=== PATIENT | female | born 1940 | race Two or more races ===

== ENCOUNTER → 2017-11-05 | Outpatient (CLI) | payer MEDICARE, OTHER ==
[2017-11-05 12:52] LABS: HCT 34.7 % (34.0-46.0); MCH 28.3 pg (25.0-35.0); MCHC 31.8 g/dL (31.0-37.0); MCV 89.2 fL (80.0-100.0); Mean Platelet Volume 7.1; Platelet Count 372 k/uL (150-450); RBC 3.89 m/uL (3.80-5.40); RDW 14.3 % (11.5-15.5)
[2017-11-05 13:07] LABS: Potassium 3.9 mmol/L (3.5-5.1)
== END | disposition home or self-care (01) ==
LOC: LABPAT 11:46
PROVIDERS: ATTEND Surgery
DX: Z01.812 Encounter for preprocedural laboratory examination (principal); C18.2 Malignant neoplasm of ascending colon
CPT/HCPCS: 36415; 80051; 85027

== ENCOUNTER 2017-11-12 07:51 | Inpatient (IN) | payer MEDICARE, OTHER ==
[2017-11-08 15:12] VITALS: BMI 45.3
[~2017-11-12 07:51] MED LIST: HYDROmorphone 0.5 MG/0.5 ML SYRINGE IVP PRN; MORPHINE SULFATE 4 MG/ML SYRINGE IV PRN; ONDANSETRON 4 MG/2 ML VIAL IVP PRN; ceFAZolin IN SWFI 2 GM/20 ML SYRINGE IVP ONE; metroNIDAZOLE-NS PMX 500 MG in SALINE 1 100ML.BAG IVPB ONE
--- NOTE | 2017-11-12 09:09 | P.GSHP ---
History of Present Illness H&P Date: 11/12/17 Chief Complaint: Cecal cancer Patient underwent service. She was seen in the office in mid September. The patient was found to have a friable mass in the cecum. She was found to be anemic. She describes some constipation at times. She had a CAT scan showing no metastatic spread. Normal CEA level. The patient is oxygen dependent. Recent hemoglobin 11 Past Medical History Past Medical History: Cancer, COPD, GI Bleed, Hyperlipidemia, Hypertension Additional Past Medical History / Comment(s): colon cancer, anemia, frequent urinary incontinence. 02-2.5L/NC, taking antibiotics prior to surgery for sinus issues History of Any Multi-Drug Resistant Organisms: None Reported Past Surgical History: Appendectomy, Breast Surgery, Hernia Repair, Hysterectomy , Tubal Ligation Past Anesthesia/Blood Transfusion Reactions: No Reported Reaction Smoking Status: Former smoker - Past Family History Sister(s) Family Medical History: Cancer, Coronary Artery Disease (CAD), Neurologic Disorder Additional Family Medical History / Comment(s): colon cancer, 2nd sister with MS Medications and Allergies Home Medications Medication Instructions Recorded Confirmed Type ALPRAZolam [Xanax] 0.25 mg PO DAILY PRN 11/08/17 11/12/17 History Amoxicillin 875 mg PO Q12HR 11/08/17 11/12/17 History Aspirin [Adult Low Dose Aspirin EC] 81 mg PO DAILY 11/08/17 11/12/17 History Ferrous Sulfate [Feosol] 325 mg PO BID 11/08/17 11/12/17 History Mirabegron [Myrbetriq] 50 mg PO DAILY 11/08/17 11/12/17 History Montelukast Sodium [Singulair] 10 mg PO HS 11/08/17 11/12/17 History Sertraline [Zoloft] 100 mg PO DAILY 11/08/17 11/12/17 History Simvastatin [Zocor] 20 mg PO HS 11/08/17 11/12/17 History Stool Softener 1 dose PO DAILY 11/08/17 11/12/17 History Valsartan/Hydrochlorothiazide 1 each PO DAILY 11/08/17 11/12/17 History [Valsartan-Hctz 160-12.5 mg Tab] Allergies Allergy/AdvReac Type Severity Reaction Status Date / Time Sulfa (Sulfonamide Allergy dry mouth Verified 11/12/17 08:39 Antibiotics) with difficulty swallowing Surgical - Exam Vital Signs Temp Pulse Resp BP Pulse Ox 98.0 F 94 16 123/68 98 11/12/17 08:30 11/12/17 08:30 11/12/17 08:30 11/12/17 08:30 11/12/17 08:30 Physical exam: General: Well-developed, well-nourished HEENT: Normocephalic, sclerae nonicteric Abdomen: Nontender, nondistended Extremities: No edema Neuro: Alert and oriented Assessment and Plan (1) Colon cancer Narrative/Plan: Will proceed with laparoscopic da Morteza assisted right colectomy, possible open right colectomy. Surgical risks were previously reviewed with the patient in detail. She understands and wishes to proceed. Please refer to H&P from my office on 10/10. Current Visit: Yes Status: Acute Code(s): C18.9 - MALIGNANT NEOPLASM OF COLON, UNSPECIFIED SNOMED Code(s): 159775596
[2017-11-12] MEDS: ALVIMOPAN 12 MG CAPSULE PO ONE ×2 (09:26→18:03)
[2017-11-12] MEDS: DEXAMETHASONE SOD PHOSPHATE 10 MG/ML 1 ML VIAL IV ONE ×2 (09:26→18:01)
[2017-11-12] MEDS: LACTATED RINGERS 1,000 ML IV SCH (09:26)
[2017-11-12] MEDS: HEPARIN SODIUM,PORCINE 5,000 UNIT/ML 1 ML VIAL SQ ONE ×2 (09:27→18:03)
[2017-11-12] MEDS: ONDANSETRON 4 MG/2 ML VIAL IVP ONE ×2 (09:27→18:02)
[2017-11-12] MEDS ORDERED: BUPIVACAINE (PF) 0.5% 30 ML VIAL SQ ONE (10:35)
[2017-11-12] MEDS ORDERED: LACTATED RINGERS 1,000 ML IV ONE ×3 (11:05→15:06)
[2017-11-12] MEDS ORDERED: INDOCYANINE GREEN 25 MG VIAL IV STA (11:11)
[2017-11-12] MEDS ORDERED: SODIUM CHLORIDE 0.9% 50 ML with ceFAZolin 1,000 MG IV ONE ×2 (14:07)
[2017-11-12] MEDS ORDERED: METOCLOPRAMIDE 5 MG/ML 2 ML VIAL IVP PRN (16:01)
[2017-11-12] MEDS ORDERED: ONDANSETRON 4 MG/2 ML VIAL IVP PRN (16:01)
[2017-11-12] MEDS ORDERED: DOXAPRAM 20 MG/ML 20 ML VIAL IV ONE (16:30)
[2017-11-12] MEDS ORDERED: NALOXONE 0.4 MG/ML 1 ML VIAL IV ONE (16:39)
--- NOTE | 2017-11-12 16:54 | P.OP ---
Date of Procedure: 11/12/17 Procedure(s) Performed: PREOPERATIVE DIAGNOSIS: Right-sided colon cancer POSTOPERATIVE DIAGNOSIS: Same PROCEDURE: Laparoscopic da Morteza assisted right colectomy with intracorporeal anastomosis SURGEON: Nicole EBL: Minimal see anesthesia records ANESTHESIA: General COMPLICATIONS: None OPERATIVE PROCEDURE: Patient was placed on the operating table in the supine position. The patient was placed under general anesthesia. A Wong catheter was placed. The patient's arms were tucked. The abdomen was prepped and draped in usual sterile fashion. Using the 5 mm optical trocar entered the perineal cavity in the left upper quadrant. Full insufflation took place to 15 mmHg. 3 additional trochars were placed for the robot a 12 mm in the left subcostal a 8 mm in the left lateral infraumbilical and a 12 mm in the superpubic location. A 5 mm trocar was placed in the left lateral abdomen. During the procedure this trocar was not staying in the peritoneal cavity and this was switched to an extended length 5. As a result of that trocar moving in and out of the peritoneum the patient developed some degree of subcutaneous emphysema at the completion of the procedure. The patient had adhesions between the omentum and the lower midline that were lysed using sharp dissection with cautery. The patient was placed in Trendelenburg right side up. The retroperitoneum was evaluated. The ileocolic pedicle was identified by retracting the cecum anteriorly and laterally. Careful dissection using both blunt dissection and cautery took place in the retroperitoneum. The duodenum was quickly identified despite the excess fatty tissue and this was protected throughout the remainder of the procedure. Our dissection took place laterally and circumferentially around the ileocolic pedicle. The ileocolic pedicle was divided using a 45 white load stapler. Once we reached the lateral abdomen from our retroperitoneal approach the ileum cecum and ascending colon were mobilized by incising the lateral peritoneal attachments. We entered into a retroperitoneal dissection plane. The ureter was not visualized however we maintained a plane anterior to the anticipated location of the ureter. The hepatic flexure was mobilized in a similar fashion although in that location we started using the vessel sealer. The gastrocolic omentum was dissected away from the proximal transverse colon. Once we were able to visualize the transverse colon and hepatic flexure well the transverse colon was divided using a blue load 45 stapler 2. The mesentery of the transverse colon was then divided using a combination of the vessel sealer and also the white load vascular 45 stapler. At this point our specimen was free and placed in the left upper quadrant. Irrigation took place of the operative site and no bleeding was seen. The terminal ileum was brought in an isoperistaltic manner adjacent to the transverse colon. 2 separate 3-0 GI silk stay sutures were placed proximally and distally. Small enterotomy and colotomy took place. At that time stapler was fired along the antimesenteric border of both the small bowel and the colon. 2 separate firings of the 45 blue load stapler were utilized. We had an adequate opening between the small bowel and colon at that point. The defect was closed transversely using a running full-thickness 20V lock suture. Once the defect was closed I used a running horizontal mattress Lambert suture along the length of the staple line and imbricated that entire staple line using the same 20V lock suture. The previously placed 3-0 GI silk sutures acted as stay sutures proximally and distally. Again irrigation took place with no evidence of bleeding. The specimen was grasped through the supraumbilical trocar site and the pneumoperitoneum was evacuated. The incision in the supraumbilical location was lengthened vertically through the previous hysterectomy scar site. The patient had very impressive amount of subcutaneous fat and the distance between the skin and the fascia at that location was approximately 10-12 cm. The fascia was opened lengthwise. The specimen was able to be retrieved. We were unable to use the Cristofer retractor that we had opened because of the distance between the skin and the peritoneum. The fascia was closed using a running double-stranded #1 PDS suture. The subcutaneous tissues were irrigated with saline. The subcutaneous tissues were closed using 3-0 Vicryl sutures. The skin at all locations were closed using isacc. Sterile dressings were applied. DISPOSITION: Stable to recovery room
[2017-11-12] MEDS: D5-0.45% NACL WITH KCL 20MEQ/L 1,000 ML IV SCH (18:05)
--- NOTE | 2017-11-12 19:17 | P.CNPUL ---
History of Present Illness Consult date: 11/12/17 Reason for consult: COPD History of present illness: A 77-year-old female patient is a very well-known to me due to advanced COPD, chronic hypoxic respiratory failure and I was asked to follow up this patient and evaluate her pulmonary status following her abdominal surgery. The patient was having iron loss anemia and she was further found to have a right colonic mass. The patient was taken to the operating room today and the patient underwent a Laparoscopic da Morteza assisted right colectomy with intracorporeal anastomosis. Estimated blood loss was minimal. I had a chance to evaluate this patient preoperatively for a preoperative pulmonary clearance. She has chronic hypoxic respiratory failure due to advanced COPD. She is on oxygen at all times and her baseline FEV1 based on a spirometer that was done back in 2016 is in the order of 40-41%. on today's evaluation her FEV1 is up to 56% of predicted at baseline. The patient has limitation exercise capacity secondary to COPD. She is able to perform activities of daily today life however she gets short of breath with mild to moderate activity and she is having hard time difficulties climbing a flight of stairs. No cough. No sputum production pedal chest pain. No signs of any recent COPD exacerbation. She is on a combination of Brovana and Pulmicort neb last treatment twice a day and albuterol solution twice a day. No swelling in lower extremities. No signs of any acute heart failure at this point. The patient has adequate pain control. She is under a lot of 0.5 mg on estimated basis. She is on Zofran. Hemodynamically stable. Awake and alert. No no breathing difficulties for now. She is pulse oxing 95% 2 L of oxygen by nasal cannula. Review of Systems Constitutional Constitutional: no fever, no night sweats, no significant weight loss, no exercise intolerance, weight gain (5lbs) Eyes Eyes: no dry eyes, no vision change, no irritation ENMT Ears: no difficulty hearing, no ear pain Nose: no frequent nosebleeds, no sinus problems, nose problems Mouth/Throat: no sore throat, no bleeding gums, no snoring, no dry mouth, no mouth ulcers, no oral abnormalities, no teeth problems Cardiovascular Cardiovascular: no chest pain, no arm pain on exertion, no shortness of breath when lying down, no palpitations, no known heart murmur, shortness of breath when walking Respiratory Respiratory: no cough, no wheezing, no coughing up blood, no sleep apnea, shortness of breath which is chronic related to her advanced COPD. Gastrointestinal Gastrointestinal: no abdominal pain, no nausea, no vomiting, normal appetite, no diarrhea, not vomiting blood, no dyspepsia, no GERD, constipation Genitourinary Genitourinary: no incontinence, no difficulty urinating, no hematuria, no increased frequency Musculoskeletal Musculoskeletal: no muscle aches, no muscle weakness, no back pain, no swelling in the extremities, arthralgias/joint pain Integumentary Skin: no abnormal mole, no jaundice, no rashes, no laceration Neurologic Neurologic: no loss of consciousness, no weakness, no numbness, no seizures, no dizziness, no migraines, no headaches, no tremor Psychiatric Psych: no depression, no sleep disturbances, feeling safe in a relationship, no alcohol abuse, no anxiety, no hallucinations, no suicidal thoughts Endocrine Endocrine: no fatigue Hematologic/Lymphatic Hematologic/Lymphatic no swollen glands, no bruising, no excessive bleeding Allergic/Immunologic Allergy/Immunologic: no runny nose, no sinus pressure, no itching, no hives, no frequent sneezing 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, hypertension, hyperlipidemia, obesity History of Any Multi-Drug Resistant Organisms: None Reported Past Surgical History: Appendectomy, Breast Surgery, Hernia Repair, Hysterectomy , Tubal Ligation Past Anesthesia/Blood Transfusion Reactions: No Reported Reaction Smoking Status: Former smoker - Past Family History Sister(s) Family Medical History: Cancer, Coronary Artery Disease (CAD), Neurologic Disorder Additional Family Medical History / Comment(s): colon cancer, 2nd sister with MS Medications and Allergies Home Medications Medication Instructions Recorded Confirmed Type ALPRAZolam [Xanax] 0.25 mg PO DAILY PRN 11/08/17 11/12/17 History Amoxicillin 875 mg PO Q12HR 11/08/17 11/12/17 History Aspirin [Adult Low Dose Aspirin EC] 81 mg PO DAILY 11/08/17 11/12/17 History Ferrous Sulfate [Feosol] 325 mg PO BID 11/08/17 11/12/17 History Mirabegron [Myrbetriq] 50 mg PO DAILY 11/08/17 11/12/17 History Montelukast Sodium [Singulair] 10 mg PO HS 11/08/17 11/12/17 History Sertraline [Zoloft] 100 mg PO DAILY 11/08/17 11/12/17 History Simvastatin [Zocor] 20 mg PO HS 11/08/17 11/12/17 History Stool Softener 1 dose PO DAILY 11/08/17 11/12/17 History Valsartan/Hydrochlorothiazide 1 tab PO DAILY 11/08/17 11/12/17 History [Valsartan-Hctz 160-12.5 mg Tab] Allergies Allergy/AdvReac Type Severity Reaction Status Date / Time Sulfa (Sulfonamide Allergy dry mouth Verified 11/12/17 08:39 Antibiotics) with difficulty swallowing Physical Exam Vitals: Vital Signs Temp Pulse Pulse Resp BP BP Pulse Ox 11/12/17 17:30 88 16 139/63 95 11/12/17 17:15 90 16 131/57 95 11/12/17 16:45 108 H 14 142/63 94 L 11/12/17 16:30 97 16 164/69 99 11/12/17 16:15 92 12 151/66 98 11/12/17 16:05 97.2 F L 102 H 22 156/76 96 11/12/17 08:30 98.0 F 94 16 123/68 98 Intake and Output 11/12/17 11/12/17 11/12/17 06:59 14:59 22:59 Intake Total 3250 1000 Output Total 550 Balance 3250 450 Intake: IV 3250 1000 Output: Urine 450 Estimated Blood Loss 100 General Appearance no diaphoresis, no respiratory distress, speech not interrupted by breaths, no dyspnea, no pallor, not cachectic, well nourished, appears well, obesity HEENT no pursed lip breathing, no jugular venous distention, no mucous membrane cyanosis, no perioral cyanosis, mallampati classification: class 1, Mallampati Classification: Class 3 Chest no barrel chest, no retractions, no sternocleidomastoid muscle contractions, no supraclavicular retractions, no intercostal retractions, no prolonged expiratory wheezing, no decreased air movement, no rhonchi, no hyperinflation, decreased air movement Heart no right ventricular heave, no distant heart sounds, no s3 gallop GI bowel sounds: hyperactive (borborygmi), bowel sounds: diminished or absent. Abdominal wound is dry clean and intact at this point. No significant tenderness or rebound tensile guarding. Extremities no cyanosis, no clubbing, no edema Neurologic no decreased mental status, no somnolence, no confusion Examination of the skin revealed no evidence of significant rashes, suspicious appearing nevi or other concerning lesions. Skeletal examination shows no deformities or fractures Psychiatric history shows no anxiety or depression and the mode is appropriate. Assessment and Plan Plan: Assessment 1 colon cancer status post right hemicolectomy, robotic-assisted, patient is postop day #0 2 severe COPD at baseline with an FEV1 of 56% of predicted at baseline 3 chronic hypoxic respiratory failure maintained on oxygen at 2 L/m nasal cannula 4 hypertension 5 hyperlipidemia 6 obesity with a current BMI of 45.3 7 iron deficiency anemia related to a occult GI bleed/cecal mass Plan Patient is doing extremely well. She is awake. She is alert. We will recommend using narcotic agents very cautiously special with advanced COPD and her tendency to hypoventilate. She is currently on 2 L of oxygen nasal cannula. Hemodynamically stable. Pain is under good control. She'll be encouraged to use incentive spirometer. Labs for tomorrow. Heparin subcu for DVT prophylaxis. DuoNeb neb last 2 minutes on the clock. D5 half-normal with potassium supplements at the rate of 125 mL an hour. We'll continue to follow.
[2017-11-12] MEDS: IPRATROPIUM-ALBUTEROL 3 ML NEB INHALATION SCH (20:48)
[2017-11-12] MEDS: FAMOTIDINE 20 MG/2 ML VIAL IV SCH (22:02)
[2017-11-13] MEDS: HEPARIN SODIUM,PORCINE 5,000 UNIT/ML 1 ML VIAL SQ SCH ×3 (00:17→18:34)
[2017-11-13] MEDS: D5-0.45% NACL WITH KCL 20MEQ/L 1,000 ML IV SCH ×3 (03:00→17:25)
[2017-11-13] MEDS: HYDROcodone/APAP 5-325MG 1 EACH TAB PO PRN ×3 (06:45→23:15)
[2017-11-13] MEDS: IPRATROPIUM-ALBUTEROL 3 ML NEB INHALATION SCH ×4 (07:22→19:04)
[2017-11-13 08:17] LABS: Basophils % (A) 0 %; Eosinophils % (A) 0 %; HCT 34.4 % (34.0-46.0); HGB 10.4 gm/dL (11.4-16.0); Hypochromasia Slight; Lymphocytes % (A) 11 %; MCH 27.4 pg (25.0-35.0); MCHC 30.2 g/dL (31.0-37.0); MCV 90.8 fL (80.0-100.0); Mean Platelet Volume 8.7; Monocytes # (A) 0.5 k/uL (0-1.0); Monocytes % (A) 6 %; Neutrophils # (A) 7.2 k/uL (1.3-7.7); Neutrophils % (A) 81 %; Platelet Count 351 k/uL (150-450); RBC 3.79 m/uL (3.80-5.40); RDW 14.4 % (11.5-15.5); WBC 8.8 k/uL (3.8-10.6)
[2017-11-13 08:43] LABS: Calcium 8.7 mg/dL (8.4-10.2); Potassium 4.4 mmol/L (3.5-5.1)
[2017-11-13] MEDS: FAMOTIDINE 20 MG/2 ML VIAL IV SCH (09:07)
[2017-11-13] MEDS: ALVIMOPAN 12 MG CAPSULE PO SCH ×2 (09:08→20:43)
--- NOTE | 2017-11-13 11:38 | P.CONS ---
History of Present Illness - Reason for Consult COPD - History of Present Illness 77-year-old female admitted for colectomy for for colonic mass patient's external surgery patient did not pass gas and patient is is doing well is comparing of some pain now. Patient underwent colectomy with end-to-end anastomosis without a colostomy. Patient denied any fever chills nausea vomiting patient. Patient does have history of COPD patient is presently wheezing on exam patient uses 2 L of onset and patient is presently on today's of oxygen. Patient denied any dysuria. Review of Systems REVIEW OF SYSTEMS: CONSTITUTIONAL: No fever, no malaise, no fatigue. HEENT: No recent visual problems or hearing problems. Denied any sore throat. CARDIOVASCULAR: No chest pain, orthopnea, PND, no palpitations, no syncope. PULMONARY: No shortness of breath, no cough, no hemoptysis. GASTROINTESTINAL: No diarrhea, no nausea, no vomiting, no abdominal pain. Normoactive bowel sounds. NEUROLOGICAL: No headaches, no weakness, no numbness. HEMATOLOGICAL: Denies any bleeding or petechiae. GENITOURINARY: Denies any burning micturition, frequency, or urgency. MUSCULOSKELETAL/RHEUMATOLOGICAL: Denies any joint pain, swelling, or any muscle pain. ENDOCRINE: Denies any polyuria or polydipsia. The rest of the 14-point review of systems is negative. 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, hypertension, hyperlipidemia, obesity History of Any Multi-Drug Resistant Organisms: None Reported Past Surgical History: Appendectomy, Breast Surgery, Hernia Repair, Hysterectomy , Tubal Ligation Past Anesthesia/Blood Transfusion Reactions: No Reported Reaction Smoking Status: Former smoker - Past Family History Sister(s) Family Medical History: Cancer, Coronary Artery Disease (CAD), Neurologic Disorder Additional Family Medical History / Comment(s): colon cancer, 2nd sister with MS Medications and Allergies Home Medications Medication Instructions Recorded Confirmed Type ALPRAZolam [Xanax] 0.25 mg PO DAILY PRN 11/08/17 11/12/17 History Amoxicillin 875 mg PO Q12HR 11/08/17 11/12/17 History Aspirin [Adult Low Dose Aspirin EC] 81 mg PO DAILY 11/08/17 11/12/17 History Ferrous Sulfate [Feosol] 325 mg PO BID 11/08/17 11/12/17 History Mirabegron [Myrbetriq] 50 mg PO DAILY 11/08/17 11/12/17 History Montelukast Sodium [Singulair] 10 mg PO HS 11/08/17 11/12/17 History Sertraline [Zoloft] 100 mg PO DAILY 11/08/17 11/12/17 History Simvastatin [Zocor] 20 mg PO HS 11/08/17 11/12/17 History Stool Softener 1 dose PO DAILY 11/08/17 11/12/17 History Valsartan/Hydrochlorothiazide 1 tab PO DAILY 11/08/17 11/12/17 History [Valsartan-Hctz 160-12.5 mg Tab] Allergies Allergy/AdvReac Type Severity Reaction Status Date / Time Sulfa (Sulfonamide Allergy dry mouth Verified 11/12/17 08:39 Antibiotics) with difficulty swallowing Physical Exam Vitals: Vital Signs Temp Pulse Pulse Pulse Resp BP Pulse Ox 11/13/17 11:19 88 11/13/17 11:06 88 11/13/17 07:36 92 11/13/17 07:23 88 11/13/17 07:00 98.2 F 84 18 128/86 98 11/12/17 23:00 97.7 F 96 16 131/89 98 11/12/17 21:44 97.5 F L 99 16 135/68 96 11/12/17 21:15 100 11/12/17 20:49 100 98 11/12/17 20:44 90 17 142/78 11/12/17 20:14 98 146/75 11/12/17 19:44 99 140/73 11/12/17 19:29 101 H 137/75 11/12/17 19:14 100 139/77 11/12/17 18:59 96 137/69 11/12/17 18:44 97 142/74 11/12/17 18:19 100 137/70 98 11/12/17 18:04 98.5 F 101 H 18 130/67 95 11/12/17 17:30 88 16 139/63 95 11/12/17 17:15 90 16 131/57 95 11/12/17 16:45 108 H 14 142/63 94 L 11/12/17 16:30 97 16 164/69 99 11/12/17 16:15 92 12 151/66 98 11/12/17 16:05 97.2 F L 102 H 22 156/76 96 Intake and Output 11/12/17 11/13/17 11/13/17 22:59 06:59 14:59 Intake Total 1375 1000 Output Total 550 1100 Balance 825 1000 -1100 Intake: IV 1000 Intake, IV Titration 375 1000 Amount D5-0.45% NaCl with KCl 375 1000 20Meq/l 1,000 ml @ 125 mls/hr IV .Q8H [facility] Rx#: [id number] Output: Urine 450 1100 Uretheral (Wong) 1100 Estimated Blood Loss 100 Other: Voiding Method Indwelling Catheter Toilet Weight 105.233 kg PHYSICAL EXAMINATION: GENERAL: The patient is alert and oriented x3, not in any acute distress. Well developed, well nourished. HEENT: Pupils are round and equally reacting to light. EOMI. No scleral icterus. No conjunctival pallor. Normocephalic, atraumatic. No pharyngeal erythema. No thyromegaly. CARDIOVASCULAR: S1 and S2 present. No murmurs, rubs, or gallops. PULMONARY: Faint expiratory wheezing on exam no crackles were appreciated ABDOMEN: Soft, nontender, nondistended, bowel sounds surgical site areas appear to be clean. MUSCULOSKELETAL: No joint swelling or deformity. EXTREMITIES: No cyanosis, clubbing, or pedal edema. NEUROLOGICAL: Gross neurological examination did not reveal any focal deficits. SKIN: No rashes. Results CBC & Chem 7: 11/13/17 07:57 11/13/17 07:57 Labs: Abnormal Lab Results - Last 24 Hours (Table) 11/13/17 11/13/17 Range/Units 07:57 07:57 RBC 3.79 L (3.80-5.40) m/uL Hgb 10.4 L (11.4-16.0) gm/dL MCHC 30.2 L (31.0-37.0) g/dL Carbon Dioxide 32 H (22-30) mmol/L Glucose 120 H (74-99) mg/dL Assessment and Plan Plan: -COPD with minimal exacerbation patient was started on inhalational steroids, albuterol ipratropium inhalational. -Status post colectomy without colostomy postoperative day one for colonic mass and cancer: Pain management as per primary service due to prophylaxis as per primary service. -Chronic respiratory failure hypercapnic: Secondary to COPD -Hypertension -Hyperlipidemia Patient will be resumed and continued on appropriate home medications medication reconciliation was reviewed
[2017-11-13] MEDS: LIDOCAINE 5% PATCH TOPICAL SCH (12:10)
--- NOTE | 2017-11-13 12:40 | P.PN ---
Subjective Progress Note Date: 11/13/17 A 77-year-old female patient is a very well-known to me due to advanced COPD, chronic hypoxic respiratory failure and I was asked to follow up this patient and evaluate her pulmonary status following her abdominal surgery. The patient was having iron loss anemia and she was further found to have a right colonic mass. The patient was taken to the operating room today and the patient underwent a Laparoscopic da Morteza assisted right colectomy with intracorporeal anastomosis. Estimated blood loss was minimal. I had a chance to evaluate this patient preoperatively for a preoperative pulmonary clearance. She has chronic hypoxic respiratory failure due to advanced COPD. She is on oxygen at all times and her baseline FEV1 based on a spirometer that was done back in 2015 is in the order of 40-41%. on today's evaluation her FEV1 is up to 56% of predicted at baseline. The patient has limitation exercise capacity secondary to COPD. She is able to perform activities of daily today life however she gets short of breath with mild to moderate activity and she is having hard time difficulties climbing a flight of stairs. No cough. No sputum production pedal chest pain. No signs of any recent COPD exacerbation. She is on a combination of Brovana and Pulmicort neb last treatment twice a day and albuterol solution twice a day. No swelling in lower extremities. No signs of any acute heart failure at this point. The patient has adequate pain control. She is under a lot of 0.5 mg on estimated basis. She is on Zofran. Hemodynamically stable. Awake and alert. No no breathing difficulties for now. She is pulse oxing 95% 2 L of oxygen by nasal cannula. On 11/14/2079 I'm seeing this patient for a follow-up. The patient is doing well. She is recovering nicely from abdominal surgery. She patient underwent a robotic colectomy and the patient is postop day #1. The patient is looking better and the patient has no pain issues. No respiratory difficulties. No cough sputum production chest tightness or wheezing. She is hemodynamically stable at this point. No other new complaints for now pH is using incentive spirometer. Pulse oxing 95% on 2 L. She is on DuoNeb neb last treatment around -the-clock. Objective - Vital Signs Vital signs: Vital Signs Temp 98.2 F 11/13/17 07:00 Pulse 88 11/13/17 11:19 Resp 18 03/27/18 07:00 BP 128/86 11/13/17 07:00 Pulse Ox 98 11/13/17 07:00 Intake & Output 11/12/17 11/13/17 11/13/17 18:59 06:59 18:59 Intake Total 4250 1375 Output Total 550 1100 Balance 3700 1375 -1100 Weight 105.233 kg Intake: IV 4250 Intake, IV Titration 1375 Amount D5-0.45% NaCl with KCl 1375 20Meq/l 1,000 ml @ 125 mls/hr IV .Q8H [facility] Rx#: [id number] Output: Urine 450 1100 Uretheral (Wong) 1100 Estimated Blood Loss 100 Other: Voiding Method Indwelling Catheter Toilet - Exam General Appearance no diaphoresis, no respiratory distress, speech not interrupted by breaths, no dyspnea, no pallor, not cachectic, well nourished, appears well, obesity HEENT no pursed lip breathing, no jugular venous distention, no mucous membrane cyanosis, no perioral cyanosis, mallampati classification: class 1, Mallampati Classification: Class 3 Chest no barrel chest, no retractions, no sternocleidomastoid muscle contractions, no supraclavicular retractions, no intercostal retractions, no prolonged expiratory wheezing, no decreased air movement, no rhonchi, no hyperinflation, decreased air movement Heart no right ventricular heave, no distant heart sounds, no s3 gallop GI bowel sounds: hyperactive (borborygmi), bowel sounds: diminished or absent. Abdominal wound is dry clean and intact at this point. No significant tenderness or rebound tensile guarding. Extremities no cyanosis, no clubbing, no edema Neurologic no decreased mental status, no somnolence, no confusion Examination of the skin revealed no evidence of significant rashes, suspicious appearing nevi or other concerning lesions. Skeletal examination shows no deformities or fractures Psychiatric history shows no anxiety or depression and the mode is appropriate. - Labs CBC & Chem 7: 11/13/17 07:57 11/13/17 07:57 Labs: Abnormal Lab Results - Last 24 Hours (Table) 11/13/17 11/13/17 Range/Units 07:57 07:57 RBC 3.79 L (3.80-5.40) m/uL Hgb 10.4 L (11.4-16.0) gm/dL MCHC 30.2 L (31.0-37.0) g/dL Carbon Dioxide 32 H (22-30) mmol/L Glucose 120 H (74-99) mg/dL Assessment and Plan Plan: Assessment 1 colon cancer status post right hemicolectomy, robotic-assisted, patient is postop day #1 2 severe COPD at baseline with an FEV1 of 56% of predicted at baseline 3 chronic hypoxic respiratory failure maintained on oxygen at 2 L/m nasal cannula 4 hypertension 5 hyperlipidemia 6 obesity with a current BMI of 45.3 7 iron deficiency anemia related to a occult GI bleed/cecal mass Plan Patient is doing extremely well. Encourage ambulation. Encourage use of incentive spirometer. Encourage use of neb last treatment [id number]. Adequate pain control. Advance diet. We'll continue to follow
--- NOTE | 2017-11-13 16:32 | XR ---
EXAMINATION TYPE: XR thoracic spine complete DATE OF EXAM: 11/13/2017 CLINICAL HISTORY: pain TECHNIQUE: Frontal, lateral, and swimmer's view of thoracic spine are obtained. COMPARISON: None. FINDINGS: Thoracic spine show satisfactory alignment without evidence of acute fracture or dislocatio n. Vertebral body heights are preserved. [id number] multilevel degenerative disc space narrowi ng and spondylosis. Visualized ribs are unremarkable. IMPRESSION: No acute fracture or dislocation is seen in the thoracic spine. ICD 10 NO FRACTURE, INITIAL EVALUATION
[2017-11-13] MEDS: SYMBICORT 160-4.5 MCG INHALER INHALATION SCH (19:06)
--- NOTE | 2017-11-13 20:05 | P.PN ---
Subjective Progress Note Date: 11/13/17 Principal diagnosis: Right-sided colon cancer Patient doing well today. Minimal pain. No bowel function. Tolerating liquids. She is ambulating. Her IV did go bad and therefore waiting for repeat attempts at IV placement. She is afebrile. Labs reviewed. Objective - Vital Signs Vital signs: Vital Signs Temp 98 F 11/13/17 14:56 Pulse 101 H 11/13/17 19:16 Resp 16 11/13/17 19:16 BP 95/50 11/13/17 14:56 Pulse Ox 97 11/13/17 19:06 Intake & Output 11/13/17 11/13/17 11/14/17 06:59 18:59 06:59 Intake Total 1375 1000 Output Total 1100 Balance 1375 -100 Intake: Intake, IV Titration 1375 1000 Amount D5-0.45% NaCl with KCl 1375 1000 20Meq/l 1,000 ml @ 125 mls/hr IV .Q8H [facility] Rx#: [id number] Output: Urine 1100 Uretheral (Wong) 1100 Other: Voiding Method Indwelling Catheter Toilet - Exam Abdomen: Soft, nondistended, incisions clean and dry, minimal tenderness lower abdomen - Labs CBC & Chem 7: 11/13/17 07:57 11/13/17 07:57 Labs: Abnormal Lab Results - Last 24 Hours (Table) 11/13/17 11/13/17 Range/Units 07:57 07:57 RBC 3.79 L (3.80-5.40) m/uL Hgb 10.4 L (11.4-16.0) gm/dL MCHC 30.2 L (31.0-37.0) g/dL Carbon Dioxide 32 H (22-30) mmol/L Glucose 120 H (74-99) mg/dL Assessment and Plan (1) Colon cancer Narrative/Plan: Patient doing well postoperative day. She states her breathing is the same as it was preoperatively. Will decrease IV fluid rate once IV replaced. Advance diet. Increase activity. Current Visit: Yes Status: Acute Code(s): C18.9 - MALIGNANT NEOPLASM OF COLON, UNSPECIFIED SNOMED Code(s): 814971760
[2017-11-14] MEDS: LACTATED RINGERS 1,000 ML IV SCH (01:05)
[2017-11-14] MEDS: HEPARIN SODIUM,PORCINE 5,000 UNIT/ML 1 ML VIAL SQ SCH ×4 (01:06→23:19)
[2017-11-14] MEDS: D5-0.45% NACL WITH KCL 20MEQ/L 1,000 ML IV SCH ×2 (01:07→13:11)
--- NOTE | 2017-11-14 07:08 | P.PN ---
Subjective Progress Note Date: 11/14/17 Principal diagnosis: Right-sided colon cancer Patient feels well today. No bowel movement or flatus. Minimal pain. She is able to ambulate about the room on her own. Appetite improving. Abdominal binder was placed last night. Morning labs pending. Objective - Vital Signs Vital signs: Vital Signs Temp 97.3 F L 11/13/17 23:00 Pulse 101 H 11/14/17 00:00 Resp 18 11/14/17 00:00 BP 106/66 11/13/17 23:00 Pulse Ox 95 11/13/17 23:00 Intake & Output 11/13/17 11/14/17 11/14/17 18:59 06:59 18:59 Intake Total 1000 1190 Output Total 1100 Balance -100 1190 Intake: Intake, IV Titration 1000 Amount D5-0.45% NaCl with KCl 1000 20Meq/l 1,000 ml @ 125 mls/hr IV .Q8H [facility] Rx#: [id number] Oral 1190 Output: Urine 1100 Uretheral (Wong) 1100 Other: Voiding Method Toilet Toilet # Voids 4 - Exam Abdomen: Soft, nondistended, mild tenderness, incisions clean and dry - Labs CBC & Chem 7: 11/13/17 07:57 11/13/17 07:57 Labs: Abnormal Lab Results - Last 24 Hours (Table) 11/13/17 11/13/17 Range/Units 07:57 07:57 RBC 3.79 L (3.80-5.40) m/uL Hgb 10.4 L (11.4-16.0) gm/dL MCHC 30.2 L (31.0-37.0) g/dL Carbon Dioxide 32 H (22-30) mmol/L Glucose 120 H (74-99) mg/dL Assessment and Plan (1) Colon cancer Narrative/Plan: Will increase diet at this time. Continue ambulation with physical therapy to see patient today. Continue abdominal binder. Hopefully discharge by Sunday. I will be leaving town this evening. Dr. Saleh will cover in my absence. Current Visit: Yes Status: Acute Code(s): C18.9 - MALIGNANT NEOPLASM OF COLON, UNSPECIFIED SNOMED Code(s): 735995218
[2017-11-14 08:09] LABS: Basophils % (A) 1 %; Eosinophils # (A) 0.3 k/uL (0-0.7); Eosinophils % (A) 4 %; HCT 33.7 % (34.0-46.0); Lymphocytes # (A) 1.5 k/uL (1.0-4.8); Lymphocytes % (A) 20 %; MCH 28.9 pg (25.0-35.0); MCHC 32.8 g/dL (31.0-37.0); MCV 88.1 fL (80.0-100.0); Mean Platelet Volume 7.7; Monocytes # (A) 0.6 k/uL (0-1.0); Monocytes % (A) 8 %; Neutrophils # (A) 4.8 k/uL (1.3-7.7); Neutrophils % (A) 65 %; Platelet Count 303 k/uL (150-450); RBC 3.82 m/uL (3.80-5.40); RDW 13.9 % (11.5-15.5); WBC 7.3 k/uL (3.8-10.6)
[2017-11-14 08:20] LABS: Anion Gap 7 mmol/L; Blood Urea Nitrogen 8 mg/dL (7-17); Calcium 8.8 mg/dL (8.4-10.2); Carbon Dioxide 28 mmol/L (22-30); Chloride 106 mmol/L (98-107); Glucose 79 mg/dL (74-99); Sodium 141 mmol/L (137-145)
[2017-11-14 08:24] LABS: Potassium 4.6 mmol/L (3.5-5.1)
[2017-11-14] MEDS: IPRATROPIUM-ALBUTEROL 3 ML NEB INHALATION SCH ×4 (09:08→20:34)
[2017-11-14] MEDS: SYMBICORT 160-4.5 MCG INHALER INHALATION SCH ×2 (09:08→20:34)
[2017-11-14] MEDS: LIDOCAINE 5% PATCH TOPICAL SCH (09:37)
[2017-11-14] MEDS: HYDROcodone/APAP 5-325MG 1 EACH TAB PO PRN ×3 (09:37→23:22)
[2017-11-14] MEDS: ALVIMOPAN 12 MG CAPSULE PO SCH ×2 (09:38→23:19)
[2017-11-14] MEDS: FAMOTIDINE 20 MG/2 ML VIAL IV SCH (09:38)
--- NOTE | 2017-11-14 15:35 | P.PN ---
Subjective Progress Note Date: 11/14/17 Principal diagnosis: Colon cancer status post right hemicolectomy, robotic-assisted, postop day 2 A 77-year-old female patient is a very well-known to me due to advanced COPD, chronic hypoxic respiratory failure and I was asked to follow up this patient and evaluate her pulmonary status following her abdominal surgery. The patient was having iron loss anemia and she was further found to have a right colonic mass. The patient was taken to the operating room today and the patient underwent a Laparoscopic da Morteza assisted right colectomy with intracorporeal anastomosis. Estimated blood loss was minimal. I had a chance to evaluate this patient preoperatively for a preoperative pulmonary clearance. She has chronic hypoxic respiratory failure due to advanced COPD. She is on oxygen at all times and her baseline FEV1 based on a spirometer that was done back in 2015 is in the order of 40-41%. on today's evaluation her FEV1 is up to 56% of predicted at baseline. The patient has limitation exercise capacity secondary to COPD. She is able to perform activities of daily today life however she gets short of breath with mild to moderate activity and she is having hard time difficulties climbing a flight of stairs. No cough. No sputum production pedal chest pain. No signs of any recent COPD exacerbation. She is on a combination of Brovana and Pulmicort neb last treatment twice a day and albuterol solution twice a day. No swelling in lower extremities. No signs of any acute heart failure at this point. The patient has adequate pain control. She is under a lot of 0.5 mg on estimated basis. She is on Zofran. Hemodynamically stable. Awake and alert. No no breathing difficulties for now. She is pulse oxing 95% 2 L of oxygen by nasal cannula. On 11/14/2079 I'm seeing this patient for a follow-up. The patient is doing well. She is recovering nicely from abdominal surgery. She patient underwent a robotic colectomy and the patient is postop day #1. The patient is looking better and the patient has no pain issues. No respiratory difficulties. No cough sputum production chest tightness or wheezing. She is hemodynamically stable at this point. No other new complaints for now pH is using incentive spirometer. Pulse oxing 95% on 2 L. She is on DuoNeb neb last treatment around -the-clock. On 11/06/2017 patient seen in follow-up on oncology floor. She denies acute dyspnea, she is compliant with her incentive spirometry, she is able to achieve 2000 on it today. Lung sounds are positive for faint end expiratory wheezing, no rhonchi, no rales noted. She is currently on 2 L per nasal cannula with O2 sat at 98%. She remains afebrile, vital signs are stable. Pain is controlled. Her laparoscopic incisions clean dry and intact, well approximated. Mariya are intact. Patient did have a small bowel movement this morning, she is tolerating her diet. No nausea, no vomiting. Objective - Vital Signs Vital signs: Vital Signs Temp 98.1 F 11/14/17 07:00 Pulse 95 11/14/17 12:25 Resp 18 11/14/17 07:00 BP 126/58 11/14/17 07:00 Pulse Ox 98 11/14/17 07:00 Intake & Output 11/13/17 11/14/17 11/14/17 18:59 06:59 18:59 Intake Total 1000 1190 Output Total 1100 Balance -100 1190 Intake: Intake, IV Titration 1000 Amount D5-0.45% NaCl with KCl 1000 20Meq/l 1,000 ml @ 125 mls/hr IV .Q8H [facility] Rx#: [id number] Oral 1190 Output: Urine 1100 Uretheral (Wong) 1100 Other: Voiding Method Toilet Toilet Toilet # Voids 4 1 - Exam General Appearance no diaphoresis, no respiratory distress, speech not interrupted by breaths, no dyspnea, no pallor, not cachectic, well nourished, appears well, obesity HEENT no pursed lip breathing, no jugular venous distention, no mucous membrane cyanosis, no perioral cyanosis, mallampati classification: class 1, Mallampati Classification: Class 3 Chest no barrel chest, no retractions, no sternocleidomastoid muscle contractions, no supraclavicular retractions, no intercostal retractions, no prolonged wheezing, no decreased air movement, no rhonchi, no hyperinflation, decreased air movement. A few scattered wheezes Heart no right ventricular heave, no distant heart sounds, no s3 gallop GI bowel sounds: hyperactive (borborygmi), bowel sounds: diminished or absent. Abdominal wound is dry clean and intact at this point. No significant tenderness or rebound tensile guarding. Extremities no cyanosis, no clubbing, no edema Neurologic no decreased mental status, no somnolence, no confusion Examination of the skin revealed no evidence of significant rashes, suspicious appearing nevi or other concerning lesions. Skeletal examination shows no deformities or fractures Psychiatric history shows no anxiety or depression and the mode is appropriate. - Labs CBC & Chem 7: 11/14/17 07:35 11/14/17 07:35 Labs: Abnormal Lab Results - Last 24 Hours (Table) 11/14/17 Range/Units 07:35 Hgb 11.0 L (11.4-16.0) gm/dL Hct 33.7 L (34.0-46.0) % Assessment and Plan Plan: Assessment: 1 colon cancer status post right hemicolectomy, robotic-assisted, patient is postop day #2 2 severe COPD at baseline with an FEV1 of 56% of predicted at baseline 3 chronic hypoxic respiratory failure maintained on oxygen at 2 L/m nasal cannula 4 hypertension 5 hyperlipidemia 6 obesity with a current BMI of 45.3 7 iron deficiency anemia related to a occult GI bleed/cecal mass Plan Continue current treatment, continue pulmonary toileting, incentive spirometry and ambulation. Continue DuoNeb, Symbicort. I performed a history & physical examination of the patient and discussed their management with my nurse practitioner, Cassie Pizano. I reviewed the nurse practitioner's note and agree with the documented findings and plan of care. Lung sounds are positive for a few faint expiratory wheezes. The findings and the impression was discussed with the patient. I attest to the documentation by the nurse practitioner. Time with Patient: Less than 30
[2017-11-14] MEDS ORDERED: ALPRAZolam 0.25 MG TAB PO PRN (18:31)
--- NOTE | 2017-11-14 19:02 | PN ---
PROGRESS NOTE DATE OF SERVICE: 11/14/2017 PRESENTING COMPLAINT: Abdominal surgery. INTERVAL HISTORY: Patient is status post right colectomy, feeling better. Did tolerate a full liquid diet. Did have a small bowel movement. Pain is better controlled. Sitting up, breathing at baseline. REVIEW OF SYSTEMS: Done for constitutional, cardiovascular, GI, pulmonary; relevant findings as above. CURRENT MEDICATIONS: Reviewed that include: 1. DuoNeb. 2. Entereg. EXAMINATION: Temperature 98.1, pulse 94, respirations 18, blood pressure 126/58, pulse ox 98% on 2L. GENERAL APPEARANCE: Sitting up edge of the bed, comfortable. BMI 45.3. EYES: Pupils equal. Conjunctivae normal. HEENT: External nose and ears normal. Oral cavity normal. NECK: JVD not raised. Mass not palpable. RESPIRATORY: Effort normal. LUNGS: Diminished breath sounds. CARDIOVASCULAR: First and second sounds normal. No edema. ABDOMEN: Soft. Some tenderness. Bowel sounds present. Liver and spleen not palpable. PSYCHIATRY: Alert and oriented x3. Mood and affect normal. INVESTIGATIONS: White count 7.3, potassium 4.6. ASSESSMENT: 1. Right colectomy with end-to-end anastomosis. 2. Morbid obesity, BMI of 45.3. 3. Chronic obstructive pulmonary disease in an ex-smoker. 4. Essential hypertension. 5. Hyperlipidemia. 6. Chronic hypoxic respiratory failure on 2L of oxygen at home secondary to chronic obstructive pulmonary disease. 7. Depression, not otherwise specified. 8. Chronic urinary stress incontinence. PLAN: Home medications will be resumed. Care was discussed with the patient. Encouraged to ambulate. MMODL / IJN: [id number] /
[2017-11-14] MEDS: MONTELUKAST 10 MG TAB PO SCH (23:18)
[2017-11-14] MEDS: SERTRALINE 100 MG TAB PO SCH (23:18)
[2017-11-14] MEDS: FERROUS SULFATE 325 MG TAB PO SCH (23:18)
[2017-11-14] MEDS: ATORVASTATIN 10 MG TAB PO SCH (23:19)
[2017-11-15 08:26] LABS: Basophils % (A) 1 %; Eosinophils # (A) 0.4 k/uL (0-0.7); Eosinophils % (A) 7 %; HCT 32.1 % (34.0-46.0); HGB 10.3 gm/dL (11.4-16.0); Lymphocytes % (A) 18 %; MCH 28.5 pg (25.0-35.0); MCHC 31.9 g/dL (31.0-37.0); MCV 89.2 fL (80.0-100.0); Mean Platelet Volume 7.2; Monocytes # (A) 0.4 k/uL (0-1.0); Monocytes % (A) 7 %; Neutrophils # (A) 3.6 k/uL (1.3-7.7); Neutrophils % (A) 65 %; Platelet Count 328 k/uL (150-450); RDW 13.8 % (11.5-15.5); WBC 5.5 k/uL (3.8-10.6)
[2017-11-15] MEDS: SYMBICORT 160-4.5 MCG INHALER INHALATION SCH ×2 (08:46→20:27)
[2017-11-15] MEDS: IPRATROPIUM-ALBUTEROL 3 ML NEB INHALATION SCH ×4 (08:46→20:27)
[2017-11-15 08:53] LABS: Anion Gap 8 mmol/L; Blood Urea Nitrogen 10 mg/dL (7-17); Calcium 8.8 mg/dL (8.4-10.2); Carbon Dioxide 30 mmol/L (22-30); Chloride 103 mmol/L (98-107); Glucose 86 mg/dL (74-99); Potassium 4.3 mmol/L (3.5-5.1); Sodium 141 mmol/L (137-145)
[2017-11-15] MEDS: NON-FORMULARY DRUG (Mirabegron [Myrbetriq] 50 MG) PO SCH (08:55)
[2017-11-15] MEDS: HEPARIN SODIUM,PORCINE 5,000 UNIT/ML 1 ML VIAL SQ SCH ×3 (08:56→22:08)
[2017-11-15] MEDS: FERROUS SULFATE 325 MG TAB PO SCH ×2 (08:56→16:01)
[2017-11-15] MEDS: ASPIRIN 81 MG PO SCH (08:57)
[2017-11-15] MEDS: ALVIMOPAN 12 MG CAPSULE PO SCH ×2 (08:57→22:09)
[2017-11-15] MEDS: LIDOCAINE 5% PATCH TOPICAL SCH (08:58)
[2017-11-15] MEDS: HYDROCHLOROTHIAZIDE 12.5 MG CAP PO SCH (08:58)
[2017-11-15] MEDS: SERTRALINE 100 MG TAB PO SCH (09:00)
[2017-11-15] MEDS: VALSARTAN 160 MG TAB PO SCH (09:00)
[2017-11-15] MEDS: HYDROcodone/APAP 5-325MG 1 EACH TAB PO PRN ×2 (09:00→19:19)
[2017-11-15] MEDS ORDERED: METOCLOPRAMIDE 5 MG TAB PO PRN (09:06)
[2017-11-15] MEDS ORDERED: ONDANSETRON 4 MG TAB PO PRN (09:07)
--- NOTE | 2017-11-15 09:28 | P.PN ---
Subjective Progress Note Date: 11/15/17 77-year-old female seen at the bedside sitting up on the edge of the bed taking a diet tolerating no reports of nausea vomiting stating pain medication effective for pain control able to use the incentive spirometer achieving 1500 noted no shortness of breath abdominal binder in place surgical dressing sites dry. [place] in place to laparoscopic sites passing gas no stool Laparoscopic da Morteza assisted right colectomy with intracorporeal anastomosis done on November 12 Objective - Vital Signs Vital signs: Vital Signs Temp 97.9 F 11/15/17 08:08 Pulse 97 11/15/17 08:08 Resp 20 11/15/17 08:08 BP 108/69 11/15/17 08:08 Pulse Ox 97 11/14/17 23:00 Intake & Output 11/14/17 11/15/17 11/15/17 18:59 06:59 18:59 Intake Total 100 1190 Balance 100 1190 Intake: Intake, IV Titration 100 Amount D5-0.45% NaCl with KCl 100 20Meq/l 1,000 ml @ 125 mls/hr IV .Q8H [facility] Rx#: [id number] Oral 1190 Other: Voiding Method Toilet Toilet # Voids 1 4 - Exam Physical exam Pleasant 77-year-old female sitting up on the edge of the bed appears in no acute distress talkative Lungs adequate air movement bilaterally no cough noted nasal cannula at 2 L Heart S1-S2 audible regular denying chest pain Abdomen obese soft nondistended bowel tones present passing gas no nausea no vomiting abdominal binder removed surgical incision sites inspected well approximated isacc in place to laparoscopic sites urinating no difficulty Extremities no edema noted - Labs CBC & Chem 7: 11/15/17 08:04 11/15/17 08:04 Labs: Abnormal Lab Results - Last 24 Hours (Table) 11/15/17 Range/Units 08:04 RBC 3.60 L (3.80-5.40) m/uL Hgb 10.3 L (11.4-16.0) gm/dL Hct 32.1 L (34.0-46.0) % Assessment and Plan Assessment: Impression Postop November 12 laparoscopic da Morteza assisted right colectomy with intracorporeal anastomosis for right sided colon cancer Severe COPD severe COPD at baseline with an FEV1 of 56% of predicted at baseline chronic hypoxic respiratory failure maintained on oxygen at 2 L/m nasal cannula hypertension hyperlipidemia obesity with a current BMI of 45.3 iron deficiency anemia related to a occult GI bleed/cecal mass Plan Continue postop surgical care Encourage ambulation Pain control DVT and GI prophylaxis Home meds as appropriate Progress note dictated for Dr. hare rounding on behalf of Dr. Rivera
[2017-11-15] MEDS: FAMOTIDINE 20 MG/2 ML VIAL IV SCH (15:23)
--- NOTE | 2017-11-15 16:22 | P.PN ---
Subjective Progress Note Date: 11/15/17 Principal diagnosis: Colon cancer status post right hemicolectomy, robotic-assisted, postop day 2 A 77-year-old female patient is a very well-known to me due to advanced COPD, chronic hypoxic respiratory failure and I was asked to follow up this patient and evaluate her pulmonary status following her abdominal surgery. The patient was having iron loss anemia and she was further found to have a right colonic mass. The patient was taken to the operating room today and the patient underwent a Laparoscopic da Morteza assisted right colectomy with intracorporeal anastomosis. Estimated blood loss was minimal. I had a chance to evaluate this patient preoperatively for a preoperative pulmonary clearance. She has chronic hypoxic respiratory failure due to advanced COPD. She is on oxygen at all times and her baseline FEV1 based on a spirometer that was done back in 2015 is in the order of 40-41%. on today's evaluation her FEV1 is up to 56% of predicted at baseline. The patient has limitation exercise capacity secondary to COPD. She is able to perform activities of daily today life however she gets short of breath with mild to moderate activity and she is having hard time difficulties climbing a flight of stairs. No cough. No sputum production pedal chest pain. No signs of any recent COPD exacerbation. She is on a combination of Brovana and Pulmicort neb last treatment twice a day and albuterol solution twice a day. No swelling in lower extremities. No signs of any acute heart failure at this point. The patient has adequate pain control. She is under a lot of 0.5 mg on estimated basis. She is on Zofran. Hemodynamically stable. Awake and alert. No no breathing difficulties for now. She is pulse oxing 95% 2 L of oxygen by nasal cannula. On 11/14/2079 I'm seeing this patient for a follow-up. The patient is doing well. She is recovering nicely from abdominal surgery. She patient underwent a robotic colectomy and the patient is postop day #1. The patient is looking better and the patient has no pain issues. No respiratory difficulties. No cough sputum production chest tightness or wheezing. She is hemodynamically stable at this point. No other new complaints for now pH is using incentive spirometer. Pulse oxing 95% on 2 L. She is on DuoNeb neb last treatment around -the-clock. On 11/14/2017 patient seen in follow-up on oncology floor. She denies acute dyspnea, she is compliant with her incentive spirometry, she is able to achieve 2000 on it today. Lung sounds are positive for faint end expiratory wheezing, no rhonchi, no rales noted. She is currently on 2 L per nasal cannula with O2 sat at 98%. She remains afebrile, vital signs are stable. Pain is controlled. Her laparoscopic incisions clean dry and intact, well approximated. Mariya are intact. Patient did have a small bowel movement this morning, she is tolerating her diet. No nausea, no vomiting. On 11/15/2017 patient seen and examined. She denies any acute distress. Currently 2 L per nasal cannula with O2 sat 96%. Compliant with her senna spirometer, able to achieve 2000 on it today. Lung sounds are positive for scattered expiratory wheezes, at times patient has a congested nonproductive cough, but denies any significant chest congestion. She has been ambulating, in tolerating activity well. She is tolerating regular diet, she is having bowel movements. Laparoscopic abdominal incisions clean dry and intact, mariya are intact. Denies any nausea, no vomiting. Objective - Vital Signs Vital signs: Vital Signs Temp 98.2 F 11/15/17 15:00 Pulse 94 11/15/17 15:00 Resp 18 11/15/17 15:00 BP 96/64 11/15/17 15:00 Pulse Ox 96 11/15/17 15:00 Intake & Output 11/14/17 11/15/17 11/15/17 18:59 06:59 18:59 Intake Total 100 1190 Balance 100 1190 Intake: Intake, IV Titration 100 Amount D5-0.45% NaCl with KCl 100 20Meq/l 1,000 ml @ 125 mls/hr IV .Q8H DESHAWN Rx#: [id number] Oral 1190 Other: Voiding Method Toilet Toilet Toilet # Voids 1 4 4 - Exam General Appearance no diaphoresis, no respiratory distress, speech not interrupted by breaths, no dyspnea, no pallor, not cachectic, well nourished, appears well, obesity HEENT no pursed lip breathing, no jugular venous distention, no mucous membrane cyanosis, no perioral cyanosis, mallampati classification: class 1, Mallampati Classification: Class 3 Chest no barrel chest, no retractions, no sternocleidomastoid muscle contractions, no supraclavicular retractions, no intercostal retractions, no prolonged wheezing, no decreased air movement, a few rhonchi, no hyperinflation , decreased air movement. A few scattered wheezes Heart no right ventricular heave, no distant heart sounds, no s3 gallop GI bowel sounds: hyperactive (borborygmi), bowel sounds: diminished or absent. Abdominal wound is dry clean and intact at this point. No significant tenderness or rebound tensile guarding. Extremities no cyanosis, no clubbing, no edema Neurologic no decreased mental status, no somnolence, no confusion Examination of the skin revealed no evidence of significant rashes, suspicious appearing nevi or other concerning lesions. Skeletal examination shows no deformities or fractures Psychiatric history shows no anxiety or depression and the mode is appropriate. - Labs CBC & Chem 7: 11/15/17 08:04 11/15/17 08:04 Labs: Abnormal Lab Results - Last 24 Hours (Table) 11/15/17 Range/Units 08:04 RBC 3.60 L (3.80-5.40) m/uL Hgb 10.3 L (11.4-16.0) gm/dL Hct 32.1 L (34.0-46.0) % Assessment and Plan Plan: Assessment: 1 colon cancer status post right hemicolectomy, robotic-assisted, patient is postop day #3 2 severe COPD at baseline with an FEV1 of 56% of predicted at baseline 3 chronic hypoxic respiratory failure maintained on oxygen at 2 L/m nasal cannula 4 hypertension 5 hyperlipidemia 6 obesity with a current BMI of 45.3 7 iron deficiency anemia related to a occult GI bleed/cecal mass Plan Patient remains stable from pulmonary standpoint, continue nebulized treatments , Symbicort, incentive spirometry, encourage ambulation. Vital signs are stable , patient is afebrile. Patient is anticipated to be discharged home on Sunday I performed a history & physical examination of the patient and discussed their management with my nurse practitioner, Cassie Pizano. I reviewed the nurse practitioner's note and agree with the documented findings and plan of care. Lung sounds are positive for a few faint expiratory wheezes. The findings and the impression was discussed with the patient. I attest to the documentation by the nurse practitioner. Time with Patient: Less than 30
[2017-11-15] MEDS: FAMOTIDINE 20 MG TAB PO SCH (22:08)
[2017-11-15] MEDS: MONTELUKAST 10 MG TAB PO SCH (22:09)
[2017-11-15] MEDS: ATORVASTATIN 10 MG TAB PO SCH (22:09)
[2017-11-16] MEDS: HYDROcodone/APAP 5-325MG 1 EACH TAB PO PRN ×3 (00:40→23:41)
--- NOTE | 2017-11-16 06:42 | PN ---
PROGRESS NOTE DATE OF SERVICE: 11/15/2017 PRESENTING COMPLAINT: Abdominal surgery. INTERVAL HISTORY: Patient is status post right colectomy. Continues to improve. Had gone to a soft diet. Did have another small bowel movement. Walking better. No new issues. REVIEW OF SYSTEMS: Review of systems done for constitutional, cardiovascular, GI, pulmonary; relevants findings as above. MEDICATIONS: Current medications are reviewed. PHYSICAL EXAMINATION: On examination, temperature 97.9, pulse 87, respiration 20, blood pressure 108/69, pulse ox noted. GENERAL APPEARANCE: Sitting up, more comfortable. EYES: Pupils equal. Conjunctivae normal. HENT: External appearance of the nose and ears normal. Oral cavity normal. NECK: JVD not raised. Mass not palpable. RESPIRATORY: Effort LUNGS: Decreased breath sounds. CARDIOVASCULAR: First and second sounds normal. No edema. ABDOMEN: Soft, minimal tenderness. Bowel sounds are present. PSYCHIATRY: Alert and oriented x3. Mood and affect normal. INVESTIGATIONS: White count 5.5, hemoglobin 10.3. ASSESSMENT: 1. Right colectomy with end-to-end anastomosis. 2. Morbid obesity, body mass index 45.3. 3. Chronic obstructive pulmonary disease in an ex-smoker. 4. Essential hypertension. 5. Hyperlipidemia. 6. Chronic hypoxic respiratory failure on 2 L oxygen at home secondary to chronic obstructive pulmonary disease. 7. Depression, not otherwise specified. 8. Chronic urinary stress incontinence. PLAN: Continue current medication and treatment plan. The patient's pathology came back as showing right colon adenocarcinoma, well-differentiated, invasive. MMODL / IJN: [id number] /
[2017-11-16] MEDS: ASPIRIN 81 MG PO SCH (08:27)
[2017-11-16] MEDS: ALVIMOPAN 12 MG CAPSULE PO SCH ×2 (08:27→20:25)
[2017-11-16] MEDS: FERROUS SULFATE 325 MG TAB PO SCH ×2 (08:27→17:08)
[2017-11-16] MEDS: HEPARIN SODIUM,PORCINE 5,000 UNIT/ML 1 ML VIAL SQ SCH ×3 (08:27→23:36)
[2017-11-16] MEDS: LIDOCAINE 5% PATCH TOPICAL SCH (08:28)
[2017-11-16] MEDS: SERTRALINE 100 MG TAB PO SCH (08:28)
[2017-11-16] MEDS: HYDROCHLOROTHIAZIDE 12.5 MG CAP PO SCH (08:28)
[2017-11-16] MEDS: VALSARTAN 160 MG TAB PO SCH (08:28)
[2017-11-16] MEDS: IPRATROPIUM-ALBUTEROL 3 ML NEB INHALATION SCH ×4 (08:42→19:24)
[2017-11-16] MEDS: SYMBICORT 160-4.5 MCG INHALER INHALATION SCH ×2 (08:42→19:24)
[2017-11-16] MEDS: NON-FORMULARY DRUG (Mirabegron [Myrbetriq] 50 MG) PO SCH (08:59)
--- NOTE | 2017-11-16 12:51 | P.PN ---
Subjective Progress Note Date: 11/16/17 77-year-old female sitting up on the edge of the bed receiving a respiratory treatment. Patient states that she has had several loose stools incontinent. Nursing states that the patient has had one bowel movement large amount this morning. Tolerating a diet. No labs this morning. Afebrile Abdominal binder in place surgical dressing site dry skin isacc to surgical incision site intact no redness at site Laparoscopic da Morteza assisted right colectomy with intracorporeal anastomosis done on November 12 Objective - Vital Signs Vital signs: Vital Signs Temp 97.8 F 11/16/17 07:11 Pulse 78 11/16/17 12:12 Resp 18 11/16/17 11:09 BP 103/54 11/16/17 07:11 Pulse Ox 99 11/15/17 21:14 Intake & Output 11/15/17 11/16/17 11/16/17 18:59 06:59 18:59 Weight 105.233 kg Other: Voiding Method Toilet Toilet Toilet # Voids 4 1 # Bowel Movements 1 - Exam Physical exam 77-year-old female sitting up on the edge of the bed receiving a respiratory treatment pleasant talkative oriented 3 Lungs posterior diminished at the bases otherwise adequate air movement no cough on 2 L nasal cannula Heart S1 S2 audible regular denying chest pain no murmur Abdomen obese soft abdominal binder in place isacc to surgical incision sites dry well approximated no redness states had several loose stools this morning one episode incontinent stool no blood noted states tolerating a diet no nausea no vomiting nondistended Extremities no edema noted. - Labs CBC & Chem 7: 11/15/17 08:04 11/15/17 08:04 Assessment and Plan Assessment: Impression Postop November 12 laparoscopic da Morteza assisted right colectomy with intracorporeal anastomosis for right sided colon cancer Severe COPD severe COPD at baseline with an FEV1 of 56% of predicted at baseline chronic hypoxic respiratory failure maintained on oxygen at 2 L/m nasal cannula hypertension hyperlipidemia obesity with a current BMI of 45.3 iron deficiency anemia related to a occult GI bleed/cecal mass Plan At the time of discharge home care has been set up Send stool for C. diff if indicated Continue postop surgical care Encourage ambulation Pain control DVT and GI prophylaxis Home meds as appropriate Progress note dictated for Dr. payam shahid on behalf of Dr. Rivera The above impression and plan of care have been discussed and directed by signing physician. Shandra Vega nurse practitioner acting as scribe for signing physician.
--- NOTE | 2017-11-16 16:03 | P.PN ---
Subjective Progress Note Date: 11/16/17 Principal diagnosis: Colon cancer status post right hemicolectomy, robotic-assisted, postop day 2 A 77-year-old female patient is a very well-known to me due to advanced COPD, chronic hypoxic respiratory failure and I was asked to follow up this patient and evaluate her pulmonary status following her abdominal surgery. The patient was having iron loss anemia and she was further found to have a right colonic mass. The patient was taken to the operating room today and the patient underwent a Laparoscopic da Morteza assisted right colectomy with intracorporeal anastomosis. Estimated blood loss was minimal. I had a chance to evaluate this patient preoperatively for a preoperative pulmonary clearance. She has chronic hypoxic respiratory failure due to advanced COPD. She is on oxygen at all times and her baseline FEV1 based on a spirometer that was done back in 2015 is in the order of 40-41%. on today's evaluation her FEV1 is up to 56% of predicted at baseline. The patient has limitation exercise capacity secondary to COPD. She is able to perform activities of daily today life however she gets short of breath with mild to moderate activity and she is having hard time difficulties climbing a flight of stairs. No cough. No sputum production pedal chest pain. No signs of any recent COPD exacerbation. She is on a combination of Brovana and Pulmicort neb last treatment twice a day and albuterol solution twice a day. No swelling in lower extremities. No signs of any acute heart failure at this point. The patient has adequate pain control. She is under a lot of 0.5 mg on estimated basis. She is on Zofran. Hemodynamically stable. Awake and alert. No no breathing difficulties for now. She is pulse oxing 95% 2 L of oxygen by nasal cannula. On 11/14/2079 I'm seeing this patient for a follow-up. The patient is doing well. She is recovering nicely from abdominal surgery. She patient underwent a robotic colectomy and the patient is postop day #1. The patient is looking better and the patient has no pain issues. No respiratory difficulties. No cough sputum production chest tightness or wheezing. She is hemodynamically stable at this point. No other new complaints for now pH is using incentive spirometer. Pulse oxing 95% on 2 L. She is on DuoNeb neb last treatment around -the-clock. On 11/14/2017 patient seen in follow-up on oncology floor. She denies acute dyspnea, she is compliant with her incentive spirometry, she is able to achieve 2000 on it today. Lung sounds are positive for faint end expiratory wheezing, no rhonchi, no rales noted. She is currently on 2 L per nasal cannula with O2 sat at 98%. She remains afebrile, vital signs are stable. Pain is controlled. Her laparoscopic incisions clean dry and intact, well approximated. Isacc are intact. Patient did have a small bowel movement this morning, she is tolerating her diet. No nausea, no vomiting. On 11/15/2017 patient seen and examined. She denies any acute distress. Currently 2 L per nasal cannula with O2 sat 96%. Compliant with her senna spirometer, able to achieve 2000 on it today. Lung sounds are positive for scattered expiratory wheezes, at times patient has a congested nonproductive cough, but denies any significant chest congestion. She has been ambulating, in tolerating activity well. She is tolerating regular diet, she is having bowel movements. Laparoscopic abdominal incisions clean dry and intact, isacc are intact. Denies any nausea, no vomiting. 11/16/2017 patient seen in follow-up. Denies any acute distress, she has been achieving 2000 on her incentive spirometry, lung sounds are clear to auscultation, no dyspnea, chest congestion or chest pain. She is tolerating regular diet, no abdominal pain, she is passing flatus, and having bowel movements. Abdominal surgical incisions are dry and intact, isacc are intact. No acute events overnight, patient is anticipated to be discharged home tomorrow provided she remains stable. Objective - Vital Signs Vital signs: Vital Signs Temp 97.8 F 11/16/17 07:11 Pulse 78 11/16/17 12:12 Resp 18 11/16/17 11:09 BP 103/54 11/16/17 07:11 Pulse Ox 99 11/15/17 21:14 Intake & Output 11/15/17 11/16/17 11/16/17 18:59 06:59 18:59 Weight 105.233 kg Other: Voiding Method Toilet Toilet Toilet # Voids 4 1 # Bowel Movements 1 - Exam General Appearance no diaphoresis, no respiratory distress, speech not interrupted by breaths, no dyspnea, no pallor, not cachectic, well nourished, appears well, obesity HEENT no pursed lip breathing, no jugular venous distention, no mucous membrane cyanosis, no perioral cyanosis, mallampati classification: class 1, Mallampati Classification: Class 3 Chest no barrel chest, no retractions, no sternocleidomastoid muscle contractions, no supraclavicular retractions, no intercostal retractions, no prolonged wheezing, no decreased air movement, a few rhonchi, no hyperinflation , decreased air movement. Heart no right ventricular heave, no distant heart sounds, no s3 gallop GI bowel sounds: hyperactive (borborygmi), bowel sounds: diminished or absent. Abdominal wound is dry clean and intact at this point. No significant tenderness or rebound tensile guarding. Extremities no cyanosis, no clubbing, no edema Neurologic no decreased mental status, no somnolence, no confusion Examination of the skin revealed no evidence of significant rashes, suspicious appearing nevi or other concerning lesions. Skeletal examination shows no deformities or fractures Psychiatric history shows no anxiety or depression and the mode is appropriate. - Labs CBC & Chem 7: 11/15/17 08:04 11/15/17 08:04 Assessment and Plan Plan: Assessment: 1 colon cancer status post right hemicolectomy, robotic-assisted, patient is postop day #4 2 severe COPD at baseline with an FEV1 of 56% of predicted at baseline 3 chronic hypoxic respiratory failure maintained on oxygen at 2 L/m nasal cannula 4 hypertension 5 hyperlipidemia 6 obesity with a current BMI of 45.3 7 iron deficiency anemia related to a occult GI bleed/cecal mass Plan Continue encouraging activity, continue incentive spirometry, continue bronchodilators and nebulized treatments. Patient remains stable from pulmonary standpoint, no acute events overnight, vital signs are stable. Anticipate discharge home tomorrow I performed a history & physical examination of the patient and discussed their management with my nurse practitioner, Cassie Pizano. I reviewed the nurse practitioner's note and agree with the documented findings and plan of care. Lung sounds are positive for a few faint expiratory wheezes. The findings and the impression was discussed with the patient. I attest to the documentation by the nurse practitioner. Time with Patient: Less than 30
--- NOTE | 2017-11-16 18:33 | PN ---
PROGRESS NOTE DATE OF SERVICE: 11/16/2017 PRESENTING COMPLAINT: Abdominal surgery. INTERVAL HISTORY: Patient is status post right colectomy. Tolerating a diet, having bowel movements. Pain is much better controlled. Has been out of bed. REVIEW OF SYSTEMS: Done for constitutional, cardiovascular, GI, pulmonary; relevant findings as above. CURRENT MEDICATIONS: Reviewed. PHYSICAL EXAMINATION: Afebrile. Pulse 79, respiration 18, blood pressure 103/54, pulse ox 99% on 2 L. GENERAL APPEARANCE: Sitting up, comfortable. EYES: Pupils equal. Conjunctivae normal. HEENT: External appearance of nose and ears normal. Oral cavity normal. NECK: JVD not raised. Mass not palpable. RESPIRATORY: Effort normal. LUNGS: Decreased breath sounds. CARDIOVASCULAR: First and second sounds normal. Non-pitting edema. ABDOMEN: Soft, nontender. Liver and spleen not palpable. PSYCHIATRY: Alert and oriented x3. Mood and affect normal. INVESTIGATIONS: No blood work from today. ASSESSMENT: 1. Right colectomy with end-to-end anastomosis with pathology showing adenocarcinoma, well differentiated, invasive. 2. Morbid obesity, body mass index 45.3. 3. Chronic obstructive pulmonary disease in an ex-smoker. 4. Essential hypertension. 5. Hyperlipidemia. 6. Chronic hypoxic respiratory failure, on 2 L oxygen at home, secondary to chronic obstructive pulmonary disease. 7. Depression not otherwise specified. 8. Chronic urinary stress incontinence. PLAN: Patient from my standpoint is doing well and can be discharged any time. Care was discussed with the patient. MMMIKEL / FRANTZN: [id number] /
[2017-11-16] MEDS: FAMOTIDINE 20 MG TAB PO SCH (20:25)
[2017-11-16] MEDS: ATORVASTATIN 10 MG TAB PO SCH (20:25)
[2017-11-16] MEDS: MONTELUKAST 10 MG TAB PO SCH (20:25)
[2017-11-17 07:03] LABS: Basophils % (A) 1 %; Eosinophils # (A) 0.4 k/uL (0-0.7); Eosinophils % (A) 7 %; HCT 31.5 % (34.0-46.0); HGB 10.2 gm/dL (11.4-16.0); Lymphocytes # (A) 1.3 k/uL (1.0-4.8); Lymphocytes % (A) 21 %; MCH 28.7 pg (25.0-35.0); MCHC 32.4 g/dL (31.0-37.0); MCV 88.7 fL (80.0-100.0); Mean Platelet Volume 7.1; Monocytes # (A) 0.4 k/uL (0-1.0); Monocytes % (A) 7 %; Neutrophils # (A) 3.7 k/uL (1.3-7.7); Neutrophils % (A) 61 %; Platelet Count 333 k/uL (150-450); RBC 3.55 m/uL (3.80-5.40); RDW 13.7 % (11.5-15.5); WBC 6.1 k/uL (3.8-10.6)
[2017-11-17 07:18] LABS: ALT 39 U/L (9-52); AST 44 U/L (14-36); Albumin 3.1 g/dL (3.5-5.0); Alkaline Phosphatase 55 U/L (38-126); Anion Gap 7 mmol/L; Blood Urea Nitrogen 15 mg/dL (7-17); Calcium 8.7 mg/dL (8.4-10.2); Carbon Dioxide 33 mmol/L (22-30); Chloride 100 mmol/L (98-107); Glucose 83 mg/dL (74-99); Potassium 4.4 mmol/L (3.5-5.1); Sodium 140 mmol/L (137-145); Total Bilirubin 0.4 mg/dL (0.2-1.3); Total Protein 5.4 g/dL (6.3-8.2)
[2017-11-17] MEDS: NON-FORMULARY DRUG (Mirabegron [Myrbetriq] 50 MG) PO SCH (08:25)
[2017-11-17] MEDS: VALSARTAN 160 MG TAB PO SCH (08:25)
[2017-11-17] MEDS: FERROUS SULFATE 325 MG TAB PO SCH (08:26)
[2017-11-17] MEDS: HEPARIN SODIUM,PORCINE 5,000 UNIT/ML 1 ML VIAL SQ SCH (08:26)
[2017-11-17] MEDS: SERTRALINE 100 MG TAB PO SCH (08:26)
[2017-11-17] MEDS: LIDOCAINE 5% PATCH TOPICAL SCH (08:26)
[2017-11-17] MEDS: HYDROCHLOROTHIAZIDE 12.5 MG CAP PO SCH (08:26)
[2017-11-17] MEDS: ALVIMOPAN 12 MG CAPSULE PO SCH (08:26)
[2017-11-17] MEDS: ASPIRIN 81 MG PO SCH (08:27)
[2017-11-17] MEDS: IPRATROPIUM-ALBUTEROL 3 ML NEB INHALATION SCH ×3 (09:01→15:03)
[2017-11-17] MEDS: SYMBICORT 160-4.5 MCG INHALER INHALATION SCH (09:01)
--- NOTE | 2017-11-17 13:11 | P.PN ---
Subjective Progress Note Date: 11/17/17 Principal diagnosis: A 77-year-old female patient is a very well-known to me due to advanced COPD, chronic hypoxic respiratory failure and I was asked to follow up this patient and evaluate her pulmonary status following her abdominal surgery. The patient was having iron loss anemia and she was further found to have a right colonic mass. The patient was taken to the operating room today and the patient underwent a Laparoscopic [place] assisted right colectomy with intracorporeal anastomosis. Estimated blood loss was minimal. I had a chance to evaluate this patient preoperatively for a preoperative pulmonary clearance. She has chronic hypoxic respiratory failure due to advanced COPD. She is on oxygen at all times and her baseline FEV1 based on a spirometer that was done back in 2015 is in the order of 40-41%. on today's evaluation her FEV1 is up to 56% of predicted at baseline. The patient has limitation exercise capacity secondary to COPD. She is able to perform activities of daily today life however she gets short of breath with mild to moderate activity and she is having hard time difficulties climbing a flight of stairs. No cough. No sputum production pedal chest pain. No signs of any recent COPD exacerbation. She is on a combination of Brovana and Pulmicort neb last treatment twice a day and albuterol solution twice a day. No swelling in lower extremities. No signs of any acute heart failure at this point. The patient has adequate pain control. She is under a lot of 0.5 mg on estimated basis. She is on Zofran. Hemodynamically stable. Awake and alert. No no breathing difficulties for now. She is pulse oxing 95% 2 L of oxygen by nasal cannula. On 11/14/2079 I'm seeing this patient for a follow-up. The patient is doing well. She is recovering nicely from abdominal surgery. She patient underwent a robotic colectomy and the patient is postop day #1. The patient is looking better and the patient has no pain issues. No respiratory difficulties. No cough sputum production chest tightness or wheezing. She is hemodynamically stable at this point. No other new complaints for now pH is using incentive spirometer. Pulse oxing 95% on 2 L. She is on DuoNeb neb last treatment around -the-clock. On 11/14/2017 patient seen in follow-up on oncology floor. She denies acute dyspnea, she is compliant with her incentive spirometry, she is able to achieve 2000 on it today. Lung sounds are positive for faint end expiratory wheezing, no rhonchi, no rales noted. She is currently on 2 L per nasal cannula with O2 sat at 98%. She remains afebrile, vital signs are stable. Pain is controlled. Her laparoscopic incisions clean dry and intact, well approximated. [place] are intact. Patient did have a small bowel movement this morning, she is tolerating her diet. No nausea, no vomiting. On 11/15/2017 patient seen and examined. She denies any acute distress. Currently 2 L per nasal cannula with O2 sat 96%. Compliant with her senna spirometer, able to achieve 2000 on it today. Lung sounds are positive for scattered expiratory wheezes, at times patient has a congested nonproductive cough, but denies any significant chest congestion. She has been ambulating, in tolerating activity well. She is tolerating regular diet, she is having bowel movements. Laparoscopic abdominal incisions clean dry and intact, isacc are intact. Denies any nausea, no vomiting. 11/16/2017 patient seen in follow-up. Denies any acute distress, she has been achieving 2000 on her incentive spirometry, lung sounds are clear to auscultation, no dyspnea, chest congestion or chest pain. She is tolerating regular diet, no abdominal pain, she is passing flatus, and having bowel movements. Abdominal surgical incisions are dry and intact, isacc are intact. No acute events overnight, patient is anticipated to be discharged home tomorrow provided she remains stable. The patient is seen again today 11/17/2017 in follow-up on the oncology unit. She is currently awake and alert in no acute distress. Sitting up at the bedside. She denies any shortness of breath, cough or congestion. She's very well of the incentive spirometer. Maintaining good O2 saturations in the 90s and 0.5 L/m per nasal cannula. She did have a bowel movement this morning. White count 6.1. Hemoglobin 10.2. Creatinine 0.71. She is hoping to go home today. Objective - Vital Signs Vital signs: Vital Signs Temp 97.6 F 11/17/17 07:00 Pulse 88 11/17/17 12:33 Resp 18 11/17/17 07:00 BP 147/66 11/17/17 07:00 Pulse Ox 96 11/17/17 07:00 Intake & Output 11/16/17 11/17/17 11/17/17 18:59 06:59 18:59 Weight 105.233 kg Other: Voiding Method Toilet Toilet Toilet # Voids 1 # Bowel Movements 1 - Exam General Appearance no diaphoresis, no respiratory distress, speech not interrupted by breaths, no dyspnea, no pallor, not cachectic, well nourished, appears well, obesity HEENT no pursed lip breathing, no jugular venous distention, no mucous membrane cyanosis, no perioral cyanosis, Chest no barrel chest, no retractions, no sternocleidomastoid muscle contractions, no supraclavicular retractions, no intercostal retractions, no prolonged wheezing, no decreased air movement, a few rhonchi, no hyperinflation , decreased air movement. Heart no right ventricular heave, no distant heart sounds, no s3 gallop GI bowel sounds: bowel sounds: diminished or absent. Abdominal wound is dry clean and intact at this point. No significant tenderness or rebound tensile guarding. Extremities no cyanosis, no clubbing, no edema Neurologic no decreased mental status, no somnolence, no confusion Examination of the skin revealed no evidence of significant rashes, suspicious appearing nevi or other concerning lesions. Skeletal examination shows no deformities or fractures Psychiatric history shows no anxiety or depression and the mode is appropriate. - Labs CBC & Chem 7: 11/17/17 06:38 11/17/17 06:38 Labs: Abnormal Lab Results - Last 24 Hours (Table) 11/17/17 11/17/17 Range/Units 06:38 06:38 RBC 3.55 L (3.80-5.40) m/uL Hgb 10.2 L (11.4-16.0) gm/dL Hct 31.5 L (34.0-46.0) % Carbon Dioxide 33 H (22-30) mmol/L AST 44 H (14-36) U/L Total Protein 5.4 L (6.3-8.2) g/dL Albumin 3.1 L (3.5-5.0) g/dL Assessment and Plan Assessment: Assessment: 1 colon cancer status post right hemicolectomy, robotic-assisted, patient is postop day #5 2 severe COPD at baseline with an FEV1 of 56% of predicted at baseline 3 chronic hypoxic respiratory failure maintained on oxygen at 2 L/m nasal cannula 4 hypertension 5 hyperlipidemia 6 obesity with a current BMI of 45.3 7 iron deficiency anemia related to a occult GI bleed/cecal mass Plan The patient was seen and evaluated by Dr. Mcguire. She is stable from the pulmonary standpoint. She is cleared for discharge once cleared by surgical services. She'll follow-up in our office in 1-2 weeks' time. She is however encouraged to call sooner with any symptoms or any other questions or concerns. I, the cosigning physician, performed a history & physical examination of the patient. Lungs sounds are clear. Maintaining good O2 saturations in the 90s on 2.5 L/m per nasal cannula. I discussed the assessment and plan of care with my nurse practitioner, Clarice Rojas. I attest to the above note as dictated by her.
--- NOTE | 2017-11-17 14:21 | P.PN ---
Progress Note - Text Progress Note Date: 11/17/17 Doing well. No issues today. No pain. Plan for discharge today.
[2017-11-17 15:06] VITALS: RESP 16
[2017-11-17 15:23] VITALS: BP 120/57; PULSE 95; TEMP 97.8
--- NOTE | 2017-11-17 16:59 | PN ---
PROGRESS NOTE DATE OF SERVICE: 11/17/17. PRESENT COMPLAINT: Abdominal surgery. INTERVAL HISTORY: Patient is status post right colectomy, having bowel movements. Tolerating a diet, feeling well. Breathing is stable. Has oxygen at home. Pain is controlled. REVIEW OF SYSTEMS: Done for constitutional, cardiovascular, GI, pulmonary; relevant findings as above. CURRENT MEDICATIONS: Reviewed. EXAMINATION: Temperature 97.8, pulse 95, respiratory 18, blood pressure 120/57, pulse ox 96% on 2 L. GENERAL APPEARANCE: Sitting at the edge of the bed, comfortable. EYES: Pupils equal. Conjunctivae normal. HEENT: External nose and ears normal. Oral cavity normal. NECK: JVD not raised. Mass not palpable. RESPIRATORY: Effort normal. Lungs decreased breath sounds. CARDIOVASCULAR: First and second sounds normal. Nonpitting edema. ABDOMEN: Soft, nontender. Liver and spleen not palpable. PSYCHIATRY: Alert and oriented x3. Mood and affect normal. INVESTIGATION: White count 6.1, potassium 4.4. ASSESSMENT: 1. Right colectomy with end-to-end anastomosis with pathology showing adenocarcinoma, well differentiated, invasive. 2. Morbid obesity, BMI 45.3. 3. Chronic obstructive pulmonary disease. 4. Smoker. 5. Essential hypertension. 6. Hyperlipidemia. 7. Chronic hypoxic respiratory failure on 2 L oxygen at home secondary to chronic obstructive pulmonary disease. 8. Depression, not otherwise specified. 9. Chronic urinary stress incontinence. PLAN: The patient is stable. Continue medication and treatment plan. Care was discussed with the patient. MMODL / FRANTZN: [id number] /
--- NOTE | 2017-11-17 19:03 | P.DS ---
Providers Date of admission: 11/12/17 07:51 Expected date of discharge: 11/17/17 Attending physician: Juan Pablo Rivera Consults: 11/12/17 16:01 Consult Physician Routine Consulting Provider: Misael Mcguire Consult Reason/Comments: COPD Do you want consulting provider notified?: Yes Primary care physician: Elli Inman Dejuan - Discharge Diagnosis(es) (1) S/P right hemicolectomy Status: Acute (2) COPD (chronic obstructive pulmonary disease) Status: Acute (3) Colon cancer Status: Acute Hospital Course: The patient is a 77-year-old female diagnosed with colon cancer who had a robotic-assisted right hemicolectomy. Post procedure she was doing well. She was tolerating diet. Pain was controlled. Prior to discharge she was stable. GENERAL: Well developed and in no acute distress. Pleasant. HEENT: No sclera icterus. Extraocular movements grossly intact. Moist buccal mucosa. Head is atraumatic, normocephalic. Hears conversational speech. No nasal drainage. NECK: Supple without lymphadenopathy. CHEST: Non-labored respirations and equal bilateral excursions. CARDIOVASCULAR: Regular rate and rhythm. Palpable 2+ radial pulses. ABDOMEN: Soft, nontender. Nondistended. All incisions clean dry and intact with isacc. No signs of infection. Maculopapular rash underneath the breast. MUSCULOSKELETAL: No clubbing, cyanosis or edema. NEUROLOGIC: No focal or lateralizing signs. PSYCH: Appropriate affect. Alert and oriented to person, place and time. SKIN: Good skin turgor. Procedures: Robotic right hemicolectomy by Dr. Rivera Patient Condition at Discharge: Stable Plan - Discharge Summary Discharge Rx Participant: Yes New Discharge Prescriptions: No Action Ferrous Sulfate [Feosol] 325 mg PO BID Amoxicillin 875 mg PO Q12HR Valsartan/Hydrochlorothiazide [Valsartan-Hctz 160-12.5 mg Tab] 1 tab PO DAILY Montelukast Sodium [Singulair] 10 mg PO HS Simvastatin [Zocor] 20 mg PO HS Sertraline [Zoloft] 100 mg PO DAILY Mirabegron [Myrbetriq] 50 mg PO DAILY Aspirin [Adult Low Dose Aspirin EC] 81 mg PO DAILY ALPRAZolam [Xanax] 0.25 mg PO DAILY PRN PRN Reason: Anxiety Stool Softener 1 dose PO DAILY Discharge Medication List ALPRAZolam [Xanax] 0.25 mg PO DAILY PRN 11/08/17 [History] Amoxicillin 875 mg PO Q12HR 11/08/17 [History] Aspirin [Adult Low Dose Aspirin EC] 81 mg PO DAILY 11/08/17 [History] Ferrous Sulfate [Feosol] 325 mg PO BID 11/08/17 [History] Mirabegron [Myrbetriq] 50 mg PO DAILY 11/08/17 [History] Montelukast Sodium [Singulair] 10 mg PO HS 11/08/17 [History] Sertraline [Zoloft] 100 mg PO DAILY 11/08/17 [History] Simvastatin [Zocor] 20 mg PO HS 11/08/17 [History] Stool Softener 1 dose PO DAILY 11/08/17 [History] Valsartan/Hydrochlorothiazide [Valsartan-Hctz 160-12.5 mg Tab] 1 tab PO DAILY [History] Follow up Appointment(s)/Referral(s): Juan Pablo Rivera MD [Medical Doctor] - 11/29/17 [facility] Visiting Nurse, [NON-STAFF] - As Needed Patient Instructions/Handouts: Colorectal Cancer (DC), Colectomy (DC), Laparoscopic Bowel Resection (DC), Colectomy Diet (DC) Activity/Diet/Wound Care/Special Instructions: No tub bath for six weeks. Shower daily. No lifting over 10 pounds for the next 6 weeks. Wear abdominal binder for comfort May use ice packs to surgical site. No driving while taking narcotic for pain. Discharge Disposition: HOME WITH HOME HEALTH SERVICES
== END 2017-11-17 16:05 | disposition home health service (06) | DRG 330 ==
LOC: 2ORMAIN 07:51 → 5ONC 16:27
PROVIDERS: ADMIT Surgery; ATTEND Surgery
PROC: 8E0W4CZ Robotic Assisted Procedure of Trunk Region, Percutaneous Endoscopic Approach (ICD-10-PCS; 2017-11-12)
PROC: 0DTF4ZZ Resection of Right Large Intestine, Percutaneous Endoscopic Approach (ICD-10-PCS; principal; 2017-11-12 10:15)
DX: C18.0 Malignant neoplasm of cecum (principal); J96.11 Chronic respiratory failure with hypoxia; K92.2 Gastrointestinal hemorrhage, unspecified; E66.01 Morbid (severe) obesity due to excess calories; Z99.81 Dependence on supplemental oxygen; Z68.42 Body mass index [BMI] 45.0-49.9, adult; J44.9 Chronic obstructive pulmonary disease, unspecified; D50.0 Iron deficiency anemia secondary to blood loss (chronic); T81.82XA Emphysema (subcutaneous) resulting from a procedure, initial encounter; K66.0 Peritoneal adhesions (postprocedural) (postinfection); E78.5 Hyperlipidemia, unspecified; I10 Essential (primary) hypertension; K59.00 Constipation, unspecified; N39.3 Stress incontinence (female) (male); F32.9 Major depressive disorder, single episode, unspecified; Z79.82 Long term (current) use of aspirin; Z79.899 Other long term (current) drug therapy; Z87.891 Personal history of nicotine dependence; Z90.49 Acquired absence of other specified parts of digestive tract; Z90.710 Acquired absence of both cervix and uterus; Z80.0 Family history of malignant neoplasm of digestive organs; Y83.8 Other surgical procedures as the cause of abnormal reaction of the patient, or of later complication, without mention of misadventure at the time of the procedure; Y92.234 Operating room of hospital as the place of occurrence of the external cause
CPT/HCPCS: 72072; 80048; 80053; 85025; 86850; 86870; 86880; 86900; 86901; 86902; 88309; 94640; 94760

== ENCOUNTER 2022-08-02 19:52 | Emergency (ER) | payer MEDICARE, OTHER ==
[2022-08-02 20:28] VITALS: BP 134/56; PULSE 100; RESP 20
[2022-08-02 20:32] VITALS: TEMP 98.5
--- NOTE | 2022-08-02 21:08 | ED ---
Fall HPI - General Chief Complaint: Fall Stated Complaint: Fall/rt leg bruised swollen Time Seen by Provider: 08/02/22 20:50 Source: patient Mode of arrival: wheelchair - History of Present Illness Initial Comments: This is a pleasant 82-year-old female who usually walks with a walker. She has had increasing difficulty walking, lightheadedness, and 2 falls since last . Patient states she fell last . She is describing a mechanical fall but states she did feel lightheaded before the fall. Patient then fell again at about noon today when she was trying to poultry picker a piece of paper and fell into her [employer] cabinet. Patient struck the right side of her body to include the right forearm, right lower leg and the right side of her head. There was no loss of consciousness. Patient recalls the entire event. According to the daughter the patient seemed a bit out of it after the initial injury. However is back to baseline at this time. There was no preceding symptomology other than the lightheadedness. No syncopal symptoms. No chest pain. No palpitations. No focal neurologic deficits. She is denying any vision or hearing changes. No difficulty with speech. Patient complaining of pain to the right lower leg which is exacerbated by palpation. Denies any other significant pain. No other alleviating or exacerbating factors. Patient states there is extensive bruising to the area. Patient does have a history of colon cancer, COPD with oxygen dependence, hypertension. Patient takes aspirin but no other anticoagulation therapy. No headache, no fever or chills, no changes in vision or hearing, no sore throat or difficulty with speech, no neck pain, no chest pain or shortness of breath, no abdominal pain, no nausea or vomiting, no changes in urination or bowel movements, no numbness or tingling, no extremity pain, no skin rashes or l esions. Past medical, surgical, social, and family history reviewed. Complaint: fall Onset/Timin -: hour(s) Fall From: standing Fall Witnessed: yes, by family (Son) Place Fall Occurred: home Loss of Consciousness: none Prolonged Down Time?: no Symptoms Prior to Fall: lightheadedness Location: head, other (Right arm and like) Location - Extremities: Right: Forearm (Mild bruising only, no tenderness), Leg (Right lower leg with bruising down to the ankle and foot) - Related Data Home Medications Medication Instructions Recorded Confirmed ALPRAZolam [Xanax] 0.25 mg PO DAILY PRN 11/08/17 11/12/17 Amoxicillin 875 mg PO Q12HR 11/08/17 11/12/17 Aspirin [Adult Low Dose Aspirin EC] 81 mg PO DAILY 11/08/17 11/12/17 Ferrous Sulfate [Feosol] 325 mg PO BID 11/08/17 11/12/17 Mirabegron [Myrbetriq] 50 mg PO DAILY 11/08/17 11/12/17 Montelukast Sodium [Singulair] 10 mg PO HS 11/08/17 11/12/17 Sertraline [Zoloft] 100 mg PO DAILY 11/08/17 11/12/17 Simvastatin [Zocor] 20 mg PO HS 11/08/17 11/12/17 Stool Softener 1 dose PO DAILY 11/08/17 11/12/17 Valsartan/Hydrochlorothiazide 1 tab PO DAILY 11/08/17 11/12/17 [Valsartan-Hctz 160-12.5 mg Tab] Allergies Allergy/AdvReac Type Severity Reaction Status Date / Time Sulfa (Sulfonamide Allergy dry mouth Verified 11/12/17 08:39 Antibiotics) with difficulty swallowing Review of Systems ROS Statement: Those systems with pertinent positive or pertinent negative responses have been documented in the HPI. ROS Other: All systems not noted in ROS Statement are negative. 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, hypertension, hyperlipidemia, obesity History of Any Multi-Drug Resistant Organisms: None Reported Past Surgical History: Appendectomy, Breast Surgery, Hernia Repair, Hysterectomy, Tubal Ligation Past Anesthesia/Blood Transfusion Reactions: No Reported Reaction Past Psychological History: Anxiety Past Alcohol Use History: None Reported Past Drug Use History: None Reported - Past Family History Sister(s) Family Medical History: Cancer, Coronary Artery Disease (CAD), Neurologic Disorder Additional Family Medical History / Comment(s): colon cancer, 2nd sister with MS General Exam - General Exam Comments Initial Comments: Deconditioned appearing 82-year-old female in no significant distress at the time I'm seeing her. Obvious bruising noted to the lower right leg. Head miguel traumatic. Blu Coma Scale is 15. Arytenoid 4. Cranial nerves II through XII intact. Limitations: no limitations General appearance: alert, in no apparent distress Head exam: Present: atraumatic, normocephalic, normal inspection Eye exam: Present: normal appearance, PERRL, EOMI. Absent: scleral icterus, conjunctival injection, periorbital swelling ENT exam: Present: normal exam, normal oropharynx, mucous membranes dry, mucous membranes moist, normal external ear exam Neck exam: Present: normal inspection, full ROM, other (No spinal tenderness). Absent: tenderness, meningismus, lymphadenopathy Respiratory exam: Present: normal lung sounds bilaterally. Absent: respiratory distress, wheezes, rales, rhonchi, stridor, chest wall tenderness, accessory muscle use, decreased breath sounds, prolonged expiratory Cardiovascular Exam: Present: regular rate, normal rhythm, normal heart sounds. Absent: systolic murmur, diastolic murmur, rubs, gallop, clicks GI/Abdominal exam: Present: soft, normal bowel sounds. Absent: distended, tenderness, guarding, rebound, rigid Extremities exam: Present: normal inspection, full ROM, tenderness (Patient has tenderness to the lateral aspect of the right lower leg with extensive bruising from that area down to the ankle and foot. No tenderness elsewhere.), normal capillary refill, other (Full range of motion all major joints. Full muscle strength all major muscle groups. No tenderness in the right arm overlying the bruising. No break in skin integrity). Absent: pedal edema, joint swelling, calf tenderness Back exam: Present: normal inspection Neurological exam: Present: alert, oriented X3, CN II-XII intact. Absent: motor sensory deficit Expanded Patient oriented to: Present: person, place, time Speech: Present: fluid speech Cranial nerves: EOM's Intact: Normal, Gag Reflex: Normal, Tongue Deviation: Normal, Nystagmus: Normal, Facial Sensation: Normal, Facial Palsy with Forehead Movement: Normal, Facial Palsy without Forehead Movement: Normal Cerebellar function: Finger to Nose: Normal, Heel to Roy: Normal Sensory exam: Upper Extremity Light Touch: Normal, Lower Extremity Light Touch: Normal Motor strength exam: RUE: 5, LUE: 5, RLE: 5, LLE: 5 Eye Response: (4) open spontaneously Motor Response: (6) obeys commands Verbal Response: (5) oriented Gervais Total: 15 Psychiatric exam: Present: normal affect, normal mood Skin exam: Present: warm, dry, intact, normal color. Absent: rash Course Vital Signs 08/02/22 20:24 Temperature 98.5 F Pulse Rate 100 Respiratory 20 Rate Blood Pressure 134/56 O2 Sat by Pulse 94 L Oximetry - Reevaluation(s) Reevaluation #1: 08/02/22 23:12 Medical record is reviewed Symptoms are improved here in the emergency department Patient is informed of results and questions answered Patient in no distress Medical Decision Making - Medical Decision Making Differential diagnosis, soft tissue injuries versus fractures. Closed head injury versus intracranial hemorrhage. Generalized weakness with multiple falls. This may be related to just progressive difficulty with ambulation given the patient's age and comorbidities. Patient does not appear to be ill or toxic otherwise. Computed tomography scan of the brain and cervical spine indicated due to the pa girish's age and head injury. Trauma profile initiated. Independent interpretation of the plain film x-rays of the right foot, right tibia/fibula, chest x-ray, CT of the brain and cervical spine reveal no evidence of acute pathology, other than the soft tissue swelling of the right leg, as read by me. I did review the radiology interpretation. CBC did show mildly elevated white blood cell count which is likely reactive in nature. 13,100. Neutrophils 10,400. Remainder was unremarkable. Minimal elevations of hepatic enzymes at 83 and 88, carbon dioxide 32, BUN/creatinine 18, creatinine 1.15, glucose 106, remainder of the CMP normal. Coagulation studies normal. Urinalysis shows 17 red cells but no other evidence of infectious pathology. Drug screen shows benzodiazepines. Alcohol negative. Troponin negative. EKG not diagnostic. All findings discussed with the patient and her son. Due to the patient's ongoing lightheadedness, 2 falls within the last 8 days. I did offer admission to the patient. After a long discussion with the son and the patient. Patient wanted to go home and states she felt well enough to go home. Patient discharged her shared decision-making. Patient was told to return to the ER for any signs or symptoms worsen. Told to return immediately if any other problems arise. All questions answered. Treatment plan discussed. Patient in agreement Every effort has been made to ensure accuracy of this dictation. However, due to the limitations of electronic medical records and dictation devices, errors in charting still occur. The case was discussed in detail with ED attending physician. Presentation, findings, treatment plan discussed in detail. Supervising Dr. Sethi - Lab Data Result diagrams: 08/02/22 21:35 08/02/22 21:35 Lab Results 08/02/22 08/02/22 08/02/22 Range/Units 21:35 21:35 21:35 WBC 13.1 H (3.8-10.6) k/uL RBC 3.89 (3.80-5.40) m/uL Hgb 11.9 (11.4-16.0) gm/dL Hct 35.0 (34.0-46.0) % MCV 89.9 (80.0-100.0) fL MCH 30.5 (25.0-35.0) pg MCHC 33.9 (31.0-37.0) g/dL RDW 12.8 (11.5-15.5) % Plt Count 283 (150-450) k/uL MPV 8.7 Neutrophils % 80 % Lymphocytes % 12 % Monocytes % 5 % Eosinophils % 2 % Basophils % 0 % Neutrophils # 10.4 H (1.3-7.7) k/uL Lymphocytes # 1.5 (1.0-4.8) k/uL Monocytes # 0.6 (0-1.0) k/uL Eosinophils # 0.3 (0-0.7) k/uL Basophils # 0.0 (0-0.2) k/uL PT 9.5 (9.0-12.0) sec INR 0.9 (<1.2) APTT 23.7 (22.0-30.0) sec Sodium 138 (137-145) mmol/L Potassium 4.1 (3.5-5.1) mmol/L Chloride 100 (98-107) mmol/L Carbon Dioxide 32 H (22-30) mmol/L Anion Gap 6 mmol/L BUN 18 H (7-17) mg/dL Creatinine 1.15 H (0.52-1.04) mg/dL Est GFR (CKD-EPI)AfAm 51 (>60 ml/min/1.73 sqM) Est GFR (CKD-EPI)NonAf 45 (>60 ml/min/1.73 sqM) Glucose 106 H (74-99) mg/dL Calcium 8.9 (8.4-10.2) mg/dL Magnesium 2.3 (1.6-2.3) mg/dL Total Bilirubin 1.2 (0.2-1.3) mg/dL AST 83 H (14-36) U/L ALT 88 H (4-34) U/L Alkaline Phosphatase 111 (38-126) U/L Troponin I (0.000-0.034) ng/mL Total Protein 6.6 (6.3-8.2) g/dL Albumin 3.9 (3.5-5.0) g/dL Urine Color Urine Appearance (Clear) Urine pH (5.0-8.0) Ur Specific Dickerson (1.001-1.035) Urine Protein (Negative) Urine Glucose (UA) (Negative) Urine Ketones (Negative) Urine Blood (Negative) Urine Nitrite (Negative) Urine Bilirubin (Negative) Urine Urobilinogen (<2.0) mg/dL Ur Leukocyte Esterase (Negative) Urine RBC (0-5) /hpf Urine WBC (0-5) /hpf Ur Squamous Epith Cells (0-4) /hpf Ur Transition Epith Cell (0-1) /hpf Urine Bacteria (None) /hpf Urine Mucus (None) /hpf Urine Opiates Screen (NotDetected) Ur Oxycodone Screen (NotDetected) Urine Methadone Screen (NotDetected) Ur Propoxyphene Screen (NotDetected) Ur Barbiturates Screen (NotDetected) U Tricyclic Antidepress (NotDetected) Ur Phencyclidine Scrn (NotDetected) Ur Amphetamines Screen (NotDetected) U Methamphetamines Scrn (NotDetected) U Benzodiazepines Scrn (NotDetected) Urine Cocaine Screen (NotDetected) U Marijuana (THC) Screen (NotDetected) Serum Alcohol <10 mg/dL Blood Type Blood Type Recheck Bld Type Recheck Status Antibody Screen Spec Expiration Date 08/02/22 08/02/22 08/02/22 Range/Units 21:35 21:35 22:50 WBC (3.8-10.6) k/uL RBC (3.80-5.40) m/uL Hgb (11.4-16.0) gm/dL Hct (34.0-46.0) % MCV (80.0-100.0) fL MCH (25.0-35.0) pg MCHC (31.0-37.0) g/dL RDW (11.5-15.5) % Plt Count (150-450) k/uL MPV Neutrophils % % Lymphocytes % % Monocytes % % Eosinophils % % Basophils % % Neutrophils # (1.3-7.7) k/uL Lymphocytes # (1.0-4.8) k/uL Monocytes # (0-1.0) k/uL Eosinophils # (0-0.7) k/uL Basophils # (0-0.2) k/uL PT (9.0-12.0) sec INR (<1.2) APTT (22.0-30.0) sec Sodium (137-145) mmol/L Potassium (3.5-5.1) mmol/L Chloride (98-107) mmol/L Carbon Dioxide (22-30) mmol/L Anion Gap mmol/L BUN (7-17) mg/dL Creatinine (0.52-1.04) mg/dL Est GFR (CKD-EPI)AfAm (>60 ml/min/1.73 sqM) Est GFR (CKD-EPI)NonAf (>60 ml/min/1.73 sqM) Glucose (74-99) mg/dL Calcium (8.4-10.2) mg/dL Magnesium (1.6-2.3) mg/dL Total Bilirubin (0.2-1.3) mg/dL AST (14-36) U/L ALT (4-34) U/L Alkaline Phosphatase (38-126) U/L Troponin I <0.012 (0.000-0.034) ng/mL Total Protein (6.3-8.2) g/dL Albumin (3.5-5.0) g/dL Urine Color Urine Appearance (Clear) Urine pH (5.0-8.0) Ur Specific Dickerson (1.001-1.035) Urine Protein (Negative) Urine Glucose (UA) (Negative) Urine Ketones (Negative) Urine Blood (Negative) Urine Nitrite (Negative) Urine Bilirubin (Negative) Urine Urobilinogen (<2.0) mg/dL Ur Leukocyte Esterase (Negative) Urine RBC (0-5) /hpf Urine WBC (0-5) /hpf Ur Squamous Epith Cells (0-4) /hpf Ur Transition Epith Cell (0-1) /hpf Urine Bacteria (None) /hpf Urine Mucus (None) /hpf Urine Opiates Screen Not Detected (NotDetected) Ur Oxycodone Screen Not Detected (NotDetected) Urine Methadone Screen Not Detected (NotDetected) Ur Propoxyphene Screen Not Detected (NotDetected) Ur Barbiturates Screen Not Detected (NotDetected) U Tricyclic Antidepress Not Detected (NotDetected) Ur Phencyclidine Scrn Not Detected (NotDetected) Ur Amphetamines Screen Not Detected (NotDetected) U Methamphetamines Scrn Not Detected (NotDetected) U Benzodiazepines Scrn Detected H (NotDetected) Urine Cocaine Screen Not Detected (NotDetected) U Marijuana (THC) Screen Not Detected (NotDetected) Serum Alcohol mg/dL Blood Type AB Negative Blood Type Recheck AB Neg Bld Type Recheck Status No Antibody Screen POSITIVE Spec Expiration Date 08/05/2022 - 233408/02/22 Range/Units 22:50 WBC (3.8-10.6) k/uL RBC (3.80-5.40) m/uL Hgb (11.4-16.0) gm/dL Hct (34.0-46.0) % MCV (80.0-100.0) fL MCH (25.0-35.0) pg MCHC (31.0-37.0) g/dL RDW (11.5-15.5) % Plt Count (150-450) k/uL MPV Neutrophils % % Lymphocytes % % Monocytes % % Eosinophils % % Basophils % % Neutrophils # (1.3-7.7) k/uL Lymphocytes # (1.0-4.8) k/uL Monocytes # (0-1.0) k/uL Eosinophils # (0-0.7) k/uL Basophils # (0-0.2) k/uL PT (9.0-12.0) sec INR (<1.2) APTT (22.0-30.0) sec Sodium (137-145) mmol/L Potassium (3.5-5.1) mmol/L Chloride (98-107) mmol/L Carbon Dioxide (22-30) mmol/L Anion Gap mmol/L BUN (7-17) mg/dL Creatinine (0.52-1.04) mg/dL Est GFR (CKD-EPI)AfAm (>60 ml/min/1.73 sqM) Est GFR (CKD-EPI)NonAf (>60 ml/min/1.73 sqM) Glucose (74-99) mg/dL Calcium (8.4-10.2) mg/dL Magnesium (1.6-2.3) mg/dL Total Bilirubin (0.2-1.3) mg/dL AST (14-36) U/L ALT (4-34) U/L Alkaline Phosphatase (38-126) U/L Troponin I (0.000-0.034) ng/mL Total Protein (6.3-8.2) g/dL Albumin (3.5-5.0) g/dL Urine Color Yellow Urine Appearance Clear (Clear) Urine pH 5.5 (5.0-8.0) Ur Specific Dickerson 1.013 (1.001-1.035) Urine Protein Negative (Negative) Urine Glucose (UA) Negative (Negative) Urine Ketones Negative (Negative) Urine Blood Negative (Negative) Urine Nitrite Negative (Negative) Urine Bilirubin Negative (Negative) Urine Urobilinogen <2.0 (<2.0) mg/dL Ur Leukocyte Esterase Large H (Negative) Urine RBC 17 H (0-5) /hpf Urine WBC 3 (0-5) /hpf Ur Squamous Epith Cells 1 (0-4) /hpf Ur Transition Epith Cell <1 (0-1) /hpf Urine Bacteria Rare H (None) /hpf Urine Mucus Rare H (None) /hpf Urine Opiates Screen (NotDetected) Ur Oxycodone Screen (NotDetected) Urine Methadone Screen (NotDetected) Ur Propoxyphene Screen (NotDetected) Ur Barbiturates Screen (NotDetected) U Tricyclic Antidepress (NotDetected) Ur Phencyclidine Scrn (NotDetected) Ur Amphetamines Screen (NotDetected) U Methamphetamines Scrn (NotDetected) U Benzodiazepines Scrn (NotDetected) Urine Cocaine Screen (NotDetected) U Marijuana (THC) Screen (NotDetected) Serum Alcohol mg/dL Blood Type Blood Type Recheck Bld Type Recheck Status Antibody Screen Spec Expiration Date - EKG Data EKG Comments: Independent interpretation EKG at 2303 by me reveals sinus tachycardia with occasional PVCs. Rate 106, normal intervals, normal axis, no evidence of definitive ST elevation or depression. Evidence of left anterior fascicular block, poor R-wave progression, Q-wave in lead 2 and aVF. No comparison study Disposition Clinical Impression: Fall, Contusion of right lower leg, subsequent encounter, Hematoma of right lower leg, Dizziness, Closed head injury Narrative: Mechanical fall Disposition: HOME SELF-CARE Condition: Good Instructions (If sedation given, give patient instructions): Fall Prevention for Older Adults (ED), Head Injury (ED), Contusion in Adults (ED) Additional Instructions: Elevation, ice 20 minutes on and off for times daily, call tomorrow morning for follow-up appointment with your regular physician. Follow-up with your regular physician as directed. Return to the ER immediately if any symptoms worsen, new symptoms arise, or any other problems develop. Is patient prescribed a controlled substance at d/c from ED?: No Referrals: Juan Pablo Fowler MD [REFERRING] - 1-2 days Time of Disposition: 23:30
[2022-08-02 21:44] LABS: Basophils % (A) 0 %; Eosinophils # (A) 0.3 k/uL (0-0.7); Eosinophils % (A) 2 %; HGB 11.9 gm/dL (11.4-16.0); Lymphocytes # (A) 1.5 k/uL (1.0-4.8); Lymphocytes % (A) 12 %; MCH 30.5 pg (25.0-35.0); MCHC 33.9 g/dL (31.0-37.0); MCV 89.9 fL (80.0-100.0); Mean Platelet Volume 8.7; Monocytes # (A) 0.6 k/uL (0-1.0); Monocytes % (A) 5 %; Neutrophils # (A) 10.4 k/uL (1.3-7.7); Neutrophils % (A) 80 %; Platelet Count 283 k/uL (150-450); RBC 3.89 m/uL (3.80-5.40); RDW 12.8 % (11.5-15.5); WBC 13.1 k/uL (3.8-10.6)
[2022-08-02 21:56] LABS: INR 0.9 (<1.2); Partial Thromboplastin Time 23.7 sec (22.0-30.0); Prothrombin Time 9.5 sec (9.0-12.0)
[2022-08-02 21:57] LABS: ALT 88 U/L (4-34); AST 83 U/L (14-36); Alcohol <10 mg/dL; Alkaline Phosphatase 111 U/L (38-126); Magnesium 2.3 mg/dL (1.6-2.3); Total Bilirubin 1.2 mg/dL (0.2-1.3)
--- NOTE | 2022-08-02 22:23 | CT ---
EXAMINATION TYPE: CT brain leesa worthington con DATE OF EXAM: 08/02/2022 COMPARISON: NONE HISTORY: FALL X 1 WEEK AGO, HEADACHES and neck pain. CT DLP: 1637 mGycm. Automated Exposure Control for Dose Reduction was Utilized. TECHNIQUE: CT scan of the head and cervical spine are performed without contrast. FINDINGS: There is no acute intracranial hemorrhage or midline shift identified. Mild to moderate v entricular and sulcal prominence. Mild to moderate low-attenuation in the deep and periventricular w adrian matter. The globes are intact and the visualized sinuses are clear. Cervical spine is visualized in its entirety from C1 through upper thoracic levels and demonstrates d extroconvex scoliosis centered upper thoracic spine without evidence of acute fracture or dislocation . Prevertebral soft tissue appears within normal limits. The C1-C2 articulation is within normal li mits on the coronal images. Vertebral body height are maintained. Moderate disc space narrowing C4-C 5 through C6-C7 levels with [id number] spurring. Spinal canal is preserved. Axial images show n ormal-appearing thyroid gland. Lung apices show emphysematous change without pneumothorax. IMPRESSION: 1. There is no acute fracture or dislocation evident in the cervical spine. 2. No acute intracranial hemorrhage or midline shift is seen.
[2022-08-02 22:26] LABS: African American GFR (CKD) 51 (>60 ml/min/1.73 sqM); Albumin 3.9 g/dL (3.5-5.0); Anion Gap 6 mmol/L; Blood Urea Nitrogen 18 mg/dL (7-17); Calcium 8.9 mg/dL (8.4-10.2); Carbon Dioxide 32 mmol/L (22-30); Chloride 100 mmol/L (98-107); Glucose 106 mg/dL (74-99); Non-African American GFR(CKD) 45 (>60 ml/min/1.73 sqM); Potassium 4.1 mmol/L (3.5-5.1); Sodium 138 mmol/L (137-145); Total Protein 6.6 g/dL (6.3-8.2)
--- NOTE | 2022-08-02 22:33 | XR ---
EXAMINATION TYPE: XR pelvis AP view DATE OF EXAM: 08/02/2022 COMPARISON: NONE HISTORY: Fall. Pain. TECHNIQUE: Single view FINDINGS: Pelvic ring appears intact. The proximal femurs and hip joints are intact. Sacroiliac joint s are intact IMPRESSION: Negative pelvis x-ray exam. No fracture.
--- NOTE | 2022-08-02 22:34 | XR ---
EXAMINATION TYPE: XR chest 1V portable DATE OF EXAM: 08/02/2022 COMPARISON: NONE HISTORY: Fall. Pain TECHNIQUE: Single view FINDINGS: Heart and mediastinum are normal. Lungs are clear. The diaphragm is normal. Bony thorax is intact. The pulmonary vascularity is normal. IMPRESSION: Normal chest.
--- NOTE | 2022-08-02 22:35 | XR ---
EXAMINATION TYPE: XR tibia fibula RT DATE OF EXAM: 08/02/2022 COMPARISON: NONE HISTORY: Fall. Pain TECHNIQUE: 2 views FINDINGS: There is moderate narrowing of the medial joint space of the right knee. No fracture seen. Ankle joint is intact. There is a large Achilles calcaneal spur. IMPRESSION: Moderate arthritis or arthritis in the medial joint space of the knee. No fracture. Some soft tissue swelling on the lateral aspect of the ankle.
--- NOTE | 2022-08-02 22:36 | XR ---
EXAMINATION TYPE: XR foot complete RT DATE OF EXAM: 08/02/2022 COMPARISON: NONE HISTORY: Fall. Pain TECHNIQUE: 3 views FINDINGS: Metatarsals are intact. There is plantar and Achilles calcaneal spurring. There is soft tis marck swelling of the forefoot. No fracture seen. IMPRESSION: Soft tissue swelling. No fracture.
[2022-08-02 23:21] LABS: Appearance,Urine Clear (Clear); Bacteria,Urine Rare /hpf; Bilirubin,Urine Negative (Negative); Blood,Urine Negative (Negative); Color,Urine Yellow; Glucose,Urine (UA) Negative (Negative); Ketones,Urine Negative (Negative); Leukocyte Esterase,Urine Large (Negative); Mucus,Urine Rare /hpf; Nitrite,Urine Negative (Negative); PH, Urine 5.5 (5.0-8.0); Protein,Urine Negative (Negative); RBC,Urine 17 /hpf (0-5); Specific Gravity,Urine 1.013 (1.001-1.035); Squamous Epithelial Cell,Urine 1 /hpf (0-4); Transitional Epi Cells,Urine <1 /hpf (0-1); Urobilinogen,Urine <2.0 mg/dL (<2.0); WBC,Urine 3 /hpf (0-5)
[2022-08-02 23:28] LABS: Amphetamine Screen,Urine Not Detected (NotDetected); Barbiturate Screen,Urine Not Detected (NotDetected); Benzodiazepines Screen,Urine Detected (NotDetected); Cocaine Screen,Urine Not Detected (NotDetected); Methadone Screen, Urine Not Detected (NotDetected); Opiate Screen,Urine Not Detected (NotDetected); Oxycodone Screen, Urine Not Detected (NotDetected); Phencyclidine Screen,Urine Not Detected (NotDetected); Tricyclic Antidepressant,Urine Not Detected (NotDetected); Urn Cannabinoid Scrn Not Detected (NotDetected)
== END 2022-08-02 23:44 | disposition home or self-care (01) ==
LOC: EC 19:52
DX: S80.11XD Contusion of right lower leg, subsequent encounter (principal); R42 Dizziness and giddiness; J44.9 Chronic obstructive pulmonary disease, unspecified; I10 Essential (primary) hypertension; E78.5 Hyperlipidemia, unspecified; F41.9 Anxiety disorder, unspecified; Z88.2 Allergy status to sulfonamides; W18.30XA Fall on same level, unspecified, initial encounter
CPT/HCPCS: 36415; 86900; 86901; 80053; 83735; 84484; 85025; 85610; 85730; 86850; 86870; 86880; 81001; 80306; 72170; 73590; 73630; 71045; 72125; 70450; 99284; G0480; 80320; 93005

== ENCOUNTER 2024-06-28 16:20 | Inpatient (IN) | payer MEDICARE, OTHER ==
--- NOTE | 2024-06-28 16:53 | ED ---
General Adult HPI - General Chief complaint: Altered Mental Status Stated complaint: Altered Mental Status, DUYEN Time Seen by Provider: 06/28/24 16:22 Source: patient, EMS Mode of arrival: EMS - History of Present Illness Initial comments: Dictation was produced using [employer] dictation software. please excuse any grammatical, word or spelling errors. Chief Complaint: 84-year-old male presents emergency department for altered mental status History of Present Illness: Patient is an 84-year-old male she has past medical history of COPD, dyslipidemia hypertension. Patient brought in by EMS from home. Patient is a poor historian. According to EMS patient was brought to the ER for concerns of altered mental status. There was no comment by EMS if patient had any focal neurologic deficits. Patient thinks that she is here because she had a feeling as if the world was going to end. Denies any shortness of breath. Denies any chest pain The ROS documented in this emergency department record has been reviewed and confirmed by me. Those systems with pertinent positive or negative responses have been documented in the HPI. All other systems are other negative and/or noncontributory. - Related Data Home Medications Medication Instructions Recorded Confirmed ALPRAZolam [Xanax] 0.25 mg PO DAILY PRN 11/08/17 06/28/24 Aspirin [Adult Low Dose Aspirin EC] 81 mg PO DAILY 11/08/17 06/28/24 Mirabegron [Myrbetriq] 50 mg PO DAILY 11/08/17 06/28/24 Simvastatin [Zocor] 20 mg PO HS 11/08/17 06/28/24 Albuterol Inhaler [Ventolin Hfa 2 puff INHALATION RT-Q6H PRN 06/28/24 06/28/24 Inhaler] Arformoterol Tartrate 15 mcg INHALATION RT-BID 06/28/24 06/28/24 Budesonide [Pulmicort] 0.5 mg INHALATION RT-BID 06/28/24 06/28/24 Escitalopram [Lexapro] 10 mg PO DAILY 06/28/24 06/28/24 Solifenacin Succinate 10 mg PO DAILY 06/28/24 06/28/24 Allergies Allergy/AdvReac Type Severity Reaction Status Date / Time Sulfa (Sulfonamide Allergy dry mouth Verified 06/28/24 19:34 Antibiotics) with difficulty swallowing Review of Systems ROS Statement: Those systems with pertinent positive or pertinent negative responses have been documented in the HPI. ROS Other: All systems not noted in ROS Statement are negative. 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, hypertension, hyperlipidemia, obesity History of Any Multi-Drug Resistant Organisms: None Reported Past Surgical History: Appendectomy, Breast Surgery, Hernia Repair, Hysterectomy, Tubal Ligation Past Anesthesia/Blood Transfusion Reactions: No Reported Reaction Past Psychological History: Anxiety Past Alcohol Use History: None Reported Past Drug Use History: None Reported - Past Family History Sister(s) Family Medical History: Cancer, Coronary Artery Disease (CAD), Neurologic Disorder Additional Family Medical History / Comment(s): colon cancer, 2nd sister with MS General Exam - General Exam Comments Initial Comments: PHYSICAL EXAM: General Impression: Alert and oriented x3/4, not in acute distress HEENT: Normocephalic atraumatic, extra-ocular movements intact, pupils equal and reactive to light bilaterally, mucous membranes moist. Cardiovascular: Heart regular rate and rhythm Chest: Able to complete full sentences, no retractions, no tachypnea Abdomen: abdomen soft, non-tender, non-distended, no organomegaly Musculoskeletal: Pulses present and equal in all extremities, no peripheral edema Motor: no focal deficits noted Neurological: CN II-XII grossly intact, no focal motor or sensory deficits noted Skin: Intact with no visualized rashes Psych: Normal affect and mood Course Vital Signs 06/28/24 06/28/24 16:24 18:09 Temperature 98.7 F Pulse Rate 98 100 Respiratory 18 18 Rate Blood Pressure 158/72 125/85 O2 Sat by Pulse 96 95 Oximetry - Reevaluation(s) Reevaluation #1: 06/28/24 20:24 History was obtained from patient's son, Gonzalo. Apparently over the last several days she has been having hallucinations where she would be talking to people that are not there. This evening they went out to have a cigarette when they came back and patient was having strange behaviors. EKG Findings - EKG Comments: EKG Findings:: My EKG interpretation: Ventricular rate 102, sinus tachycardia,. Will 215, QRS 93, QTc 425. No MN prolongation, no QTC prolongation, no ST or T- wave changes noted. Overall, this EKG is unremarkable Medical Decision Making - Medical Decision Making Was pt. sent in by a medical professional or institution (, PA, BUSINESS QUALITY ASSURANCE ANALYST, urgent care, hospital, or long-term...) When possible be specific @ -No Did you speak to anyone other than the patient for history (EMS, parent, family, police, friend...)? What history was obtained from this source @ -As above Did you review nursing and triage notes (agree or disagree)? Why? @ -I reviewed and agree with nursing and triage notes Were old charts reviewed (outside hosp., previous admission, EMS record, old EKG, old radiological studies, urgent care reports/EKG's, long-term records)? Report findings @ -No old charts were reviewed Differential Diagnosis (chest pain, altered mental status, abdominal pain women, abdominal pain men, vaginal bleeding, musculoskeletal, weakness, fever, dyspnea, syncope, headache, dizziness, GI bleed, back pain, seizure, CVA, palpatations, mental health)? @ -Differential Altered Mental Status: Hypoglycemia, DKA, hypercapnia, ETOH, overdose, CO poisoning, trauma, myxedema coma, HTN encephalopathy, infection, encephalitis, psychosis, intercranial hemorrhage, hepatic encephalopathy, meningitis, CVA, this is not meant to be an all-inclusive list EKG interpreted by me (3pts min.). @-See above X-rays interpreted by me (1pt min.). @ -Chest x-ray is nonacute CT interpreted by me (1pt min.). @ -CT brain shows no acute processes U/S interpreted by me (1pt. min.). @ -None done What testing was considered but not performed or refused? (CT, X-rays, U/S, labs)? Why? @ -None What meds were considered but not given or refused? Why? @ -None Was smoking cessation discussed for >3mins.? @ -No Were there social determinants of health that impacted care today? How? (Homelessness, low income, unemployed, alcoholism, drug addiction, transportation, low edu. Level, literacy, decrease access to med. care, fpc, rehab)? @ -No Was there de-escalation of care discussed even if they declined (Discuss DNR or withdrawal of care, Hospice)? DNR status @ -No What co-morbidities impacted this encounter? (DM, HTN, Smoking, COPD, CAD, Cancer, CVA, ARF, Chemo, Hep., AIDS, mental health diagnosis, sleep apnea, morbid obesity)? @ -oldAge Was patient admitted / discharged? Hospital course, mention meds given and route, prescriptions, significant lab abnormalities, going to OR and other pertinent info. @ -84-year-old female presents to the emergency department for altered mental status, hallucinations. Vital signs upon arrival are within acceptable limits. Patient has been having severe escalation according to family of her altered mental status. She does not have any formal diagnosis of dementia. Vital signs stable. Patient has no focal neurologic findings. Family did not feel comfortable taking her home. Patient will be admitted observation consultation to neurology. Did you discuss the management of the patient with other professionals (professionals i.e. , PA, BUSINESS QUALITY ASSURANCE ANALYST, lab, RT, psych nurse, vp digital marketing social media and crm, liquefier, teacher, detention officer, complex case manager)? Give summary @ -Case discussed with hospitalist for admission Was critical care preformed (if so, how long)? @ -No Undiagnosed new problem with uncertain prognosis? @ -No Drug Therapy requiring intensive monitoring for toxicity (Heparin, Nitro, Insulin, Cardizem)? @ -No Were any procedures done? @ -No Diagnosis/symptom? Acute, or Chronic, or Acute on Chronic? Uncomplicated (without systemic symptoms) or Complicated (systemic symptoms)? @ -Hallucinations, no obvious source Side effects of treatment? @ -No Exacerbation, Progression, or Severe Exacerbation? @ -No Poses a threat to life or bodily function? How? (Chest pain, USA, MA, pneumonia, PE, COPD, DKA, ARF, appy, cholecystitis, CVA, Diverticulitis, Homicidal, Suicidal, threat to staff... and all critical care pts) @ -yes - Lab Data Result diagrams: 06/28/24 16:47 06/28/24 16:47 Lab Results 06/28/24 06/28/24 Range/Units 16:47 16:47 WBC 7.3 (3.8-10.6) k/uL RBC 4.62 (3.80-5.40) m/uL Hgb 12.6 (11.4-16.0) gm/dL Hct 39.9 (34.0-46.0) % MCV 86.2 (80.0-100.0) fL MCH 27.3 (25.0-35.0) pg MCHC 31.7 (31.0-37.0) g/dL RDW 14.1 (11.5-15.5) % Plt Count 271 (150-450) k/uL MPV 8.3 Neutrophils % 73 % Lymphocytes % 15 % Monocytes % 7 % Eosinophils % 4 % Basophils % 1 % Neutrophils # 5.3 (1.3-7.7) k/uL Lymphocytes # 1.1 (1.0-4.8) k/uL Monocytes # 0.5 (0-1.0) k/uL Eosinophils # 0.3 (0-0.7) k/uL Basophils # 0.0 (0-0.2) k/uL Sodium 139 (137-145) mmol/L Potassium 3.9 (3.5-5.1) mmol/L Chloride 104 (98-107) mmol/L Carbon Dioxide 29 (22-30) mmol/L Anion Gap 6 mmol/L BUN 10 (7-17) mg/dL Creatinine 0.91 (0.52-1.04) mg/dL Est GFR (CKD-EPI)AfAm 67 (>60 ml/min/1.73 sqM) Est GFR (CKD-EPI)NonAf 58 (>60 ml/min/1.73 sqM) Glucose 87 (74-99) mg/dL Calcium 8.8 (8.4-10.2) mg/dL Magnesium 2.0 (1.6-2.3) mg/dL Total Bilirubin 0.9 (0.2-1.3) mg/dL AST 25 (14-36) U/L ALT 12 (4-34) U/L Alkaline Phosphatase 66 (38-126) U/L Total Protein 6.6 (6.3-8.2) g/dL Albumin 4.0 (3.5-5.0) g/dL Disposition Clinical Impression: Hallucination Disposition: ADMITTED IP TO THIS HOSP Condition: Fair Referrals: Elli Zaidi DO [Primary Care Provider] - 1-2 days Decision Time: 20:44
[2024-06-28 17:02] LABS: Basophils % (A) 1 %; Eosinophils # (A) 0.3 k/uL (0-0.7); Eosinophils % (A) 4 %; HCT 39.9 % (34.0-46.0); HGB 12.6 gm/dL (11.4-16.0); Lymphocytes # (A) 1.1 k/uL (1.0-4.8); Lymphocytes % (A) 15 %; MCH 27.3 pg (25.0-35.0); MCHC 31.7 g/dL (31.0-37.0); MCV 86.2 fL (80.0-100.0); Mean Platelet Volume 8.3; Monocytes # (A) 0.5 k/uL (0-1.0); Monocytes % (A) 7 %; Neutrophils # (A) 5.3 k/uL (1.3-7.7); Neutrophils % (A) 73 %; Platelet Count 271 k/uL (150-450); RBC 4.62 m/uL (3.80-5.40); RDW 14.1 % (11.5-15.5); WBC 7.3 k/uL (3.8-10.6)
[2024-06-28 17:15] LABS: ALT 12 U/L (4-34); AST 25 U/L (14-36); African American GFR (CKD) 67 (>60 ml/min/1.73 sqM); Alkaline Phosphatase 66 U/L (38-126); Anion Gap 6 mmol/L; Blood Urea Nitrogen 10 mg/dL (7-17); Calcium 8.8 mg/dL (8.4-10.2); Carbon Dioxide 29 mmol/L (22-30); Chloride 104 mmol/L (98-107); Glucose 87 mg/dL (74-99); Non-African American GFR(CKD) 58 (>60 ml/min/1.73 sqM); Potassium 3.9 mmol/L (3.5-5.1); Sodium 139 mmol/L (137-145); Total Bilirubin 0.9 mg/dL (0.2-1.3); Total Protein 6.6 g/dL (6.3-8.2)
--- NOTE | 2024-06-28 18:31 | XR ---
EXAMINATION TYPE: XR chest 2V DATE OF EXAM: 06/28/2024 6:28 PM COMPARISON: Previous chest radiograph 08/02/2020. CLINICAL INDICATION: Female, 84 years old with history of ams; [facility] TECHNIQUE: XR chest 2V Frontal and lateral views of the chest. FINDINGS: Cardiomegaly. No acute focal consolidation. No pleural effusion. No evidence of a pneumothorax. No acute osseous abnormality. IMPRESSION: No acute cardiopulmonary disease/process. [facility], , 06/28/2024 6:29 PM
--- NOTE | 2024-06-28 18:38 | CT ---
EXAMINATION TYPE: CT brain wo con DATE OF EXAM: 06/28/2024 6:30 PM COMPARISON: Previous CT study dated 08/02/2022.. CLINICAL INDICATION: Female, 84 years old with history of ams, ams TECHNIQUE: Brain: Axial CT images of the brain were obtained with coronal and sagittal reformats created and rev iewed. Contrast used: None. Oral contrast used: None. CT DLP: 1150.4 mGycm, Automated exposure control for dose reduction was used. FINDINGS: Brain: No acute intracranial hemorrhage, midline shift or evidence of significant mass effect. Ventricles an d sulci prominent with generalized cerebral volume loss. Basal cisterns appear patent. No sizable ext ra-axial fluid collection. Mastoid air cells and paranasal sinuses appear patent. No calvarial fractu re. IMPRESSION: No acute intracranial process. [facility], Workstation: [id number], 06/28/2024 6:36 PM
[2024-06-28] MEDS ORDERED: NALOXONE 0.4 MG/ML 1 ML VIAL IV PRN (20:38)
[2024-06-28 21:25] LABS: Appearance,Urine Clear (Clear); Bilirubin,Urine Negative (Negative); Blood,Urine Negative (Negative); Color,Urine Light Yellow; Glucose,Urine (UA) Negative (Negative); Ketones,Urine Negative (Negative); Leukocyte Esterase,Urine Negative (Negative); Nitrite,Urine Negative (Negative); Protein,Urine Negative (Negative); Specific Gravity,Urine 1.017 (1.001-1.035); Urobilinogen,Urine <2.0 mg/dL (<2.0)
[2024-06-28] MEDS: HYDROcodone/APAP 5-325MG 1 EACH TAB PO STA (22:33)
[2024-06-28] MEDS: SODIUM CHLORIDE 0.9% 1,000 ML IV SCH (22:34)
[2024-06-29] MEDS: IPRATROPIUM-ALBUTEROL 3 ML NEB INHALATION SCH (08:54)
[2024-06-29] MEDS ORDERED: IPRATROPIUM-ALBUTEROL 3 ML NEB INHALATION SCH (12:00)
[2024-06-29] MEDS ORDERED: ALPRAZolam 0.25 MG TAB PO PRN (12:49)
[2024-06-29] MEDS: ENOXAPARIN 40 MG/0.4 ML SYRINGE SQ SCH (14:06)
[2024-06-29] MEDS: ESCITALOPRAM 10 MG TAB PO SCH (14:07)
[2024-06-29] MEDS: ASPIRIN 81 MG PO SCH (14:07)
--- NOTE | 2024-06-29 14:23 | P.CNNES ---
History of Present Illness Consult date: 06/29/24 Requesting physician: Rafat Sethi Reason for Consult: hallucination History of Present Illness: This is an 84-year-old woman who presents to the emergency department because of altered mental status. Patient does not seem to be reliable historian. She states that she recently she has been feeling depressed and is having crying episode. She feels she feels depressed that that that she wants to . She denies any plans about hurting herself. Denies any thoughts about hurting others or any plans. She stated that she has been feeling that way since March 2024. Recently she is having a hard time recalling her kids name for the last 2 weeks. She stated that she slid out of her sister's car about 2 months ago in which her foot got stuck but denies any head trauma. Denies any history of seizure. Denies any history of stroke. Denies any focal weakness, numbness, visual disturbance. Some of the workup during this hospital visit consisted of: CBC with differential is unremarkable Chemistry panel is unremarkable Urine analysis is normal. CT of the head is reported as no acute intracranial process. I personally reviewed the CT and agree with the report. I feel the patient has moderate atrophy over the bilateral frontal, parietal and temporal region. Review of Systems As per HPI. 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, hypertension, hyperlipidemia, obesity History of Any Multi-Drug Resistant Organisms: None Reported Past Surgical History: Appendectomy, Breast Surgery, Hernia Repair, Hysterectomy, Tubal Ligation Past Anesthesia/Blood Transfusion Reactions: No Reported Reaction Past Psychological History: Anxiety Past Alcohol Use History: None Reported Past Drug Use History: None Reported - Past Family History Sister(s) Family Medical History: Cancer, Coronary Artery Disease (CAD), Neurologic Dis order Additional Family Medical History / Comment(s): colon cancer, 2nd sister with MS Medications and Allergies Home Medications Medication Instructions Recorded Confirmed Type ALPRAZolam [Xanax] 0.25 mg PO DAILY PRN 11/08/17 06/28/24 History Aspirin [Adult Low Dose Aspirin EC] 81 mg PO DAILY 11/08/17 06/28/24 History Mirabegron [Myrbetriq] 50 mg PO DAILY 11/08/17 06/28/24 History Simvastatin [Zocor] 20 mg PO HS 11/08/17 06/28/24 History Albuterol Inhaler [Ventolin Hfa 2 puff INHALATION RT-Q6H PRN 06/28/24 06/28/24 History Inhaler] Arformoterol Tartrate 15 mcg INHALATION RT-BID 06/28/24 06/28/24 History Budesonide [Pulmicort] 0.5 mg INHALATION RT-BID 06/28/24 06/28/24 History Escitalopram [Lexapro] 10 mg PO DAILY 06/28/24 06/28/24 History Solifenacin Succinate 10 mg PO DAILY 06/28/24 06/28/24 History Allergies Allergy/AdvReac Type Severity Reaction Status Date / Time Sulfa (Sulfonamide Allergy dry mouth Verified 06/28/24 19:34 Antibiotics) with difficulty swallowing Physical Examination - Vital Signs Vital Signs: Vital Signs Temp Pulse Resp BP Pulse Ox 06/29/24 11:52 87 06/29/24 11:42 85 06/29/24 11:00 89 20 99 06/29/24 10:00 90 16 100 06/29/24 09:05 85 06/29/24 09:00 85 16 91 L 06/29/24 08:56 84 06/29/24 08:02 82 24 136/72 91 L 06/29/24 06:54 87 18 136/72 99 06/29/24 02:07 89 18 94 L 06/28/24 22:21 99 18 126/58 06/28/24 18:09 100 18 125/85 95 06/28/24 16:24 98.7 F 98 18 158/72 96 Intake and Output 06/28/24 06/29/24 06/29/24 22:59 06:59 14:59 Other: Weight 99.79 kg GENERAL: The patient is lying in bed and is not in acute distress. Lung: Has moderate wheezing without auscultation. NEUROLOGICAL: Higher mental function: The patient is awake, alert, oriented to self, place and time. Patient is following commands. No aphasia and no neglect. Cranial nerves: The pupils are round, equal and reactive to light and accommodation. Visual verma are full to confrontation throughout. Extraocular movement is intact no nystagmus is noted. Facial sensation is normal to touch throughout. The facial strength is normal throughout. Hearing is mild to moderate decreased bilaterally to hand rub. Tongue is midline and moved [id number] without any difficulty. No dysarthria is noted. Shoulder shrug is normal bilaterally. Motor: The strength is 5 over 5 throughout. Normal tone and bulk. Cerebellum: Normal finger to nose heel to chin bilaterally. Sensation: Sensation is normal to touch throughout. Reflexes (right/left): 2+ throughout. Plantars are mute bilaterally. Results - Laboratory Findings CBC and BMP: 06/28/24 16:47 06/28/24 16:47 Assessment and Plan Assessment: This is an 84-year-old woman who present emergency department because of altered mental status. She stated that that in the last 2 weeks she is having difficulty remembering her kids name. She also stated that since March 2024 she has been feeling depressed and wishes to that she is . She denies any plans. Altered mental status and possible underlying dementia rule out pseudodementia as a result of depression versus neurodegerative disorder Depression Suicidal ideation Respiratory distress and the patient is wheezing patient has underlying history of asthma Plan: I ordered routine EEG to rule out any discharges or seizure Ordered MRI of the brain Ordered TSH, vitamin B12, folate, ammonia level, RPR Recommend neuropsych evaluation as an outpatient for her underlying dementia Psychiatry is consulted Will defer the rest of the medical management to primary and other specialist Thank you for the consultation. Dr. Issa will resume neurology service tomorrow A.M. Time with Patient: Greater than 30
[2024-06-29] MEDS: BUDESONIDE 0.5 MG/2 ML NEBU INHALATION SCH (15:41)
[2024-06-29] MEDS: FORMOTEROL FUMARATE 20 MCG/2 ML NEBU INHALATION SCH (15:42)
[2024-06-29] MEDS: NON FORMULARY DRUG (Mirabegron [Myrbetriq] 50 MG Tab.Er.24h) PO SCH (16:59)
--- NOTE | 2024-06-29 17:26 | P.CN ---
Psychiatric Consult - . Consult date: 06/29/24 Consult:: 06/29/24 17:03 IDENTIFYING DATA: This patient is a 84-year-old female REASON FOR REFERRAL: Psychiatry was consulted for delirium versus dementia HISTORY OF PRESENT ILLNESS: The patient presented to the hospital due to altered mental status. Per the triage note, patient has been "talking to people not present" since noon today. Patient's psychotropic medications include Xanax 0.25 mg when necessary and Lexapro 10 mg daily. Currently, she is also on Risperdal 0.5 mg at bedtime which was just started recently. Her son Gonzalo was with her bedside and said that she has been more alert and oriented in the mornings but becomes more confused and stating that there are "girls in the home" from the afternoon onwards. He says these instances of hallucinations and paranoia have been occurring over the past 2 months. He denies any agitation or occurrences where she has expressed concerns for her safety. Patient was seen bedside this evening. She is somewhat tangential. A&Ox1 to self. She says that her mood is "really good "and that she is hoping that "God keeping me alive". Patient does not express any passive or active suicidal ideation. She admits that at times when she is upset she states things about wanting to but that she is very much hoping that she stays alive longer. She spontaneously says "I'm a good person. I know that." She enjoys spending time with her children. She endorses sleeping well and eating well. She says that her son helps in caring for her. Patient expresses that she hears someone upstairs and knows that her son Mati is keeping some girl up there. She believes others are denying it because they do not want her to know about their affairs. At this time patient denies any suicidal or homicidal ideations, intent or plan. Patient denies any substance use. PAST PSYCHIATRIC HISTORY: Patient is currently on Lexapro daily and Xanax when necessary. Patient & son deny any previous psychiatric hospitalizations. Patient and son deny any psychiatric outpatient follow-up. Patient & son deny any history of suicide attempts in the past. PAST MEDICAL HISTORY: Past Medical History: Cancer, COPD, GI Bleed, Hyperlipidemia, Hypertension Additional Past Medical History / Comment(s): Colon cancer, iron loss anemia, advanced COPD with chronic hypoxic respiratory failure, hypertension, hyperlipidemia, obesity History of Any Multi-Drug Resistant Organisms: None Reported Past Surgical History: Appendectomy, Breast Surgery, Hernia Repair, Hysterectomy, Tubal Ligation Past Anesthesia/Blood Transfusion Reactions: No Reported Reaction Past Psychological History: Anxiety Past Alcohol Use History: None Reported Past Drug Use History: None Reported ALLERGIES: as per EMR. CHEMICAL DEPENDENCY HISTORY: as per HPI. FAMILY PSYCHIATRIC/SUBSTANCE USE HISTORY: None reported SOCIAL HISTORY: patient says that her has and that her son Gonzalo has been living with her and helping care for her. She says she has 4 sons. MENTAL STATUS EXAM: General Appearance: Patient appears to be stated age is alert, pleasant, and cooperative. Patient appears to have fair hygiene and grooming wearing hospital gown with good eye contact. Behavior: Patient is calmly lying in bed without any agitated behavior. Speech: Patient's speech is fluent and nonpressured. Mood/Affect: Patient reports their mood is "good", affect is congruent Suicidality/Homicidality: Patient denies having any suicidal or homicidal ideation intent or plan. Perceptions: Patient endorses auditory hallucinations Though content/process: Tangential, mild paranoia regarding girl she hears Memory and concentration: AOX1, poor Judgment and insight: poor MOCA results: 07/19. She was aware when she did not know the answer. Patient was not confabulating. 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 Patient's perceptual disturbances are likely secondary to delirium. -Delirium precautions recommended with patient including - avoiding use of narcotics and ACTUARIAL ASSOCIATE sedatives, limit anticholinergic medications when possible, frequent re-orientation, minimize use of restraints, open window shades during the day and close them at night -Would recommend the following medication changes/additions: Discontinue Xanax Continue Risperdal 0.5 mg qHS for delirium. Discussed risks, side effects, and benefits. Including BBW of early mortality. Continue Lexapro 10 mg daily for anxiety Continue medical management to treat potential underlying causes for delirium -Patient & son express agreement with above plan. Discussed considering guardianship -Communicated plan to patient's nurse -Psychiatry will continue to follow along -Please contact with any questions.
--- NOTE | 2024-06-29 20:02 | P.HPIM ---
History of Present Illness H&P Date: 06/29/24 Chief Complaint: Altered mentation 84-year-old patient, follows with Dr. Zaidi. Chronic medical conditions include COPD, hyperlipidemia, hypertension, colon cancer, COPD with chronic hypoxic respiratory failure,. Patient able to answer questions but really cannot give any detailed history. Per the EMS report the family told the EMS that patient has been altered since taking her morning medications. Patient speaking to about people not present at times. Patient uses home oxygen 2 L at all times. Patient denies any pain. Appetite is fair. She does tell me she was talking to some people behind her including a small girl. Were not present in the room. Otherwise appears rather comfortable Review of systems: GEN.: None EYES: None HEENT: None NECK: None RESPIRATORY: None CARDIOVASCULAR: None GASTROINTESTINAL: None GENITOURINARY: None MUSCULOSKELETAL: Some joint pains LYMPHATICS: None HEMATOLOGICAL: None PSYCHIATRY: Visual and auditory hallucinations above NEUROLOGICAL: None Social history: Apparently lives with her 2 sons. Smoked for 15 years stopped in 2009. 1 pack a day. No alcohol reported. Physical examination: VITAL SIGNS: 98.7, 98, 18, 158 x 72, 96% 2 L upon presentation GENERAL: BMI 40.2, reclining bed awake not in distress. EYES: Pupils equal. Conjunctiva kylie l. HEENT: External appearance of nose and ears normal, oral cavity grossly normal. Some decreased hearing NECK: JVD not raised; masses not palpable. HEART: First and second heart sounds are normal; no edema. LUNGS: Respiratory rate normal; clear to auscultation. ABDOMEN: Soft, nontender, liver spleen not palpable, no masses palpable. PSYCH: Patient is able to hold a simple conversation. She talks about people standing behind her including a young girl. In talking to them. l. MUSCULOSKELETAL:No Clubbing/cyanosis;muscles-grossly intact OA NEUROLOGICAL: Cranial nerves grossly intact; no facial asymmetry, power and sensation grossly intact. LYMPHATICS: No lymph nodes palpable in the axilla and neck INVESTIGATIONS, reviewed in the clinical context: June 28, 2024: White count 7.3 hemoglobin 12.6 platelets 271 sodium 139 potassium 3.9 creatinine 0.91 EKG tracing personally reviewed by me-sinus tachycardia. CT brain: Without contrast unremarkable Chest x-ray film personally reviewed by me-nonspecific Assessment plan: -New onset of auditory and visual hallucinations. In the ER patient told me about people behind her including a girl. Not listening to her. Add Risperdal 0.5 mg nightly. Psychiatry consulted -Anxiety and depression disorder not otherwise specified Lexapro Psychiatry consulted -Neurocognitive disorder -Chronic urinary incontinence Diapers. Myrbetriq. -Hypercholesteremia Zocor -COPD in a previous smoker Pulmicort. Ventolin as needed -Full code Consultations made to psychiatry and neurology. 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, hypertension, hyperlipidemia, obesity History of Any Multi-Drug Resistant Organisms: None Reported Past Surgical History: Appendectomy, Breast Surgery, Hernia Repair, Hysterectomy, Tubal Ligation Past Anesthesia/Blood Transfusion Reactions: No Reported Reaction Past Psychological History: Anxiety Past Alcohol Use History: None Reported Past Drug Use History: None Reported - Past Family History Sister(s) Family Medical History: Cancer, Coronary Artery Disease (CAD), Neurologic Disorder Additional Family Medical History / Comment(s): colon cancer, 2nd sister with MS Medications and Allergies Home Medications Medication Instructions Recorded Confirmed Type ALPRAZolam [Xanax] 0.25 mg PO DAILY PRN 11/08/17 06/28/24 History Aspirin [Adult Low Dose Aspirin EC] 81 mg PO DAILY 11/08/17 06/28/24 History Mirabegron [Myrbetriq] 50 mg PO DAILY 11/08/17 06/28/24 History Simvastatin [Zocor] 20 mg PO HS 11/08/17 06/28/24 History Albuterol Inhaler [Ventolin Hfa 2 puff INHALATION RT-Q6H PRN 06/28/24 06/28/24 History Inhaler] Arformoterol Tartrate 15 mcg INHALATION RT-BID 06/28/24 06/28/24 History Budesonide [Pulmicort] 0.5 mg INHALATION RT-BID 06/28/24 06/28/24 History Escitalopram [Lexapro] 10 mg PO DAILY 06/28/24 06/28/24 History Solifenacin Succinate 10 mg PO DAILY 06/28/24 06/28/24 History Allergies Allergy/AdvReac Type Severity Reaction Status Date / Time Sulfa (Sulfonamide Allergy dry mouth Verified 06/28/24 19:34 Antibiotics) with difficulty swallowing Physical Exam Vitals: Vital Signs Temp Pulse Resp BP Pulse Ox 06/29/24 11:52 87 06/29/24 11:42 85 06/29/24 11:00 89 20 99 06/29/24 10:00 90 16 100 06/29/24 09:05 85 06/29/24 09:00 85 16 91 L 06/29/24 08:56 84 06/29/24 08:02 82 24 136/72 91 L 06/29/24 06:54 87 18 136/72 99 06/29/24 02:07 89 18 94 L 06/28/24 22:21 99 18 126/58 06/28/24 18:09 100 18 125/85 95 06/28/24 16:24 98.7 F 98 18 158/72 96 Intake and Output 06/28/24 06/29/24 06/29/24 22:59 06:59 14:59 Other: Weight 99.79 kg Results CBC & Chem 7: 06/28/24 16:47 06/28/24 16:47
[2024-06-29] MEDS ORDERED: QUEtiapine 25 MG TAB PO SCH (21:00)
[2024-06-29] MEDS: ATORVASTATIN 10 MG TAB PO SCH (21:14)
[2024-06-29] MEDS: TROSPIUM CHLORIDE 20 MG TABLET PO SCH (21:14)
[2024-06-29] MEDS: NYSTATIN 100,000 UNIT/GM POWD 15 GM TOPICAL SCH (21:14)
[2024-06-29] MEDS: risperiDONE 0.5 MG TAB PO SCH (21:14)
[2024-06-29] MEDS: CALCIUM CARBONATE 500 MG CHEWABLE PO PRN (21:20)
[2024-06-30] MEDS: ZINC OXIDE PASTE (Z-GUARD) 1 APPLIC TOPICAL SCH (10:27)
--- NOTE | 2024-06-30 12:41 | P.PN ---
Progress Note - Text Progress Note Date: 06/30/24 Chief Complaint: Altered mentation 84-year-old patient, follows with Dr. Zaidi. Chronic medical conditions include COPD, hyperlipidemia, hypertension, colon cancer, COPD with chronic hypoxic respiratory failure,. Patient able to answer questions but really cannot give any detailed history. Per the EMS report the family told the EMS that patient has been altered since taking her morning medications. Patient speaking to about people not present at times. Patient uses home oxygen 2 L at all times. Patient denies any pain. Appetite is fair. She does tell me she was talking to some people behind her including a small girl. Were not present in the room. Otherwise appears rather comfortable June 30: Admitted for hallucinations. Put on Risperdal 0.5 mg nightly. Last night patient again was restless. Will increase Risperdal to 1 mg nightly. Did eat her breakfast. Still having some hallucinations. Active Medications Albuterol Sulfate (Albuterol Nebulized 2.5 Mg/3 Ml) 2.5 mg INHALATION RT-Q6H PRN PRN Reason: Shortness Of Breath Albuterol/Ipratropium (Ipratropium-Albuterol 3 Ml Neb) 3 ml INHALATION RT-QID [facility] Last Admin: 06/30/24 11:45 Dose: Not Given Aspirin (Aspirin 81 Mg) 81 mg PO DAILY [facility] Last Admin: 06/30/24 10:26 Dose: 81 mg Atorvastatin Calcium (Atorvastatin 10 Mg Tab) 10 mg PO HS [facility] Last Admin: 06/29/24 21:14 Dose: 10 mg Budesonide (Budesonide 0.5 Mg/2 Ml Nebu) 0.5 mg INHALATION RT-BID [facility] Last Admin: 06/30/24 08:21 Dose: 0.5 mg Calcium Carbonate/Glycine (Calcium Carbonate 500 Mg Chewable) 1,000 mg PO QID PRN PRN Reason: Heartburn Last Admin: 06/29/24 21:20 Dose: 1,000 mg Enoxaparin Sodium (Enoxaparin 40 Mg/0.4 Ml Syringe) 40 mg SQ DAILY [facility] Last Admin: 06/30/24 10:26 Dose: 40 mg Escitalopram Oxalate (Escitalopram 10 Mg Tab) 10 mg PO DAILY [facility] Last Admin: 06/30/24 10:26 Dose: 10 mg Formoterol Fumarate (Formoterol Fumarate 20 Mcg/2 Ml Nebu) 20 mcg INHALATION RT-BID [facility] Last Admin: 06/30/24 08:21 Dose: 20 mcg Naloxone HCl (Naloxone 0.4 Mg/Ml 1 Ml Vial) 0.2 mg IV Q2M PRN PRN Reason: Opioid Reversal Non-Formulary Medication (Mirabegron [Myrbetriq]) 50 mg PO DAILY [facility] Last Admin: 06/30/24 10:27 Dose: Not Given Nystatin (Nystatin 100,000 Unit/Gm Powd 15 Gm) 1 applic TOPICAL BID [facility]; Protocol Last Admin: 06/30/24 10:29 Dose: 1 applic Petrolatum (Zinc Oxide Paste (Z-Guard) 1 Applic) 1 applic TOPICAL DAILY [facility]; Protocol Last Admin: 06/30/24 10:27 Dose: 1 applic Risperidone (Risperidone 1 Mg Tab) 1 mg PO HS [facility] Trospium (Trospium Chloride 20 Mg Tablet) 20 mg PO BID [facility] Last Admin: 06/30/24 10:26 Dose: 20 mg Social history: Apparently lives with her 2 sons. Smoked for 15 years stopped in 2009. 1 pack a day. No alcohol reported. Physical examination: VITAL SIGNS: 97.8, 98, 16, 138 x 86, 98% room air GENERAL: Laying in bed. Legs over the rail. EYES: Pupils equal. Conjunctiva kylie l. HEENT: External appearance of nose and ears normal, oral cavity grossly normal. Some decreased hearing NECK: JVD not raised; masses not palpable. HEART: First and second heart sounds are normal; no edema. LUNGS: Respiratory rate normal; clear to auscultation. ABDOMEN: Soft, nontender, liver spleen not palpable, no masses palpable. PSYCH: Patient is able to hold a simple conversation. She is talking to people in the room not present MUSCULOSKELETAL:No Clubbing/cyanosis;muscles-grossly intact OA NEUROLOGICAL: Cranial nerves grossly intact; no facial asymmetry, power and sensation grossly intact. Moving all 4 limbs INVESTIGATIONS, reviewed in the clinical context: B12 328 folate 6.3 TSH 2.9. Treponema pallidum antibody nonreactive UA: Negative June 28, 2024: White count 7.3 hemoglobin 12.6 platelets 271 sodium 139 potassium 3.9 creatinine 0.91 EKG tracing personally reviewed by me-sinus tachycardia. CT brain: Without contrast unremarkable Chest x-ray film personally reviewed by me-nonspecific Assessment plan: -New onset of auditory and visual hallucinations. In the ER patient told me about people behind her including a girl. Not listening to her.: Uncontrolled Increase Risperdal to 1 mg nightly Psychiatry following -Anxiety and depression disorder not otherwise specified Lexapro Psychiatry following -Neurocognitive disorder -Chronic urinary incontinence Diapers. Myrbetriq. -Hypercholesteremia Zocor -COPD in a previous smoker Pulmicort. Ventolin as needed -Full code Increase Risperdal. Social work on the case 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, hypertension, hyperlipidemia, obesity History of Any Multi-Drug Resistant Organisms: None Reported Past Surgical History: Appendectomy, Breast Surgery, Hernia Repair, Hysterectomy, Tubal Ligation Past Anesthesia/Blood Transfusion Reactions: No Reported Reaction Past Psychological History: Anxiety Past Alcohol Use History: None Reported Past Drug Use History: None Reported
[2024-06-30] MEDS: LORazepam 2 MG/ML INJ IV STA (20:19)
[2024-06-30] MEDS: risperiDONE 1 MG TAB PO SCH (22:09)
[2024-07-01] MEDS: TAMSULOSIN 0.4 MG CAP.ER.24H PO SCH (12:55)
--- NOTE | 2024-07-01 15:21 | P.PN ---
Progress Note - Text Progress Note Date: 07/01/24 Chief Complaint: Altered mentation 84-year-old patient, follows with Dr. Zaidi. Chronic medical conditions include COPD, hyperlipidemia, hypertension, colon cancer, COPD with chronic hypoxic respiratory failure,. Patient able to answer questions but really cannot give any detailed history. Per the EMS report the family told the EMS that patient has been altered since taking her morning medications. Patient speaking to about people not present at times. Patient uses home oxygen 2 L at all times. Patient denies any pain. Appetite is fair. She does tell me she was talking to some people behind her including a small girl. Were not present in the room. Otherwise appears rather comfortable June 30: Admitted for hallucinations. Put on Risperdal 0.5 mg nightly. Last night patient again was restless. Will increase Risperdal to 1 mg nightly. Did eat her breakfast. Still having some hallucinations. July 01: Patient Risperdal was increased to 1 mg last night. Patient did not still sleep well. Still hallucinating. Risperdal today increased to 2 mg at night. Patient still somewhat delirious. Oral intake about 25%. Will add Risperdal 0.125 mg for the morning. Active Medications Albuterol Sulfate (Albuterol Nebulized 2.5 Mg/3 Ml) 2.5 mg INHALATION RT-Q6H PRN PRN Reason: Shortness Of Breath Albuterol/Ipratropium (Ipratropium-Albuterol 3 Ml Neb) 3 ml INHALATION RT-QID [facility] Last Admin: 07/01/24 11:57 Dose: 3 ml Aspirin (Aspirin 81 Mg) 81 mg PO DAILY [facility] Last Admin: 07/01/24 10:24 Dose: 81 mg Atorvastatin Calcium (Atorvastatin 10 Mg Tab) 10 mg PO HS [facility] Last Admin: 06/30/24 23:24 Dose: Not Given Budesonide (Budesonide 0.5 Mg/2 Ml Nebu) 0.5 mg INHALATION RT-BID [facility] Last Admin: 07/01/24 08:30 Dose: 0.5 mg Calcium Carbonate/Glycine (Calcium Carbonate 500 Mg Chewable) 1,000 mg PO QID PRN PRN Reason: Heartburn Last Admin: 06/29/24 21:20 Dose: 1,000 mg Enoxaparin Sodium (Enoxaparin 40 Mg/0.4 Ml Syringe) 40 mg SQ DAILY [facility] Last Admin: 07/01/24 10:24 Dose: 40 mg Escitalopram Oxalate (Escitalopram 10 Mg Tab) 10 mg PO DAILY [facility] Last Admin: 07/01/24 10:24 Dose: 10 mg Formoterol Fumarate (Formoterol Fumarate 20 Mcg/2 Ml Nebu) 20 mcg INHALATION RT-BID [facility] Last Admin: 07/01/24 08:30 Dose: 20 mcg Naloxone HCl (Naloxone 0.4 Mg/Ml 1 Ml Vial) 0.2 mg IV Q2M PRN PRN Reason: Opioid Reversal Non-Formulary Medication (Mirabegron [Myrbetriq]) 50 mg PO DAILY [facility] Last Admin: 07/01/24 10:25 Dose: Not Given Nystatin (Nystatin 100,000 Unit/Gm Powd 15 Gm) 1 applic TOPICAL BID [facility]; Protocol Last Admin: 07/01/24 10:26 Dose: 1 applic Petrolatum (Zinc Oxide Paste (Z-Guard) 1 Applic) 1 applic TOPICAL DAILY [facility]; Protocol Last Admin: 07/01/24 13:10 Dose: 1 applic Risperidone (Risperidone 2 Mg Tab) 2 mg PO HS [facility] Tamsulosin HCl (Tamsulosin 0.4 Mg Cap.Er.24h) 0.4 mg PO AC-BID [facility] Last Admin: 07/01/24 12:55 Dose: 0.4 mg Trospium (Trospium Chloride 20 Mg Tablet) 20 mg PO BID [facility] Last Admin: 07/01/24 10:24 Dose: 20 mg Social history: Apparently lives with her 2 sons. Smoked for 15 years stopped in 2009. 1 pack a day. No alcohol reported. Physical examination: VITAL SIGNS: 97.8, 109, 12, 138 2042, 92% 4 L at GENERAL: Laying in bed. Somewhat delirious EYES: Pupils equal. Conjunctiva kylie l. HEENT: External appearance of nose and ears normal, oral cavity grossly normal. Some decreased hearing NECK: JVD not raised; masses not palpable. HEART: First and second heart sounds are normal; no edema. LUNGS: Respiratory rate normal; clear to auscultation. ABDOMEN: Soft, nontender, liver spleen not palpable, no masses palpable. PSYCH: Delirious MUSCULOSKELETAL:No Clubbing/cyanosis;muscles-grossly intact OA NEUROLOGICAL: Cranial nerves grossly intact; no facial asymmetry, power and sensation grossly intact. Moving all 4 limbs INVESTIGATIONS, reviewed in the clinical context: B12 328 folate 6.3 TSH 2.9. Treponema pallidum antibody nonreactive UA: Negative June 28, 2024: White count 7.3 hemoglobin 12.6 platelets 271 sodium 139 potassium 3.9 creatinine 0.91 EKG tracing personally reviewed by me-sinus tachycardia. CT brain: Without contrast unremarkable Chest x-ray film personally reviewed by me-nonspecific Assessment plan: -New onset of auditory and visual hallucinations. In the ER patient told me about people behind her including a girl. Not listening to her.: Uncontrolled Increase Risperdal to 2 mg nightly. Add 0.125 mg in the morning. 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 Myrbetriq. -Hypercholesteremia Zocor -COPD in a previous smoker Pulmicort. Ventolin as needed -Full code Increase Risperdal to 2 mg nightly. Add 0.125 mg in the daytime. Follow closely 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, hypertension, hyperlipidemia, obesity History of Any Multi-Drug Resistant Organisms: None Reported Past Surgical History: Appendectomy, Breast Surgery, Hernia Repair, Hysterectomy, Tubal Ligation Past Anesthesia/Blood Transfusion Reactions: No Reported Reaction Past Psychological History: Anxiety Past Alcohol Use History: None Reported Past Drug Use History: None Reported
[2024-07-01] MEDS: LORazepam 2 MG/ML INJ IV ONE (15:48)
[2024-07-01 17:23] VITALS: BMI 40.2
--- NOTE | 2024-07-01 17:35 | MR ---
EXAMINATION TYPE: MR brain wo con DATE OF EXAM: 07/01/2024 5:11 PM COMPARISON: 06/28/2024. CLINICAL INDICATION: Female, 84 years old with history of altered mental status;, AMS TECHNIQUE: Multi planar, multi sequence imaging was performed through the brain including: T1, T2, In version recovery, Diffusion weighted imaging, and gradient echo imaging. No gadolinium was given. FINDINGS: CSF attenuating r area with mild mass effect on the adjacent cerebrum on the left parietal/ posterior frontal lobe measuring 31 x 20 mm. Mild cerebral atrophy with proportional dilation of vent ricular system. Scattered foci of high T2 signal intensity are seen within the periventricular whit e matter. Midline structures show no abnormality. Diffusion-weighted imaging shows no evidence of res tricted diffusion. The susceptibility weighted images do not reveal any evidence for micro-hemorrhage . The bone marrow signal is within normal limits. Paranasal sinuses and mastoid air cells: No significant paranasal sinus disease. Visualized orbits: Bilaterally aphakia. IMPRESSION: 1. No evidence of intracranial mass or acute/subacute infarct. 2. Nonspecific white matter changes, likely secondary to small vessel ischemic disease. 3. Suspected arachnoid cyst overlying the left cerebrum parietal/posterior frontal lobe. [facility], , 07/01/2024 5:33 PM
[2024-07-01] MEDS: risperiDONE 2 MG TAB PO SCH (22:56)
[2024-07-02] MEDS: risperiDONE 0.25 MG TAB PO SCH (09:08)
--- NOTE | 2024-07-02 16:42 | P.PN ---
Progress Note - Text Progress Note Date: 07/02/24 Chief Complaint: Altered mentation 84-year-old patient, follows with Dr. Zaidi. Chronic medical conditions include COPD, hyperlipidemia, hypertension, colon cancer, COPD with chronic hypoxic respiratory failure,. Patient able to answer questions but really cannot give any detailed history. Per the EMS report the family told the EMS that patient has been altered since taking her morning medications. Patient speaking to about people not present at times. Patient uses home oxygen 2 L at all times. Patient denies any pain. Appetite is fair. She does tell me she was talking to some people behind her including a small girl. Were not present in the room. Otherwise appears rather comfortable June 30: Admitted for hallucinations. Put on Risperdal 0.5 mg nightly. Last night patient again was restless. Will increase Risperdal to 1 mg nightly. Did eat her breakfast. Still having some hallucinations. July 01: Patient Risperdal was increased to 1 mg last night. Patient did not still sleep well. Still hallucinating. Risperdal today increased to 2 mg at night. Patient still somewhat delirious. Oral intake about 25%. Will add Risperdal 0.125 mg for the morning. July 02: Saw the patient this afternoon. Patient get the morning smaller dose of Risperdal. Spoke to the nurse about 4:30 PM. Patient did rather fair during the daytime. Had about 50% of her breakfast and dinner. Patient to be kept awake until p.m. dose medications. Not to be woken up from then till 6 AM. I called patient's son Hanna and spoke to him on the phone. Give them an update. Lets see how patient does i overnight tomorrow morning. Also patient Sanctura is being discontinued because of its anticholinergic side effect. That could be contributing to patient's symptoms and hallucinations. Also spoke at length to the nurse. Total time spent about 50 minutes with over 30 minutes of discussion Active Medications Albuterol Sulfate (Albuterol Nebulized 2.5 Mg/3 Ml) 2.5 mg INHALATION RT-Q6H PRN PRN Reason: Shortness Of Breath Albuterol/Ipratropium (Ipratropium-Albuterol 3 Ml Neb) 3 ml INHALATION RT-QID [facility] Last Admin: 07/02/24 16:15 Dose: 3 ml Aspirin (Aspirin 81 Mg) 81 mg PO DAILY [facility] Last Admin: 07/02/24 09:06 Dose: 81 mg Atorvastatin Calcium (Atorvastatin 10 Mg Tab) 10 mg PO HS [facility] Last Admin: 07/01/24 22:56 Dose: Not Given Budesonide (Budesonide 0.5 Mg/2 Ml Nebu) 0.5 mg INHALATION RT-BID [facility] Last Admin: 07/02/24 09:07 Dose: 0.5 mg Calcium Carbonate/Glycine (Calcium Carbonate 500 Mg Chewable) 1,000 mg PO QID PRN PRN Reason: Heartburn Last Admin: 06/29/24 21:20 Dose: 1,000 mg Enoxaparin Sodium (Enoxaparin 40 Mg/0.4 Ml Syringe) 40 mg SQ DAILY [facility] Last Admin: 07/02/24 09:09 Dose: 40 mg Escitalopram Oxalate (Escitalopram 10 Mg Tab) 10 mg PO DAILY [facility] Last Admin: 07/02/24 09:06 Dose: 10 mg Formoterol Fumarate (Formoterol Fumarate 20 Mcg/2 Ml Nebu) 20 mcg INHALATION RT-BID [facility] Last Admin: 07/02/24 09:07 Dose: 20 mcg Naloxone HCl (Naloxone 0.4 Mg/Ml 1 Ml Vial) 0.2 mg IV Q2M PRN PRN Reason: Opioid Reversal Non-Formulary Medication (Mirabegron [Myrbetriq]) 50 mg PO DAILY [facility] Last Admin: 07/02/24 09:19 Dose: Not Given Nystatin (Nystatin 100,000 Unit/Gm Powd 15 Gm) 1 applic TOPICAL BID [facility]; Protocol Last Admin: 07/02/24 09:09 Dose: 1 applic Petrolatum (Zinc Oxide Paste (Z-Guard) 1 Applic) 1 applic TOPICAL DAILY [facility]; Protocol Last Admin: 07/02/24 11:06 Dose: 1 applic Risperidone (Risperidone 2 Mg Tab) 2 mg PO HS [facility] Last Admin: 07/01/24 22:56 Dose: Not Given Risperidone (Risperidone 0.25 Mg Tab) 0.125 mg PO DAILY [facility] Last Admin: 07/02/24 09:08 Dose: 0.125 mg Tamsulosin HCl (Tamsulosin 0.4 Mg Cap.Er.24h) 0.4 mg PO AC-BID [facility] Last Admin: 07/02/24 09:06 Dose: 0.4 mg Social history: Apparently lives with her 2 sons. Smoked for 15 years stopped in 2009. 1 pack a day. No alcohol reported. Physical examination: VITAL SIGNS: 98, 102, 16, 104 x 67, 99% 2 L GENERAL: Up in a chair, a bit delirious this morning EYES: Pupils equal. Conjunctiva kylie l. HEENT: External appearance of nose and ears normal, oral cavity grossly normal. Some decreased hearing NECK: JVD not raised; masses not palpable. HEART: First and second heart sounds are normal; no edema. LUNGS: Respiratory rate normal; clear to auscultation. ABDOMEN: Soft, nontender, liver spleen not palpable, no masses palpable. PSYCH: Answering some questions MUSCULOSKELETAL:No Clubbing/cyanosis;muscles-grossly intact OA NEUROLOGICAL: Cranial nerves grossly intact; no facial asymmetry, power and sensation grossly intact. Moving all 4 limbs INVESTIGATIONS, reviewed in the clinical context: Brain MRI without contrast [July 01, 2024] nothing acute. No mass. Nonspecific white matter changes. B12 328 folate 6.3 TSH 2.9. Treponema pallidum antibody nonreactive UA: Negative June 28, 2024: White count 7.3 hemoglobin 12.6 platelets 271 sodium 139 potassium 3.9 creatinine 0.91 EKG tracing personally reviewed by me-sinus tachycardia. CT brain: Without contrast unremarkable Chest x-ray film personally reviewed by me-nonspecific Assessment plan: -New onset of auditory and visual hallucinations. In the ER patient told me about people behind her including a girl. Not listening to her.: Risperdal to 2 mg nightly. 0.125 mg in the morning. July 02: Sanctura being discontinued because of its side effect of a nticholinergic and TOOTH CUTTER PINION effect. 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 Myrbetriq. DC Sanctura -Hypercholesteremia Zocor -COPD in a previous smoker Pulmicort. Ventolin as needed -DNR [as per son Hanna] -Medical power of employee benefits attorney, son hanna Jett Continue with current dose of Risperdal. Stop Sanctura. Patient not to be disturbed from 10 PM to 6 AM. Patient is done better today. 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, hypertension, hyperlipidemia, obesity History of Any Multi-Drug Resistant Organisms: None Reported Past Surgical History: Appendectomy, Breast Surgery, Hernia Repair, Hysterectomy, Tubal Ligation Past Anesthesia/Blood Transfusion Reactions: No Reported Reaction Past Psychological History: Anxiety Past Alcohol Use History: None Reported Past Drug Use History: None Reported
--- NOTE | 2024-07-02 17:09 | P.PN ---
Subjective Progress Note Date: 07/02/[address] Patient initially seen by Dr[address] Duncan Perez. Please refer to his note for details Patient had presented with altered mental status, concerned about dementia. Has some depression features. Patient was seen for a follow-up. Patient is sitting in the recliner, in no acute distress. Patient is hard of hearing. Patient offers no complaints. Dr. Perez has recommended EEG, but not placed an order. No history of seizures. I spoke to patient's son Tad on the phone. He mentioned that patient came to the hospital because she complained of a bad headache and asked him to call 911. I reviewed EMS flowsheet, and it was mentioned that patient was having hallucinations, altered mental status but did not say anything about the headache. Patient's son agrees that she has slight memory disturbance, but she was holding conversation, trying to pay bills with him on , 2 days prior to arrival. She was able to make decisions knew what was going on, knew the people. She was trying to do house payments, able to feed herself. One of his friend comes over to give her a shower however. She knows everybody, but today when he came in, she said "I hope I know you", probably not recognizing her son. He is not sure as to the cause of acute worsening of mental orientation. Patient has been using walker for almost a year. Sometimes she uses the walker at home, but often she can manipulate inside the house without any device. Even the day she came in, she was having conversation, walking with a walker but she got worse overnight. Objective - Vital Signs Vital signs: Vital Signs Temp 98.3 F 07/02/24 07:53 Pulse 108 H 07/02/24 12:15 Resp 16 07/02/24 07:53 BP 106/58 07/02/24 07:53 Pulse Ox 96 07/02/24 07:53 FiO2 Intake & Output 07/01/24 07/02/24 07/02/24 18:59 06:59 18:59 Output Total 150 200 Balance -150 -200 Weight 99.79 kg Output: Urine 150 200 Straight 150 Other: Voiding Method Incontinent Incontinent Indwelling Catheter - Exam Patient is alert and awake, pleasantly confused. She is hard of hearing. She is coughing. Patient could not tell the current month or the year. Regarding the month, she started counting all the months from August through July and said the month is Sunday and then said Sunday. Patient knows that she lives in [facility] in [place]. She believes that she is in the school. Patient is alert and awake. Patient has no pronator drift. No myoclonic jerks. No ataxia for [id number] testing. Visual verma appears full. Patient has positive palmomental reflex, positive visual spatial apraxia. - Labs CBC & Chem 7: 06/28/24 16:47 06/28/24 16:47 Assessment and Plan Assessment: This is an 84-year-old woman who present emergency department because of altered mental status. She stated that that in the last 2 weeks she is having difficulty remembering her kids name. She also stated that since March 2024 she has been feeling depressed and wishes to that she is . She denies any plans. 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 Depression Suicidal ideation Respiratory distress and the patient is wheezing patient has underlying history of asthma Plan: Patient probably has developed dementia. There may be some component of pseudodementia of depression. No structural abnormality noted on the brain MRI. MRI of the brain revealed no evidence of intracranial mass or acute/subacute infarct. Nonspecific white matter changes, likely secondary to small vessel ischemic disease. Suspected arachnoid cyst overlying the left cerebrum parietal/posterior frontal lobe. I personally reviewed MRI, agree with the findings. No acute ischemic process. EEG rule out any epileptiform activity, evaluate for encephalopathy. Patient has no signs of infection therefore hold off on lumbar puncture at this time. B12 328, folate 6.30, TSH 2.93, ammonia < 9. RPR nonreactive. B12 level is borderline as well as folic acid. We will start B12 and folate replacement. 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 They recommended to discontinue Xanax. Continue Risperdal 0.5 mg at bedtime for delirium. Continue Lexapro 10 mg daily. Will defer the rest of the medical management to primary and other specialist Discussed with patient's son, nursing staff and PCP in detail.
[2024-07-02] MEDS: FOLIC ACID 1 MG TAB PO SCH (17:33)
[2024-07-02] MEDS: CYANOCOBALAMIN 1,000 MCG/ML 1 ML VIAL IM ONE (17:34)
[2024-07-03] MEDS: CYANOCOBALAMIN 500 MCG TAB PO SCH (10:31)
[2024-07-03] MEDS ORDERED: risperiDONE 0.25 MG TAB PO PRN (10:51)
--- NOTE | 2024-07-03 15:29 | P.PN ---
Progress Note - Text Progress Note Date: 07/03/24 IDENTIFYING DATA: Patient is an 84-year-old female REASON FOR CONSULT: Delirium versus dementia INTERVAL HISTORY: Patient seen and evaluated. She was A&Ox1 to self. Patient reports her memory has been off for some time now was exhibiting confusion throughout interview. She vehemently denied any SI/HI or AVH. Staff reported that patient 1 night ago was exhibiting auditory hallucinations however has not been exhibiting any of these symptoms today thus far. Patient's Risperdal was decreased to 1.5 mg tonight given the improvements in hallucinations and daily Risperdal was changed to as needed. MENTAL STATUS EXAM: General Appearance: Patient appears to be stated age. Patient appears to have fair hygiene and grooming wearing hospital gown with fair eye contact. Behavior: Patient is calmly lying in bed without any agitated behavior. Speech: Speech is low volume, raspy Mood/Affect: Mood is "okay" and affect is constricted Suicidality/Homicidality: Patient denies any suicidal or homicidal thoughts Perceptions: Patient denies any auditory or visual hallucinations did not appear internally preoccupied Though content/process: Superficially linear and logical Judgment and insight: Poor IMPRESSIONS: Delirium Anxiety PLAN: -At this time patient DOES NOT meet criteria for inpatient psychiatric admission. -Patient DOES NOT have decision making capacity at this time and is unable to reason through and communicate/appreciate the risks, benefits and alternatives to treatment. -Delirium precautions recommended with patient including - avoiding use of narcotics and ELECTROLYSIST sedatives, limit anticholinergic medications when possible, frequent re-orientation, minimize use of restraints, open window shades during the day and close them at night -Would recommend the following medication changes/additions: Agree with current medication adjustments, continue Risperdal 1.5 mg at bedtime for hallucinations, Lexapro 10 mg daily -Communicated plan to patient's nurse -Will continue to follow along -Please contact with any questions.
--- NOTE | 2024-07-03 17:40 | P.PN ---
Progress Note - Text Progress Note Date: 07/03/24 Chief Complaint: Altered mentation 84-year-old patient, follows with Dr. Zaidi. Chronic medical conditions include COPD, hyperlipidemia, hypertension, colon cancer, COPD with chronic hypoxic respiratory failure,. Patient able to answer questions but really cannot give any detailed history. Per the EMS report the family told the EMS that patient has been altered since taking her morning medications. Patient speaking to about people not present at times. Patient uses home oxygen 2 L at all times. Patient denies any pain. Appetite is fair. She does tell me she was talking to some people behind her including a small girl. Were not present in the room. Otherwise appears rather comfortable June 30: Admitted for hallucinations. Put on Risperdal 0.5 mg nightly. Last night patient again was restless. Will increase Risperdal to 1 mg nightly. Did eat her breakfast. Still having some hallucinations. July 01: Patient Risperdal was increased to 1 mg last night. Patient did not still sleep well. Still hallucinating. Risperdal today increased to 2 mg at night. Patient still somewhat delirious. Oral intake about 25%. Will add Risperdal 0.125 mg for the morning. July 02: Saw the patient this afternoon. Patient get the morning smaller dose of Risperdal. Spoke to the nurse about 4:30 PM. Patient did rather fair during the daytime. Had about 50% of her breakfast and dinner. Patient to be kept awake until p.m. dose medications. Not to be woken up from then till 6 AM. I called patient's son Hanna and spoke to him on the phone. Give them an update. Lets see how patient does i overnight tomorrow morning. Also patient Sanctura is being discontinued because of its anticholinergic side effect. That could be contributing to patient's symptoms and hallucinations. Also spoke at length to the nurse. Total time spent about 50 minutes with over 30 minutes of discussion and July 03: Patient a bit delirious this morning. Will change her morning dose of Risperdal to as needed. P.m. dose was changed to 1.5 mg. [facility] declined to [facility] the patient. With physical therapy patient walked about 6 feet. Hopefully patient will do better with today's change of medications. Spoke to social media strategist. Will speak to his son's about discharge planning. Patient was seen by psychiatrist today. She is okay with the current medications. Active Medications Albuterol Sulfate (Albuterol Nebulized 2.5 Mg/3 Ml) 2.5 mg INHALATION RT-Q6H PRN PRN Reason: Shortness Of Breath Albuterol/Ipratropium (Ipratropium-Albuterol 3 Ml Neb) 3 ml INHALATION RT-QID [facility] Last Admin: 07/03/24 15:53 Dose: 3 ml Aspirin (Aspirin 81 Mg) 81 mg PO DAILY [facility] Last Admin: 07/03/24 10:31 Dose: 81 mg Atorvastatin Calcium (Atorvastatin 10 Mg Tab) 10 mg PO HS [facility] Last Admin: 07/02/24 21:49 Dose: 10 mg Budesonide (Budesonide 0.5 Mg/2 Ml Nebu) 0.5 mg INHALATION RT-BID [facility] Last Admin: 07/03/24 08:08 Dose: 0.5 mg Calcium Carbonate/Glycine (Calcium Carbonate 500 Mg Chewable) 1,000 mg PO QID PRN PRN Reason: Heartburn Last Admin: 06/29/24 21:20 Dose: 1,000 mg Cyanocobalamin (Cyanocobalamin 500 Mcg Tab) 1,000 mcg PO DAILY [facility] Last Admin: 07/03/24 10:31 Dose: 1,000 mcg Enoxaparin Sodium (Enoxaparin 40 Mg/0.4 Ml Syringe) 40 mg SQ DAILY [facility] Last Admin: 07/03/24 10:31 Dose: 40 mg Escitalopram Oxalate (Escitalopram 10 Mg Tab) 10 mg PO DAILY [facility] Last Admin: 07/03/24 10:31 Dose: 10 mg Folic Acid (Folic Acid 1 Mg Tab) 1 mg PO DAILY [facility] Last Admin: 07/03/24 10:31 Dose: 1 mg Formoterol Fumarate (Formoterol Fumarate 20 Mcg/2 Ml Nebu) 20 mcg INHALATION RT-BID [facility] Last Admin: 07/03/24 08:08 Dose: 20 mcg Naloxone HCl (Naloxone 0.4 Mg/Ml 1 Ml Vial) 0.2 mg IV Q2M PRN PRN Reason: Opioid Reversal Non-Formulary Medication (Mirabegron [Myrbetriq]) 50 mg PO DAILY [facility] Last Admin: 07/03/24 10:31 Dose: Not Given Nystatin (Nystatin 100,000 Unit/Gm Powd 15 Gm) 1 applic TOPICAL BID [facility]; Protocol Last Admin: 07/03/24 10:32 Dose: 1 applic Petrolatum (Zinc Oxide Paste (Z-Guard) 1 Applic) 1 applic TOPICAL DAILY [facility]; Protocol Last Admin: 07/03/24 10:32 Dose: 1 applic Risperidone (Risperidone 0.25 Mg Tab) 0.125 mg PO DAILY PRN PRN Reason: Agitation Risperidone (Risperidone 1 Mg Tab) 1.5 mg PO HS [facility] Tamsulosin HCl (Tamsulosin 0.4 Mg Cap.Er.24h) 0.4 mg PO AC-BID [facility] Last Admin: 07/03/24 16:31 Dose: 0.4 mg Social history: Apparently lives with her 2 sons. Smoked for 15 years stopped in 2009. 1 pack a day. No alcohol reported. Physical examination: VITAL SIGNS: 98.7, 110, 19, 144 x 65, 89% nasal cannula GENERAL: Up in a chair, a bit delirious EYES: Pupils equal. Conjunctiva kylie l. HEENT: External appearance of nose and ears normal, oral cavity grossly normal. Some decreased hearing NECK: JVD not raised; masses not palpable. HEART: First and second heart sounds are normal; no edema. LUNGS: Respiratory rate normal; clear to auscultation. ABDOMEN: Soft, nontender, liver spleen not palpable, no masses palpable. PSYCH: Answering some questions. Delirious MUSCULOSKELETAL:No Clubbing/cyanosis;muscles-grossly intact OA NEUROLOGICAL: Cranial nerves grossly intact; no facial asymmetry, power and sensation grossly intact. Moving all 4 limbs INVESTIGATIONS, reviewed in the clinical context: Brain MRI without contrast [July 01, 2024] nothing acute. No mass. Nonspecific white matter changes. B12 328 folate 6.3 TSH 2.9. Treponema pallidum antibody nonreactive UA: Negative June 28, 2024: White count 7.3 hemoglobin 12.6 platelets 271 sodium 139 potassium 3.9 creatinine 0.91 EKG tracing personally reviewed by me-sinus tachycardia. CT brain: Without contrast unremarkable Chest x-ray film personally reviewed by me-nonspecific Assessment plan: -New onset of auditory and visual hallucinations. In the ER patient told me about people behind her including a girl. Not listening to her.: Delirium/ Decrease Risperdal to 1.5 mg nightly. 0.125 mg in the morning-changed to as needed. July 02: Sanctura being discontinued because of its side effect of anticholinergic and CEILING CLEANER effect. 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 Mark. LAURA Sanctura -Acute on chronic medical debility Walked about 6 feet with physical therapy -Hypercholesteremia Zocor -COPD in a previous smoker Pulmicort. Ventolin as needed -DNR [as per son Hanna] -Medical power of attorney lawyer, son hanna Jett P.m. dose of Risperdal changed to 1.5 mg. Morning dose changed to as needed. Seen by psychiatry. Xavier further change in medications. filter worker looking into placement. Encourage oral intake. 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, hypertension, hyperlipidemia, obesity History of Any Multi-Drug Resistant Organisms: None Reported Past Surgical History: Appendectomy, Breast Surgery, Hernia Repair, Hysterectomy, Tubal Ligation Past Anesthesia/Blood Transfusion Reactions: No Reported Reaction Past Psychological History: Anxiety Past Alcohol Use History: None Reported Past Drug Use History: None Reported
[2024-07-03] MEDS: LACTATED RINGERS 1,000 ML IV SCH (18:00)
[2024-07-03] MEDS ORDERED: risperiDONE 0.5 MG TAB PO SCH (21:00)
[2024-07-03] MEDS: risperiDONE 1 MG TAB PO SCH (21:36)
--- NOTE | 2024-07-03 22:42 | EEG ---
ELECTROENCEPHALOGRAM REPORT PREAMBLE: This is an 84-year-old female admitted with altered mental status, hallucinations. This study is performed to evaluate for any epileptiform activity. CURRENT MEDICATIONS: 1. Lipitor. 2. Aspirin. 3. Lovenox. 4. Lexapro. 5. Myrbetriq. 6. Risperdal. 7. Flomax. EEG FINDINGS: This is a 21-channel digital EEG recorded with video component, utilizing 10/20 international system with referential and bipolar montages. Background consists of well-developed, moderately well regulated, predominantly 5 to 7 hertz theta activity seen diffusely in bihemispheric region. Background does not seem to be clearly reactive to eye opening or closing. Photic driving response was not seen. Different stages of sleep were not seen. No focal or generalized epileptiform activity was seen. EKG channel showed no obvious arrhythmia. Hyperventilation was not done. IMPRESSION: This is an abnormal EEG due to background slowing suggestive of [id number] encephalopathy. No focal, lateralized, or epileptiform activity was seen. MMODL / IJN: [id number] /
[2024-07-04 03:58] LABS: Basophils % (A) 1 %; Eosinophils # (A) 0.2 k/uL (0-0.7); Eosinophils % (A) 3 %; HCT 36.4 % (34.0-46.0); HGB 11.5 gm/dL (11.4-16.0); Hypochromasia Slight; Lymphocytes # (A) 1.1 k/uL (1.0-4.8); Lymphocytes % (A) 18 %; MCH 27.5 pg (25.0-35.0); MCHC 31.6 g/dL (31.0-37.0); MCV 86.9 fL (80.0-100.0); Mean Platelet Volume 7.9; Monocytes # (A) 0.5 k/uL (0-1.0); Monocytes % (A) 8 %; Neutrophils # (A) 4.2 k/uL (1.3-7.7); Neutrophils % (A) 66 %; Platelet Count 207 k/uL (150-450); RBC 4.19 m/uL (3.80-5.40); RDW 13.9 % (11.5-15.5); WBC 6.4 k/uL (3.8-10.6)
[2024-07-04 04:11] LABS: African American GFR (CKD) 87 (>60 ml/min/1.73 sqM); Anion Gap 6 mmol/L; Blood Urea Nitrogen 20 mg/dL (7-17); Calcium 8.3 mg/dL (8.4-10.2); Carbon Dioxide 29 mmol/L (22-30); Chloride 104 mmol/L (98-107); Glucose 92 mg/dL (74-99); Non-African American GFR(CKD) 75 (>60 ml/min/1.73 sqM); Potassium 3.7 mmol/L (3.5-5.1); Sodium 139 mmol/L (137-145)
--- NOTE | 2024-07-04 09:28 | P.PN ---
Subjective Progress Note Date: 07/03/24 07/03/2024: Patient was seen for a follow-up. Patient is sitting comfortably in the recliner. Offers no new complaints. Per nursing report, patient walked 6 steps with a therapist. She is doing better. Patient offers no complaints. Patient slightly more interactive today. 07/02/2024: Patient initially seen by Dr. Duncan Perez. Please refer to his note for details Patient had presented with altered mental status, concerned about dementia. Has some depression features. Patient was seen for a follow-up. Patient is sitting in the recliner, in no acute distress. Patient is hard of hearing. Patient offers no complaints. Dr. Perez has recommended EEG, but not placed an order. No history of seizures. I spoke to patient's son Tad on the phone. He mentioned that patient came to the hospital because she complained of a bad headache and asked him to call 911. I reviewed EMS flowsheet, and it was mentioned that patient was having hallucinations, altered mental status but did not say anything about the headache. Patient's son agrees that she has slight memory disturbance, but she was holding conversation, trying to pay bills with him on , 2 days prior to arrival. She was able to make decisions knew what was going on, knew the people. She was trying to do house payments, able to feed herself. One of his friend comes over to give her a shower however. She knows everybody, but today when he came in, she said "I hope I know you", probably not recognizing her son. He is not sure as to the cause of acute worsening of mental orientation. Patient has been using walker for almost a year. Sometimes she uses the walker at home, but often she can manipulate inside the house without any device. Even the day she came in, she was having conversation, walking with a walker but she got worse overnight. Objective - Vital Signs Vital signs: Vital Signs Temp 97.7 F 07/04/24 07:38 Pulse 102 H 07/04/24 08:26 Resp 18 07/04/24 07:38 BP 122/52 07/04/24 07:38 Pulse Ox 94 L 07/04/24 08:02 FiO2 Intake & Output 07/03/24 07/04/24 07/04/24 18:59 06:59 18:59 Output Total 600 Balance -600 Output: Urine 600 Other: Voiding Method Indwelling Catheter Indwelling Catheter - Exam Patient is alert and awake, pleasantly confused. She is hard of hearing. Patient states that she is living in [facility] and [facility]. She could not tell type of building, but when multiple options provided, she said was detention. Regarding the month patient states "Sunday", then said was "March". She knows the year is 2023, but could not tell name of the president. Patient is alert and awake. Patient has no pronator drift. No myoclonic jerks. No ataxia for [id number] testing. Patient has positive palmomental reflex, positive visual spatial apraxia. - Labs CBC & Chem 7: 07/04/24 03:20 07/04/24 03:20 Labs: Abnormal Lab Results - Last 24 Hours (Table) 07/04/24 Range/Units 03:20 BUN 20 H (7-17) mg/dL Calcium 8.3 L (8.4-10.2) mg/dL Assessment and Plan Assessment: This is an 84-year-old woman who present emergency department because of altered mental status. She stated that that in the last 2 weeks she is having difficulty remembering her kids name. She also stated that since March 2024 she has been feeling depressed and wishes to that she is . She denies any plans. 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 Depression Suicidal ideation Respiratory distress and the patient is wheezing patient has underlying history of asthma Plan: Patient probably has developed dementia. There may be some component of pseudodementia of depression. No structural abnormality noted on the brain MRI. MRI of the brain revealed no evidence of intracranial mass or acute/subacute infarct. Nonspecific white matter changes, likely secondary to small vessel ischemic disease. Suspected arachnoid cyst overlying the left cerebrum parietal/posterior frontal lobe. I personally reviewed MRI, agree with the findings. No acute ischemic process. EEG was abnormal due to background slowing suggestive of mild to moderate encephalopathy. No focal, lateralized or epileptiform activity was seen. Patient has no signs of infection therefore hold off on lumbar puncture at this time. B12 328, folate 6.30, TSH 2.93, ammonia < 9. RPR nonreactive. B12 level is borderline as well as folic acid. We will start B12 and folate replacement. 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 They recommended to discontinue Xanax. Continue Risperdal 0.5 mg at bedtime for delirium. Continue Lexapro 10 mg daily. Will defer the rest of the medical management to primary and other specialist Discussed with PCP in detail.
--- NOTE | 2024-07-04 13:43 | XR ---
EXAMINATION TYPE: XR chest 1V portable DATE OF EXAM: 07/04/2024 1:30 PM COMPARISON: Chest radiographs from 06/28/2024 TECHNIQUE: XR chest 1V portable Portable AP radiograph of the chest. CLINICAL INDICATION:Female, 84 years old with history of congested cough; FINDINGS: Lungs/Pleura: No pleural effusion or pneumothorax. Bibasilar patchy airspace opacities. Heart/mediastinum: Cardiomediastinal silhouette is enlarged and stable. Atherosclerotic calcificatio ns are seen in the aorta. Musculoskeletal: No acute osseous pathology. IMPRESSION: 1. Bibasilar patchy airspace opacities which may represent pneumonia and/or atelectasis. 2. Cardiomegaly. [facility], , 07/04/2024 1:41 PM
--- NOTE | 2024-07-04 14:12 | P.PN ---
Subjective Progress Note Date: 07/04/24 Interval History: 84-year-old patient, follows with Dr. Zaidi. Chronic medical conditions inclu de COPD, hyperlipidemia, hypertension, colon cancer, COPD with chronic hypoxic respiratory failure,. Patient able to answer questions but really cannot give any detailed history. Per the EMS report the family told the EMS that patient has been altered since taking her morning medications. Patient speaking to about people not present at times. Patient uses home oxygen 2 L at all times. Patient denies any pain. Appetite is fair. She does tell me she was talking to some people behind her including a small girl. Were not present in the room. Otherwise appears rather comfortable June 30: Admitted for hallucinations. Put on Risperdal 0.5 mg nightly. Last night patient again was restless. Will increase Risperdal to 1 mg nightly. Did eat her breakfast. Still having some hallucinations. July 01: Patient Risperdal was increased to 1 mg last night. Patient did not still sleep well. Still hallucinating. Risperdal today increased to 2 mg at night. Patient still somewhat delirious. Oral intake about 25%. Will add Risperdal 0.125 mg for the morning. July 02: Saw the patient this afternoon. Patient get the morning smaller dose of Risperdal. Spoke to the nurse about 4:30 PM. Patient did rather fair during the daytime. Had about 50% of her breakfast and dinner. Patient to be kept awake until p.m. dose medications. Not to be woken up from then till 6 AM. I called patient's son Hanna and spoke to him on the phone. Give them an update. Lets see how patient does i overnight tomorrow morning. Also patient Sanctura is being discontinued because of its anticholinergic side effect. That could be contributing to patient's symptoms and hallucinations. Also spoke at length to the nurse. Total time spent about 50 minutes with over 30 minutes of discussion and July 03: Patient a bit delirious this morning. Will change her morning dose of Risperdal to as needed. P.m. dose was changed to 1.5 mg. [facility] declined to take the patient. With physical therapy patient walked about 6 feet. Hopefully patient will do better with today's change of medications. Spoke to social media content manager. Will speak to his son's about discharge planning. Patient was seen by psychiatrist today. She is okay with the current medications. 07/04/2024: Patient is afebrile, heart rate 102, respiratory rate 18, blood pressure 122/52, saturating 94% on 2 L. Lab work including CBC and BMP unremarkable. Psychiatry and neurology has been consulted for evaluation of hallucinations. Brain MRI was negative. EEG was negative for any seizures like activity or epileptiform activity. Patient complaining of productive cough and shortness of breath today. Chest x-ray ordered for further evaluation which showed bilateral patchy airspace opacities and cardiomegaly. Started patient on Rocephin and doxycycline for pneumonia. Assessment and plan: -New onset of auditory and visual hallucinations--improving In the ER patient told me about people behind her including a girl. Not listening to her.: Delirium/ Decrease Risperdal to 1.5 mg nightly. 0.125 mg in the morning-changed to as needed. July 02: Sanctura being discontinued because of its side effect of anticholinergic and EMPLOYMENT TRAINING SPECIALIST effect. MRI and EEG has been doneMRI was negative for acute process. EEG was abnormal due to background slowing suggestive of mild to moderate encephalopathy. Borderline B12 and folate, on replacement TSH unremarkable. Syphilis serology nonreactive. Neurology consultedappreciate recs recommended neuropsych evaluation Psychiatry consulted and following Pneumonia: Patient complaining of productive cough and shortness of breath Chest x-ray 07/04/2024 showed bilateral patchy airspace opacities concerning for pneumonia Started on rocephin and doxycycline. -Anxiety and depression disorder not otherwise specified Lexapro Psychiatry following -Neurocognitive disorder -Chronic urinary incontinence Diapers. Myrbetriq. DC Sanctura -Acute on chronic medical debility Walked about 6 feet with physical therapy -Hypercholesteremia Zocor -COPD in a previous smoker Pulmicort. Ventolin as needed -DNR [as per son Hanna] -Medical power of assistant attorney general, son hanna Jett DVT prophylaxis: Subcutaneous Lovenox Monitor vital signs and labs Labs and medication were reviewed. Continue same treatment. Further recommendations as per clinical course of the patient PHYSICAL EXAMINATION: GENERAL: NAD HEENT: EOMI, Sclerae anicteric, Moist Mucous membranes Neck: Supple, Non tender, No JVD PULMONARY: Equal breath souds B/L, No wheezing, b/lcrackles. CARDIOVASCULAR: S1, S2 present. No murmurs, rubs, or gallops. ABDOMEN: Soft, nontender, nondistended, normoactive bowel sounds. No guarding or rebound tenderness. MUSCULOSKELETAL: No edema, No cyanosis. No clubbing. Normal ROM. Intact peripheral pulses. NEUROLOGICAL: CN 2-12 grossly intact. No FND Skin: No Rash REVIEW OF SYSTEMS: CONSTITUTIONAL: No fever or chills. CARDIOVASCULAR: No chest pain, palpitations or syncope. PULMONARY: Complains of productive cough, shortness of breath. GASTROINTESTINAL: No nausea, vomiting, diarrhea, abdominal pain. : No Dysuria, urgency, frequency. Extremities: No edema. NEUROLOGICAL: No headaches, no weakness, or numbness Dictation was produced using [employer] dictation software. please excuse any grammatical, word or spelling errors. Objective - Vital Signs Vital signs: Vital Signs Temp 97.7 F 07/04/24 07:38 Pulse 102 H 07/04/24 08:26 Resp 18 07/04/24 07:38 BP 122/52 07/04/24 07:38 Pulse Ox 94 L 07/04/24 08:02 FiO2 Intake & Output 07/03/24 07/04/24 07/04/24 18:59 06:59 18:59 Output Total 600 Balance -600 Output: Urine 600 Other: Voiding Method Indwelling Catheter Indwelling Catheter Indwelling Catheter - Labs CBC & Chem 7: 07/04/24 03:20 07/04/24 03:20 Labs: Abnormal Lab Results - Last 24 Hours (Table) 07/04/24 Range/Units 03:20 BUN 20 H (7-17) mg/dL Calcium 8.3 L (8.4-10.2) mg/dL
[2024-07-04] MEDS: DOXYCYCLINE 100 MG CAP PO SCH (22:00)
[2024-07-04] MEDS: SODIUM CHLORIDE 0.9% 1,000 ML IV SCH (22:01)
--- NOTE | 2024-07-05 01:26 | P.PN ---
Subjective Progress Note Date: 07/04/24 07/04/2024: Patient was seen for a follow-up. Patient is laying in the bed, confused, in no distress. Per nurse patient has been more congested. 07/03/2024: Patient was seen for a follow-up. Patient is sitting comfortably in the recliner. Offers no new complaints. Per nursing report, patient walked 6 steps with a therapist. She is doing better. Patient offers no complaints. Patient slightly more interactive today. 07/02/2024: Patient initially seen by Dr. Duncan Perez. Please refer to his note for details Patient had presented with altered mental status, concerned about dementia. Has some depression features. Patient was seen for a follow-up. Patient is sitting in the recliner, in no acute distress. Patient is hard of hearing. Patient offers no complaints. Dr. Perez has recommended EEG, but not placed an order. No history of seizures. I spoke to patient's son Tad on the phone. He mentioned that patient came to the hospital because she complained of a bad headache and asked him to call 911. I reviewed EMS flowsheet, and it was mentioned that patient was having hallucinations, altered mental status but did not say anything about the headache. Patient's son agrees that she has slight memory disturbance, but she was holding conversation, trying to pay bills with him on , 2 days prior to arrival. She was able to make decisions knew what was going on, knew the people. She was trying to do house payments, able to feed herself. One of his friend comes over to give her a shower however. She knows everybody, but today when he came in, she said "I hope I know you", probably not recognizing her son. He is not sure as to the cause of acute worsening of mental orientation. Ijeoma rendon has been using walker for almost a year. Sometimes she uses the walker at home, but often she can manipulate inside the house without any device. Even the day she came in, she was having conversation, walking with a walker but she got worse overnight. Objective - Vital Signs Vital signs: Vital Signs Temp 98.2 F 07/04/24 13:30 Pulse 107 H 07/04/24 17:19 Resp 18 07/04/24 15:17 BP 121/70 07/04/24 17:19 Pulse Ox 95 07/04/24 17:19 FiO2 Intake & Output 07/03/24 07/04/24 07/04/24 18:59 06:59 18:59 Output Total 600 220 Balance -600 -220 Weight 99.79 kg Output: Urine 600 220 Straight 220 Other: Voiding Method Indwelling Catheter Indwelling Catheter Indwelling Catheter - Exam Patient is alert and awake, pleasantly confused. She is hard of hearing. Patient is alert and awake. Patient has no pronator drift. No myoclonic jerks. No ataxia for [id number] testing. Patient has positive palmomental reflex, positive visual spatial apraxia. - Labs CBC & Chem 7: 07/04/24 03:20 07/04/24 03:20 Labs: Abnormal Lab Results - Last 24 Hours (Table) 07/04/24 Range/Units 03:20 BUN 20 H (7-17) mg/dL Calcium 8.3 L (8.4-10.2) mg/dL Assessment and Plan Assessment: Mental status change, likely due to acute delirium. Probable underlying cognitive impairment. Pneumonia Depression Suicidal ideation Respiratory distress and the patient is wheezing patient has underlying history of asthma Plan: Patient has developed acute onset of altered mental status, also has some chest congestion. Finally, chest x-ray has revealed bibasilar patchy airspace opaciti es, which may represent pneumonia and/or atelectasis. Cardiomegaly. Patient started on ceftriaxone. MRI of the brain revealed no evidence of intracranial mass or acute/subacute infarct. Nonspecific white matter changes, likely secondary to small vessel ischemic disease. Suspected arachnoid cyst overlying the left cerebrum parietal/posterior frontal lobe. I personally reviewed MRI, agree with the findings. No acute ischemic process. EEG was abnormal due to background slowing suggestive of mild to moderate encephalopathy. No focal, lateralized or epileptiform activity was seen. B12 328, folate 6.30, TSH 2.93, ammonia < 9. RPR nonreactive. B12 level is borderline as well as folic acid. We will start B12 and folate replacement. 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 They recommended to discontinue Xanax. Continue Risperdal 0.5 mg at bedtime for delirium. Continue Lexapro 10 mg daily. Will defer the rest of the medical management to primary and other specialist Dr. Yo covering neurology service over the weekend, Dr. Perez starting from Sunday.
[2024-07-05 09:48] LABS: BUN/Creat Ratio 23.57 Ratio (12.00-20.00); Basophils # (A) 0.02 X 10*3/uL (0.00-0.10); Basophils % (A) 0.3 %; Blood Urea Nitrogen 16.5 mg/dL (9.0-27.0); Calcium 8.3 mg/dL (8.7-10.3); Carbon Dioxide 27.1 mmol/L (21.6-31.8); Chloride 105 mmol/L (96-109); Eosinophils # (A) 0.17 X 10*3/uL (0.04-0.35); Eosinophils % (A) 2.6 %; Glucose 90 mg/dL (70-110); HCT 36.3 % (37.2-46.3); HGB 11.1 g/dL (12.0-15.0); Lymphocytes # (A) 0.92 X 10*3/uL (0.90-5.00); Lymphocytes % (A) 14.3 %; MCH 26.9 pg (27.0-32.0); MCHC 30.6 g/dL (32.0-37.0); MCV 87.9 FL (80.0-97.0); Mean Platelet Volume 11.3 FL (9.5-12.2); Monocytes # (A) 0.78 X 10*3/uL (0.20-1.00); Monocytes % (A) 12.1 %; NRBC Per 100 WBC 0 X 10*3/uL (0.00-0.01); Neutrophils # (A) 4.52 X 10*3/uL (1.80-7.70); Neutrophils % (A) 70.4 %; Platelet Count 235 X 10*3/uL (140-440); Potassium 3.9 mmol/L (3.5-5.5); RBC 4.13 X 10*6/uL (4.10-5.20); RDW 14.1 % (11.5-14.5); Sodium 144 mmol/L (135-145); WBC 6.43 X 10*3/uL (4.50-10.00)
--- NOTE | 2024-07-05 11:23 | P.PN ---
Subjective 84-year-old patient, follows with Dr. Zaidi. Chronic medical conditions include COPD, hyperlipidemia, hypertension, colon cancer, COPD with chronic hypoxic respiratory failure,. Patient able to answer questions but really cannot give any detailed history. Per the EMS report the family told the EMS that patient has been altered since taking her morning medications. Patient speaking to about people not present at times. Patient uses home oxygen 2 L at all times. Patient denies any pain. Appetite is fair. She does tell me she was talking to some people behind her including a small girl. Were not present in the room. Otherwise appears rather comfortable June 30: Admitted for hallucinations. Put on Risperdal 0.5 mg nightly. Las t night patient again was restless. Will increase Risperdal to 1 mg nightly. Did eat her breakfast. Still having some hallucinations. July 01: Patient Risperdal was increased to 1 mg last night. Patient did not still sleep well. Still hallucinating. Risperdal today increased to 2 mg at night. Patient still somewhat delirious. Oral intake about 25%. Will add Risperdal 0.125 mg for the morning. July 02: Saw the patient this afternoon. Patient get the morning smaller dose of Risperdal. Spoke to the nurse about 4:30 PM. Patient did rather fair during the daytime. Had about 50% of her breakfast and dinner. Patient to be kept awake until p.m. dose medications. Not to be woken up from then till 6 AM. I called patient's son Tad and spoke to him on the phone. Give them an update. Lets see how patient does i overnight tomorrow morning. Also patient Sanctura is being discontinued because of its anticholinergic side effect. That could be contributing to patient's symptoms and hallucinations. Also spoke at length to the nurse. Total time spent about 50 minutes with over 30 minutes of discussion and July 03: Patient a bit delirious this morning. Will change her morning dose of Risperdal to as needed. P.m. dose was changed to 1.5 mg. [facility] declined to take the patient. With physical therapy patient walked about 6 feet. Hopefully patient will do better with today's change of medications. Spoke to social media intern. Will speak to his son's about discharge planning. Patient was seen by psychiatrist today. She is okay with the current medicati ons. 07/04/2024: Patient is afebrile, heart rate 102, respiratory rate 18, blood pressure 122/52, saturating 94% on 2 L. Lab work including CBC and BMP unremarkable. Psychiatry and neurology has been consulted for evaluation of hallucinations. Brain MRI was negative. EEG was negative for any seizures like activity or epileptiform activity. Patient complaining of productive cough and shortness of breath today. Chest x-ray ordered for further evaluation which showed bilateral patchy airspace opacities and cardiomegaly. Started patient on Rocephin and doxycycline for pneumonia. 07/05 Patient currently confused and sleepy, she was talking earlier this morning Patient could not eat her breakfast because of the oral thrush, it was burning mild. Nystatin was added Also will order swallow evaluation on Sunday as patient has suspected bilateral basal pneumonia Patient with no fever or leukocytosis currently Will check pro- Calcitonin and proBNP Currently covered with ceftriaxone and doxycycline. Also she is small dose of oral Lasix 20 mg twice daily Neurologist following closely and vitamin B12 was low normal and replacement started. MRI of the brain is negative for acute process Patient remains mildly tachycardic. She is saturating well on 3 L oxygen. Discussed with staff Active Medications Generic Name Dose Route Start Last Admin Trade Name Freq PRN Reason Stop Dose Admin Albuterol Sulfate 2.5 mg 06/29/24 12:49 Albuterol Nebulized 2.5 Mg/3 Ml INHALATION RT-Q6H PRN Shortness Of Breath Albuterol/Ipratropium 3 ml 06/29/24 08:16 07/05/24 09:13 Ipratropium-Albuterol 3 Ml Neb INHALATION 3 ml RT-QID DESHAWN Administration Aspirin 81 mg 06/29/24 13:00 07/05/24 09:05 Aspirin 81 Mg PO 81 mg DAILY DESHAWN Administration Atorvastatin Calcium 10 mg 06/29/24 21:00 07/04/24 22:01 Atorvastatin 10 Mg Tab PO 10 mg HS DESHAWN Administration Budesonide 0.5 mg 06/29/24 12:49 07/05/24 09:14 Budesonide 0.5 Mg/2 Ml Nebu INHALATION 0.5 mg RT-BID DESHAWN Administration Calcium Carbonate/Glycine 1,000 mg 06/29/24 14:22 06/29/24 21:20 Calcium Carbonate 500 Mg Chewable PO 1,000 mg QID PRN Administration Heartburn Cyanocobalamin 1,000 mcg 07/03/24 09:00 07/05/24 09:05 Cyanocobalamin 500 Mcg Tab PO 1,000 mcg DAILY DESHAWN Administration Doxycycline Monohydrate 100 mg 07/04/24 21:00 07/05/24 09:07 Doxycycline 100 Mg Cap PO 100 mg BID DESHAWN Administration Protocol Enoxaparin Sodium 40 mg 06/29/24 13:00 07/05/24 09:05 Enoxaparin 40 Mg/0.4 Ml Syringe SQ 40 mg DAILY DESHAWN Administration Escitalopram Oxalate 10 mg 06/29/24 13:00 07/05/24 09:08 Escitalopram 10 Mg Tab PO 10 mg DAILY DESHAWN Administration Folic Acid 1 mg 07/02/24 17:15 07/05/24 09:05 Folic Acid 1 Mg Tab PO 1 mg DAILY DESHAWN Administration Formoterol Fumarate 20 mcg 06/29/24 12:49 07/05/24 09:14 Formoterol Fumarate 20 Mcg/2 Ml Nebu INHALATION 20 mcg RT-BID DESHAWN Administration Ceftriaxone Sodium 2 gm/ 50 mls @ 100 mls/hr 07/04/24 19:00 07/05/24 09:05 Sodium Chloride IVPB 100 mls/hr Q24HR DESHAWN Administration Protocol Sodium Chloride 1,000 mls @ 50 mls/hr 07/04/24 20:30 07/04/24 22:01 Saline 0.9% IV 50 mls/hr .Q20H DESHAWN Administration Naloxone HCl 0.2 mg 06/28/24 20:38 Naloxone 0.4 Mg/Ml 1 Ml Vial IV Q2M PRN Opioid Reversal Non-Formulary Medication 50 mg 06/29/24 13:00 07/05/24 09:31 Mirabegron [Myrbetriq] PO Not Given DAILY DESHAWN Nystatin 1 applic 06/29/24 21:00 07/05/24 09:08 Nystatin 100,000 Unit/Gm Powd 15 Gm TOPICAL 1 applic BID DESHAWN Administration Protocol Nystatin 500,000 unit 07/05/24 13:00 Nystatin 100,000 Unit/Ml Susp 500,000 Unit/5 Ml Cup PO QID DESHAWN Protocol Petrolatum 1 applic 06/30/24 09:30 07/05/24 09:12 Zinc Oxide Paste (Z-Guard) 1 Applic TOPICAL 1 applic DAILY DESHAWN Administration Protocol Risperidone 0.125 mg 07/03/24 10:51 Risperidone 0.25 Mg Tab PO DAILY PRN Agitation Risperidone 1.5 mg 07/03/24 21:00 07/04/24 22:01 Risperidone 1 Mg Tab PO 1.5 mg HS DESHAWN Administration Tamsulosin HCl 0.4 mg 07/01/24 11:15 07/05/24 06:43 Tamsulosin 0.4 Mg Cap.Er.24h PO 0.4 mg AC-BID DESHAWN Administration Objective - Vital Signs Vital signs: Vital Signs Temp 97.6 F 07/05/24 07:30 Pulse 100 07/05/24 09:35 Resp 20 07/05/24 09:35 BP 114/72 07/05/24 07:30 Pulse Ox 96 07/05/24 07:30 FiO2 Intake & Output 07/04/24 07/05/24 07/05/24 18:59 06:59 18:59 Output Total 370 350 Balance -370 -350 Weight 99.79 kg Output: Urine 370 350 Straight 220 Other: Voiding Method Indwelling Catheter Indwelling Catheter Indwelling Catheter # Bowel Movements 1 - Exam -GENERAL: The patient is sleepy and confused 3, not in any acute distress. Well developed, well nourished. HEENT: Pupils are round and equally reacting to light. EOMI. No scleral icterus. No conjunctival pallor. Normocephalic, atraumatic. No pharyngeal erythema. No thyromegaly. CARDIOVASCULAR: S1 and S2 present. No murmurs, rubs, or gallops. PULMONARY: Chest is clear to auscultation, no wheezing , no crackles. ABDOMEN: Soft, nontender, nondistended, normoactive bowel sounds. No palpable organomegaly. MUSCULOSKELETAL: No joint swelling or deformity. EXTREMITIES: No cyanosis, clubbing, or pedal edema. NEUROLOGICAL: Gross neurological examination did not reveal any focal deficits. SKIN: No rashes. no petechiae. - Labs CBC & Chem 7: 07/05/24 05:49 07/05/24 05:49 Labs: Abnormal Lab Results - Last 24 Hours (Table) 07/05/24 07/05/24 Range/Units 05:49 05:49 Hgb 11.1 L (12.0-15.0) g/dL Hct 36.3 L (37.2-46.3) % MCH 26.9 L (27.0-32.0) pg MCHC 30.6 L (32.0-37.0) g/dL BUN/Creatinine Ratio 23.57 H (12.00-20.00) Ratio Calcium 8.3 L (8.7-10.3) mg/dL Assessment and Plan Assessment: Assessment and plan: -New onset of auditory and visual hallucinations--improving with altered mental status could be metabolic/toxic encephalopathy In the ER patient told me about people behind her including a girl. Not listening to her.: Delirium/ Decrease Risperdal to 1.5 mg nightly. 0.125 mg in the morning-changed to as needed. July 02: Sanctura being discontinued because of its side effect of anticholinergic and OPTICIANRY TEACHER effect. MRI and EEG has been doneMRI was negative for acute process. EEG was abnormal due to background slowing suggestive of mild to moderate encephalopathy. Borderline B12 and folate, on replacement TSH unremarkable. Syphilis serology nonreactive. Neurology consultedappreciate recs recommended neuropsych evaluation Psychiatry consulted and following Pneumonia: Patient complaining of productive cough and shortness of breath Chest x-ray 07/04/2024 showed bilateral patchy airspace opacities concerning for pneumonia Started on rocephin and doxycycline. Check pro- Calcitonin Check proBNP as well to rule out differential diagnosis like fluid overload -Anxiety and depression disorder not otherwise specified Lexapro Psychiatry following -Neurocognitive disorder -Chronic urinary incontinence Diapers. Myrbetriq. DC Sanctura -Acute on chronic medical debility Walked about 6 feet with physical therapy -Hypercholesteremia Zocor -COPD in a previous smoker Pulmicort. Ventolin as needed -DNR [as per son Tad] -Medical power of insurance defense attorney, krissy Jett DVT prophylaxis: Lovenox Subcutaneous Lovenox Prognosis is guarded
[2024-07-05] MEDS: NYSTATIN 100,000 UNIT/ML SUSP 500,000 UNIT/5 ML CUP PO SCH (14:04)
[2024-07-06] MEDS: ALBUTEROL NEBULIZED 2.5 MG/3 ML INHALATION PRN (00:10)
[2024-07-06 09:54] LABS: BUN/Creat Ratio 23.83 Ratio (12.00-20.00); Blood Urea Nitrogen 14.3 mg/dL (9.0-27.0); Calcium 8.4 mg/dL (8.7-10.3); Carbon Dioxide 29.6 mmol/L (21.6-31.8); Chloride 106 mmol/L (96-109); Glucose 84 mg/dL (70-110); Potassium 3.6 mmol/L (3.5-5.5); Sodium 143 mmol/L (135-145)
[2024-07-06 09:57] LABS: Basophils # (A) 0.03 X 10*3/uL (0.00-0.10); Basophils % (A) 0.6 %; Eosinophils # (A) 0.24 X 10*3/uL (0.04-0.35); Eosinophils % (A) 4.7 %; HCT 35.5 % (37.2-46.3); HGB 10.8 g/dL (12.0-15.0); Lymphocytes # (A) 1.15 X 10*3/uL (0.90-5.00); Lymphocytes % (A) 22.7 %; MCH 27.3 pg (27.0-32.0); MCHC 30.4 g/dL (32.0-37.0); MCV 89.6 FL (80.0-97.0); Mean Platelet Volume 11.5 FL (9.5-12.2); Monocytes # (A) 0.59 X 10*3/uL (0.20-1.00); Monocytes % (A) 11.7 %; NRBC Per 100 WBC 0 X 10*3/uL (0.00-0.01); Neutrophils # (A) 3.04 X 10*3/uL (1.80-7.70); Neutrophils % (A) 60.1 %; Platelet Count 249 X 10*3/uL (140-440); RBC 3.96 X 10*6/uL (4.10-5.20); RDW 13.9 % (11.5-14.5); WBC 5.06 X 10*3/uL (4.50-10.00)
--- NOTE | 2024-07-06 12:04 | P.PN ---
Subjective 84-year-old patient, follows with Dr. Zaidi. Chronic medical conditions include COPD, hyperlipidemia, hypertension, colon cancer, COPD with chronic hypoxic respiratory failure,. Patient able to answer questions but really cannot give any detailed history. Per the EMS report the family told the EMS that patient has been altered since taking her morning medications. Patient speaking to about people not present at times. Patient uses home oxygen 2 L at all times. Patient denies any pain. Appetite is fair. She does tell me she was talking to some people behind her including a small girl. Were not present in the room. Otherwise appears rather comfortable June 30: Admitted for hallucinations. Put on Risperdal 0.5 mg nightly. Las t night patient again was restless. Will increase Risperdal to 1 mg nightly. Did eat her breakfast. Still having some hallucinations. July 01: Patient Risperdal was increased to 1 mg last night. Patient did not still sleep well. Still hallucinating. Risperdal today increased to 2 mg at night. Patient still somewhat delirious. Oral intake about 25%. Will add Risperdal 0.125 mg for the morning. July 02: Saw the patient this afternoon. Patient get the morning smaller dose of Risperdal. Spoke to the nurse about 4:30 PM. Patient did rather fair during the daytime. Had about 50% of her breakfast and dinner. Patient to be kept awake until p.m. dose medications. Not to be woken up from then till 6 AM. I called patient's son Tad and spoke to him on the phone. Give them an update. Lets see how patient does i overnight tomorrow morning. Also patient Sanctura is being discontinued because of its anticholinergic side effect. That could be contributing to patient's symptoms and hallucinations. Also spoke at length to the nurse. Total time spent about 50 minutes with over 30 minutes of discussion and July 03: Patient a bit delirious this morning. Will change her morning dose of Risperdal to as needed. P.m. dose was [facility]5 mg[facility]. With physical therapy patient walked about 6 feet. Hopefully patient will do better with today's change of medications. Spoke to social worker clinical. Will speak to his son's about discharge planning. Patient was seen by psychiatrist today. She is okay with the current medicati ons. 07/04/2024: Patient is afebrile, heart rate 102, respiratory rate 18, blood pressure 122/52, saturating 94% on 2 L. Lab work including CBC and BMP unremarkable. Psychiatry and neurology has been consulted for evaluation of hallucinations. Brain MRI was negative. EEG was negative for any seizures like activity or epileptiform activity. Patient complaining of productive cough and shortness of breath today. Chest x-ray ordered for further evaluation which showed bilateral patchy airspace opacities and cardiomegaly. Started patient on Rocephin and doxycycline for pneumonia. 07/05 Patient currently confused and sleepy, she was talking earlier this morning Patient could not eat her breakfast because of the oral thrush, it was burning mild. Nystatin was added Also will order swallow evaluation on Sunday as patient has suspected bilateral basal pneumonia Patient with no fever or leukocytosis currently Will check pro- Calcitonin and proBNP Currently covered with ceftriaxone and doxycycline. Also she is small dose of oral Lasix 20 mg twice daily Neurologist following closely and vitamin B12 was low normal and replacement started. MRI of the brain is negative for acute process Patient remains mildly tachycardic. She is saturating well on 3 L oxygen. Discussed with staff 07/06 Patient is more awake today. She is mildly confused but follows command. Has insight into her illness She was able to eat 50% of her meal No chest pain or dyspnea or abdominal pain. She is still mildly tachycardic Labs showing mild anemia with hemoglobin 10.8 She remains on ceftriaxone and doxycycline. Nystatin added for oral thrush. Wong catheter in place Objective - Vital Signs Vital signs: Vital Signs Temp 97.9 F 07/06/24 07:19 Pulse 104 H 07/06/24 09:38 Resp 19 07/06/24 08:34 BP 117/76 07/06/24 07:19 Pulse Ox 95 07/06/24 09:21 FiO2 Intake & Output 07/05/24 07/06/24 07/06/24 18:59 06:59 18:59 Output Total 200 350 Balance -200 -350 Output: Urine 200 350 Other: Voiding Method Indwelling Catheter Indwelling Catheter Indwelling Catheter - Exam -GENERAL: The patient is sleepy and confused 3, not in any acute distress. Well developed, well nourished. HEENT: Pupils are round and equally reacting to light. EOMI. No scleral icterus. No conjunctival pallor. Normocephalic, atraumatic. No pharyngeal erythema. No thyromegaly. CARDIOVASCULAR: S1 and S2 present. No murmurs, rubs, or gallops. PULMONARY: Chest is clear to auscultation, no wheezing , no crackles. ABDOMEN: Soft, nontender, nondistended, normoactive bowel sounds. No palpable organomegaly. MUSCULOSKELETAL: No joint swelling or deformity. EXTREMITIES: No cyanosis, clubbing, or pedal edema. NEUROLOGICAL: Gross neurological examination did not reveal any focal deficits. SKIN: No rashes. no petechiae. - Labs CBC & Chem 7: 07/06/24 03:49 07/06/24 03:49 Labs: Abnormal Lab Results - Last 24 Hours (Table) 07/06/24 07/06/24 Range/Units 03:49 03:49 RBC 3.96 L (4.10-5.20) X 10*6/uL Hgb 10.8 L (12.0-15.0) g/dL Hct 35.5 L (37.2-46.3) % MCHC 30.4 L (32.0-37.0) g/dL BUN/Creatinine Ratio 23.83 H (12.00-20.00) Ratio Calcium 8.4 L (8.7-10.3) mg/dL Assessment and Plan Assessment: Assessment and plan: -New onset of auditory and visual hallucinations--improving with altered mental status could be metabolic/toxic encephalopathy In the ER patient told me about people behind her including a girl. Not listening to her.: Delirium/ Decrease Risperdal to 1.5 mg nightly. 0.125 mg in the morning-changed to as needed. July 02: Sanctura being discontinued because of its side effect of anticholinergic and PEDIATRIC ONCOLOGIST effect. MRI and EEG has been doneMRI was negative for acute process. EEG was abnormal due to background slowing suggestive of mild to moderate encephalopathy. Borderline B12 and folate, on replacement TSH unremarkable. Syphilis serology nonreactive. Neurology consultedappreciate recs recommended neuropsych evaluation Psychiatry consulted and following Pneumonia: Patient complaining of productive cough and shortness of breath Chest x-ray 07/04/2024 showed bilateral patchy airspace opacities concerning for pneumonia Started on rocephin and doxycycline. Check pro- Calcitonin Check proBNP as well to rule out differential diagnosis like fluid overload -Anxiety and depression disorder not otherwise specified Lexapro Psychiatry following -Neurocognitive disorder -Chronic urinary incontinence Diapers. Mark. LAURA Sanctura -Acute on chronic medical debility Walked about 6 feet with physical therapy -Hypercholesteremia Zocor -COPD in a previous smoker Pulmicort. Ventolin as needed -DNR [as per krissy Mishra] -Medical power of county attorney, krissy Jett DVT prophylaxis: Lovenox Subcutaneous Lovenox Prognosis is guarded
--- NOTE | 2024-07-07 17:15 | XR ---
EXAMINATION TYPE: XR chest 1V portable DATE OF EXAM: 07/07/2024 CLINICAL HISTORY: Shortness of breath TECHNIQUE: Single frontal view of the chest is obtained. COMPARISON: 07/04/2024 FINDINGS: Patchy density right lower lobe persists although slightly improved. The cardiac silhouette size is within normal limits. The osseous structures are intact. IMPRESSION: Patchy density right lower lobe persists although slightly improved. [facility], , 07/07/2024 5:12 PM
--- NOTE | 2024-07-08 07:39 | PN ---
PROGRESS NOTE DATE OF SERVICE: 07/07/2024 SUBJECTIVE: This is an 84-year-old woman, who was admitted with hallucinations, also had some pneumonia. The patient is being closely monitored. No chest pain. No palpitation. OBJECTIVE: GENERAL: The patient is confused. VITAL SIGNS: Pulse is 106, blood pressure 105/61, respirations 18. CHEST: A few scattered rhonchi and crackles. ABDOMEN: Soft. NERVOUS SYSTEM: Diffusely weak. LABORATORY DATA: Reviewed. ASSESSMENT: 1. New onset auditory and visual hallucinations. 2. Acute pneumonia. 3. Anxiety. 4. Chronic urinary incontinence. RECOMMENDATIONS AND DISCUSSION: I recommend to continue current management and continue symptomatic treatment. I would recommend to repeat labs and Dr. Michel will follow tomorrow. MMMIKEL / FRANTZN: [id number] /
[2024-07-08 08:58] LABS: BUN/Creat Ratio 31.17 Ratio (12.00-20.00); Blood Urea Nitrogen 18.7 mg/dL (9.0-27.0); Calcium 8.6 mg/dL (8.7-10.3); Carbon Dioxide 25.4 mmol/L (21.6-31.8); Chloride 106 mmol/L (96-109); Glucose 87 mg/dL (70-110); Potassium 3.5 mmol/L (3.5-5.5); Sodium 142 mmol/L (135-145)
[2024-07-08] MEDS: CEFDINIR 300 MG CAP PO SCH (10:04)
[2024-07-08 10:10] LABS: Basophils # (A) 0.05 X 10*3/uL (0.00-0.10); Basophils % (A) 0.8 %; Eosinophils # (A) 0.32 X 10*3/uL (0.04-0.35); Eosinophils % (A) 4.9 %; HCT 35.9 % (37.2-46.3); Lymphocytes # (A) 1.64 X 10*3/uL (0.90-5.00); Lymphocytes % (A) 25.1 %; MCH 26.8 pg (27.0-32.0); MCHC 30.6 g/dL (32.0-37.0); MCV 87.3 FL (80.0-97.0); Monocytes # (A) 0.71 X 10*3/uL (0.20-1.00); Monocytes % (A) 10.9 %; NRBC Per 100 WBC 0 X 10*3/uL (0.00-0.01); Neutrophils # (A) 3.77 X 10*3/uL (1.80-7.70); Neutrophils % (A) 57.5 %; Platelet Count 314 X 10*3/uL (140-440); RBC 4.11 X 10*6/uL (4.10-5.20); RDW 13.7 % (11.5-14.5); WBC 6.54 X 10*3/uL (4.50-10.00)
[2024-07-08] MEDS: FUROSEMIDE 10 MG/ML 2 ML VIAL IV ONE (12:29)
--- NOTE | 2024-07-08 19:01 | P.PN ---
Subjective Progress Note Date: 07/08/24 My colleague, Dr. Issa was seeing the patient last week. Please refer to his note for further details. First she has not slept yesterday and was doing well yesterday but since is she did not sleep yesterday today she is a bit more confused. Objective - Vital Signs Vital signs: Vital Signs Temp 97.8 F 07/08/24 14:55 Pulse 94 07/08/24 15:35 Resp 18 07/08/24 14:55 BP 125/62 07/08/24 14:55 Pulse Ox 97 07/08/24 14:55 FiO2 Intake & Output 07/07/24 07/08/24 07/08/24 18:59 06:59 18:59 Output Total 225 800 800 Balance -225 -800 -800 Weight 99.79 kg Output: Urine 225 800 800 Other: Voiding Method Indwelling Catheter Indwelling Catheter Indwelling Catheter - Exam General: Sitting up in recliner chair and is not in acute distress. Neuro: Limited. Patient is awake alert oriented to self. She is able to name objects correctly such as pen and glasses. Is following simple commands but needs redirection. Pupils are round equal reactive to light. No facial weakness. No dysarthria Motor: Strength is limited because of cooperation but is able to lift bilateral uppers above gravity. - Labs CBC & Chem 7: 07/08/24 03:30 07/08/24 03:30 Labs: Abnormal Lab Results - Last 24 Hours (Table) 07/08/24 07/08/24 Range/Units 03:30 03:30 Hgb 11.0 L (12.0-15.0) g/dL Hct 35.9 L (37.2-46.3) % MCH 26.8 L (27.0-32.0) pg MCHC 30.6 L (32.0-37.0) g/dL Immature Gran # 0.05 H (0.00-0.04) X 10*3/uL BUN/Creatinine Ratio 31.17 H (12.00-20.00) Ratio Calcium 8.6 L (8.7-10.3) mg/dL Assessment and Plan Assessment: Mental status change, likely due to acute delirium. Probable underlying cognitive impairment. Pneumonia Depression Suicidal ideation Respiratory distress and the patient is wheezing patient has underlying history of asthma Plan: Patient has developed acute onset of altered mental status, also has some chest congestion. Finally, chest x-ray has revealed bibasilar patchy airspace opacities, which may represent pneumonia and/or atelectasis. Cardiomegaly. Patient started on ceftriaxone. MRI of the brain revealed no evidence of intracranial mass or acute/subacute infarct. Nonspecific white matter changes, likely secondary to small vessel ischemic disease. Suspected arachnoid cyst overlying the left cerebrum parietal/posterior frontal lobe. I personally reviewed MRI, agree with the findings. No acute ischemic process. EEG was abnormal due to background slowing suggestive of mild to moderate encephalopathy. No focal, lateralized or epileptiform activity was seen. B12 328, folate 6.30, TSH 2.93, ammonia < 9. RPR nonreactive. B12 level is borderline as well as folic acid. We will start B12 and folate replacement. 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 They recommended to discontinue Xanax. Continue Risperdal 0.5 mg at bedtime for delirium. Continue Lexapro 10 mg daily. Will defer the rest of the medical management to primary and other specialist The plan is discussed with nurse. There is no further neurological work-up. Will sign off. Please reconsult if needed. Time with Patient: Less than 30
--- NOTE | 2024-07-08 20:28 | P.PN ---
Progress Note - Text Progress Note Date: 07/08/24 Chief Complaint: Altered mentation 84-year-old patient, follows with Dr. Zaidi. Chronic medical conditions include COPD, hyperlipidemia, hypertension, colon cancer, COPD with chronic hypoxic respiratory failure,. Patient able to answer questions but really cannot give any detailed history. Per the EMS report the family told the EMS that patient has been altered since taking her morning medications. Patient speaking to about people not present at times. Patient uses home oxygen 2 L at all times. Patient denies any pain. Appetite is fair. She does tell me she was talking to some people behind her including a small girl. Were not present in the room. Otherwise appears rather comfortable June 30: Admitted for hallucinations. Put on Risperdal 0.5 mg nightly. Last night patient again was restless. Will increase Risperdal to 1 mg nightly. Did eat her breakfast. Still having some hallucinations. July 01: Patient Risperdal was increased to 1 mg last night. Patient did not still sleep well. Still hallucinating. Risperdal today increased to 2 mg at night. Patient still somewhat delirious. Oral intake about 25%. Will add Risperdal 0.125 mg for the morning. July 02: Saw the patient this afternoon. Patient get the morning smaller dose of Risperdal. Spoke to the nurse about 4:30 PM. Patient did rather fair during the daytime. Had about 50% of her breakfast and dinner. Patient to be kept awake until p.m. dose medications. Not to be woken up from then till 6 AM. I called patient's son Tad and spoke to him on the phone. Give them an update. Lets see how patient does i overnight tomorrow morning. Also patient Sanctura is being discontinued because of its anticholinergic side effect. That could be contributing to patient's symptoms and hallucinations. Also spoke at length to the nurse. Total time spent about 50 minutes with over 30 minutes of discussion and July 03: Patient a bit delirious this morning. Will change her morning dose of Risperdal to as needed. P.m. dose was changed to 1.5 mg. [facility] declined to take the patient. With physical therapy patient walked about 6 feet. Hopefully patient will do better with today's change of medications. Spoke to social media marketer. Will speak to his son's about discharge planning. Patient was seen by psychiatrist today. She is okay with the current medications. 07/04/2024: Patient is afebrile, heart rate 102, respiratory rate 18, blood pressure 122/52, saturating 94% on 2 L. Lab work including CBC and BMP unremarkable. Psychiatry and neurology has been consulted for evaluation of hallucinations. Brain MRI was negative. EEG was negative for any seizures like activity or epileptiform activity. Patient complaining of productive cough and shortness of breath today. Chest x-ray ordered for further evaluation which showed bilateral patchy airspace opacities and cardiomegaly. Started patient on Rocephin and doxycycline for pneumonia. 07/05 Patient currently confused and sleepy, she was talking earlier this morning Patient could not eat her breakfast because of the oral thrush, it was burning mild. Nystatin was added Also will order swallow evaluation on Sunday as patient has suspected bilateral basal pneumonia Patient with no fever or leukocytosis currently Will check pro- Calcitonin and proBNP Currently covered with ceftriaxone and doxycycline. Also she is small dose of oral Lasix 20 mg twice daily Neurologist following closely and vitamin B12 was low normal and replacement started. MRI of the brain is negative for acute process Patient remains mildly tachycardic. She is saturating well on 3 L oxygen. Discussed with staff 07/06 Patient is more awake today. She is mildly confused but follows command. Has insight into her illness She was able to eat 50% of her meal No chest pain or dyspnea or abdominal pain. She is still mildly tachycardic Labs showing mild anemia with hemoglobin 10.8 She remains on ceftriaxone and doxycycline. Nystatin added for oral thrush. Wong catheter in place July 08: Up in a chair. Answering simple questions. Eating fair. Current dose of medication is working well. Patient not shown any agitation. Following commands. 2 L nasal cannula. Active Medications Albuterol Sulfate (Albuterol Nebulized 2.5 Mg/3 Ml) 2.5 mg INHALATION RT-Q6H PRN PRN Reason: Shortness Of Breath Last Admin: 07/06/24 00:10 Dose: 2.5 mg Albuterol/Ipratropium (Ipratropium-Albuterol 3 Ml Neb) 3 ml INHALATION RT-QID [facility] Last Admin: 07/08/24 15:26 Dose: 3 ml Aspirin (Aspirin 81 Mg) 81 mg PO DAILY [facility] Last Admin: 07/08/24 10:04 Dose: 81 mg Atorvastatin Calcium (Atorvastatin 10 Mg Tab) 10 mg PO HS [facility] Last Admin: 07/07/24 20:48 Dose: 10 mg Budesonide (Budesonide 0.5 Mg/2 Ml Nebu) 0.5 mg INHALATION RT-BID [facility] Last Admin: 07/08/24 08:36 Dose: 0.5 mg Calcium Carbonate/Glycine (Calcium Carbonate 500 Mg Chewable) 1,000 mg PO QID PRN PRN Reason: Heartburn Last Admin: 06/29/24 21:20 Dose: 1,000 mg Cefdinir (Cefdinir 300 Mg Cap) 300 mg PO BID [facility] Last Admin: 07/08/24 10:04 Dose: 300 mg Cyanocobalamin (Cyanocobalamin 500 Mcg Tab) 1,000 mcg PO DAILY [facility] Last Admin: 07/08/24 10:04 Dose: 1,000 mcg Doxycycline Monohydrate (Doxycycline 100 Mg Cap) 100 mg PO BID [facility]; Protocol Last Admin: 07/08/24 10:04 Dose: 100 mg Enoxaparin Sodium (Enoxaparin 40 Mg/0.4 Ml Syringe) 40 mg SQ DAILY [facility] Last Admin: 07/08/24 10:05 Dose: 40 mg Escitalopram Oxalate (Escitalopram 10 Mg Tab) 10 mg PO DAILY [facility] Last Admin: 07/08/24 10:04 Dose: 10 mg Folic Acid (Folic Acid 1 Mg Tab) 1 mg PO DAILY [facility] Last Admin: 07/08/24 10:03 Dose: 1 mg Formoterol Fumarate (Formoterol Fumarate 20 Mcg/2 Ml Nebu) 20 mcg INHALATION RT-BID [facility] Last Admin: 07/08/24 08:36 Dose: 20 mcg Naloxone HCl (Naloxone 0.4 Mg/Ml 1 Ml Vial) 0.2 mg IV Q2M PRN PRN Reason: Opioid Reversal Non-Formulary Medication (Mirabegron [Myrbetriq]) 50 mg PO DAILY [facility] Last Admin: 07/08/24 09:56 Dose: Not Given Nystatin (Nystatin 100,000 Unit/Gm Powd 15 Gm) 1 applic TOPICAL BID [facility]; Protocol Last Admin: 07/08/24 10:08 Dose: 1 applic Nystatin (Nystatin 100,000 Unit/Ml Susp 500,000 Unit/5 Ml Cup) 500,000 unit PO QID [facility]; Protocol Last Admin: 07/08/24 17:05 Dose: 500,000 unit Petrolatum (Zinc Oxide Paste (Z-Guard) 1 Applic) 1 applic TOPICAL DAILY [facility]; Protocol Last Admin: 07/08/24 10:08 Dose: 1 applic Risperidone (Risperidone 0.25 Mg Tab) 0.125 mg PO DAILY PRN PRN Reason: Agitation Risperidone (Risperidone 1 Mg Tab) 1.5 mg PO HS [facility] Last Admin: 07/07/24 20:48 Dose: 1.5 mg Tamsulosin HCl (Tamsulosin 0.4 Mg Cap.Er.24h) 0.4 mg PO AC-BID [facility] Last Admin: 07/08/24 17:06 Dose: 0.4 mg Social history: Apparently lives with her 2 sons. Smoked for 15 years stopped in 2009. 1 pack a day. No alcohol reported. Physical examination: VITAL SIGNS: 97.8, 95, 18, 125 x 62, 97% on 2 L GENERAL: Up in a chair, communicating EYES: Pupils equal. Conjunctiva kylie l. HEENT: External appearance of nose and ears normal, oral cavity grossly normal. Some decreased hearing NECK: JVD not raised; masses not palpable. HEART: First and second heart sounds are normal; no edema. LUNGS: Respiratory rate normal; clear to auscultation. ABDOMEN: Soft, nontender, liver spleen not palpable, no masses palpable. PSYCH: Answering some questions. Very much improved MUSCULOSKELETAL:No Clubbing/cyanosis;muscles-grossly intact OA NEUROLOGICAL: Cranial nerves grossly intact; no facial asymmetry, power and sensation grossly intact. Moving all 4 limbs INVESTIGATIONS, reviewed in the clinical context: July 08: White count 6.5 hemoglobin 11 platelets 314 potassium 3.5 creatinine 0.6 Brain MRI without contrast [July 01, 2024] nothing acute. No mass. Nonspecific white matter changes. B12 328 folate 6.3 TSH 2.9. Treponema pallidum antibody nonreactive UA: Negative June 28, 2024: White count 7.3 hemoglobin 12.6 platelets 271 sodium 139 potassium 3.9 creatinine 0.91 EKG tracing personally reviewed by me-sinus tachycardia. CT brain: Without contrast unremarkable Chest x-ray film personally reviewed by me-nonspecific Assessment plan: -New onset of auditory and visual hallucinations. In the ER patient told me about people behind her including a girl. Not listening to her.: Delirium/better Risperdal to 1.5 mg nightly. 0.125 mg in the morning-- as needed. July 02: Sanctura being discontinued because of its side effect of anticholinergic and HELP DESK ANALYST effect. 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 Myrbetriq. DC Sanctura -Acute on chronic medical debility 24 feet with physical therapy -Hypercholesteremia Zocor -COPD in a previous smoker Pulmicort. Ventolin as needed -DNR [as per son Tad] -Medical power of trial attorney, krissy Jett Patient doing much better.. Discussed with social media marketer. Authorization yesterday. Submitted again. Hopefully will be discharged tomorrow. 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, hypertension, hyperlipidemia, obesity History of Any Multi-Drug Resistant Organisms: None Reported Past Surgical History: Appendectomy, Breast Surgery, Hernia Repair, Hysterectomy, Tubal Ligation Past Anesthesia/Blood Transfusion Reactions: No Reported Reaction Past Psychological History: Anxiety Past Alcohol Use History: None Reported Past Drug Use History: None Reported
[2024-07-09 06:30] LABS: African American GFR (CKD) 87 (>60 ml/min/1.73 sqM); Anion Gap 1 mmol/L; Blood Urea Nitrogen 27 mg/dL (7-17); Calcium 8.6 mg/dL (8.4-10.2); Carbon Dioxide 33 mmol/L (22-30); Chloride 106 mmol/L (98-107); Glucose 76 mg/dL (74-99); Non-African American GFR(CKD) 75 (>60 ml/min/1.73 sqM); Potassium 3.2 mmol/L (3.5-5.1); Sodium 140 mmol/L (137-145)
[2024-07-09 08:30] VITALS: BP 110/67; RESP 18; TEMP 98.2
[2024-07-09] MEDS: POTASSIUM CHLORIDE ER 20 MEQ TAB.ER PO STA (10:10)
--- NOTE | 2024-07-09 13:25 | P.DS ---
Providers Date of admission: 07/04/24 12:05 Expected date of discharge: 07/09/24 Attending physician: Mulugeta Michel Consults: 06/28/24 20:38 Consult Physician Routine Consulting Provider: Duncan Perez Consult Reason/Comments: hallucinations Do you want consulting provider notified?: Yes 06/28/24 21:14 Consult Physician Routine Consulting Provider: Mumtaz Orta Consult Reason/Comments: delirium vs dementia Do you want consulting provider notified?: Yes 07/02/24 11:20 Consult Physician Routine Consulting Provider: Mumtaz Orta Consult Reason/Comments: need recomendations. Last note states, will follow along Do you want consulting provider notified?: Yes Primary care physician: Elli Zaidi [facility] Course: Chief Complaint: Altered mentation 84-year-old patient, follows with Dr. Zaidi. Chronic medical conditions include COPD, hyperlipidemia, hypertension, colon cancer, COPD with chronic hypoxic respiratory failure,. Patient able to answer questions but really cannot give any detailed history. Per the EMS report the family told the EMS that patient has been altered since taking her morning medications. Patient speaking to about people not present at times. Patient uses home oxygen 2 L at all times. Patient denies any pain. Appetite is fair. She does tell me she was talking to some people behind her including a small girl. Were not present in the room. Otherwise appears rather comfortable June 30: Admitted for hallucinations. Put on Risperdal 0.5 mg nightly. Last night patient again was restless. Will increase Risperdal to 1 mg nightly. Did eat her breakfast. Still having some hallucinations. July 01: Patient Risperdal was increased to 1 mg last night. Patient did not still sleep well. Still hallucinating. Risperdal today increased to 2 mg at night. Patient still somewhat delirious. Oral intake about 25%. Will add Risperdal 0.125 mg for the morning. July 02: Saw the patient this afternoon. Patient get the morning smaller dose of Risperdal. Spoke to the nurse about 4:30 PM. Patient did rather fair during the daytime. Had about 50% of her breakfast and dinner. Patient to be kept awake until p.m. dose medications. Not to be woken up from then till 6 AM. I called patient's son Hanna and spoke to him on the phone. Give them an update. Lets see how patient does i overnight tomorrow morning. Also patient Sanctura is being discontinued because of its anticholinergic side effect. That could be contributing to patient's symptoms and hallucinations. Also spoke at length to the nurse. Total time spent about 50 minutes with over 30 minutes of discussion and July 03: Patient a bit delirious this morning. Will change her morning dose of Risperdal to as needed. P.m. dose was changed to [facility].5 mg[facility] the patient. With physical therapy patient walked about 6 feet. Hopefully patient will do better with today's change of medications. Spoke to perinatal social worker. Will speak to his son's about discharge planning. Patient was seen by psychiatrist today. She is okay with the current medications. 07/04/2024: Patient is afebrile, heart rate 102, respiratory rate 18, blood pressure 122/52, saturating 94% on 2 L. Lab work including CBC and BMP unremarkable. Psychiatry and neurology has been consulted for evaluation of hallucinations. Brain MRI was negative. EEG was negative for any seizures like activity or epileptiform activity. Patient complaining of productive cough and shortness of breath today. Chest x-ray ordered for further evaluation which showed bilateral patchy airspace opacities and cardiomegaly. Started patient on Rocephin and doxycycline for pneumonia. 07/05 Patient currently confused and sleepy, she was talking earlier this morning Patient could not eat her breakfast because of the oral thrush, it was burning mild. Nystatin was added Also will order swallow evaluation on Sunday as patient has suspected bilateral basal pneumonia Patient with no fever or leukocytosis currently Will check pro- Calcitonin and proBNP Currently covered with ceftriaxone and doxycycline. Also she is small dose of oral Lasix 20 mg twice daily Neurologist following closely and vitamin B12 was low normal and replacement started. MRI of the brain is negative for acute process Patient remains mildly tachycardic. She is saturating well on 3 L oxygen. Discussed with staff 07/06 Patient is more awake today. She is mildly confused but follows command. Has insight into her illness She was able to eat 50% of her meal No chest pain or dyspnea or abdominal pain. She is still mildly tachycardic Labs showing mild anemia with hemoglobin 10.8 She remains on ceftriaxone and doxycycline. Nystatin added for oral thrush. Wong catheter in place July 08: Up in a chair. Answering simple questions. Eating fair. Current dose of medication is working well. Patient not shown any agitation. Following commands. 2 L nasal cannula. July 09: Up in the chair. Comfortable. Answering questions. Occasionally confused. 2 L nasal cannula. Some cough. Oral cavity is clear. Will complete a short course of antibiotic. Discussed with nurse mental health case manager Discussion and discharge planning more than 35 minutes Social history: Apparently lives with her 2 sons. Smoked for 15 years stopped in 2009. 1 pack a day. No alcohol reported. Physical examination: VITAL SIGNS: 98.2, 89, 18, 110 x 67, 95% 2 L GENERAL: Up in a chair, comfortable EYES: Pupils equal. Conjunctiva kylie l. HEENT: External appearance of nose and ears normal, oral cavity grossly normal. Some decreased hearing NECK: JVD not raised; masses not palpable. HEART: First and second heart sounds are normal; no edema. LUNGS: Respiratory rate normal; few right basal crackles ABDOMEN: Soft, nontender, liver spleen not palpable, no masses palpable. PSYCH: Answering some questions. Occasionally confused MUSCULOSKELETAL:No Clubbing/cyanosis;muscles-grossly intact OA NEUROLOGICAL: Cranial nerves grossly intact; no facial asymmetry, power and sensation grossly intact. Moving all 4 limbs INVESTIGATIONS, reviewed in the clinical context: July 08: White count 6.5 hemoglobin 11 platelets 314 potassium 3.5 creatinine 0.6 Brain MRI without contrast [July 01, 2024] nothing acute. No mass. Nonspecific white matter changes. B12 328 folate 6.3 TSH 2.9. Treponema pallidum antibody nonreactive UA: Negative June 28, 2024: White count 7.3 hemoglobin 12.6 platelets 271 sodium 139 potassium 3.9 creatinine 0.91 EKG tracing personally reviewed by me-sinus tachycardia. CT brain: Without contrast unremarkable Chest x-ray film personally reviewed by me-nonspecific Assessment plan: -New onset of auditory and visual hallucinations. In the ER patient told me about people behind her including a girl. Not listening to her.: Delirium/better Risperdal to 1.5 mg nightly.. 0.125 mg in the morning-- as needed. July 02: Sanctura being discontinued because of its side effect of anticholinergic and GREEN BELT effect. 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 Myrbetriq. DC Sanctura -Acute on chronic medical debility 24 feet with physical therapy -Hypercholesteremia Zocor -COPD in a previous smoker Pulmicort. Ventolin as needed -DNR [as per son Hanna] -Medical power of state's attorney, son hanna Jett Disposition: Rehab at [facility] 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, hypertension, hyperlipidemia, obesity History of Any Multi-Drug Resistant Organisms: None Reported Past Surgical History: Appendectomy, Breast Surgery, Hernia Repair, Hysterectomy, Tubal Ligation Past Anesthesia/Blood Transfusion Reactions: No Reported Reaction Past Psychological History: Anxiety Past Alcohol Use History: None Reported Past Drug Use History: None Reported Plan - Discharge Summary Discharge Rx Participant: No New Discharge Prescriptions: New Tamsulosin [Flomax] 0.4 mg PO AC-BID cap Folic Acid 1 mg PO DAILY tab Atorvastatin [Lipitor] 10 mg PO HS tab Nystatin 100,000 Unit/gm Powd [Mycostatin Powder] 1 applic TOPICAL BID each Cefdinir [Omnicef] 300 mg PO BID #6 cap risperiDONE [RisperDAL] 1.5 mg PO HS tab risperiDONE [RisperDAL] 0.125 mg PO DAILY PRN tab PRN Reason: Agitation Calcium Carbonate [Tums] 1,000 mg PO QID PRN tab PRN Reason: Heartburn Cyanocobalamin [Vitamin B-12] 1,000 mcg PO DAILY tab guaiFENesin [Mucinex] 600 mg PO TID #1 tab Ipratropium-Albuterol Nebulize [Duoneb 0.5 mg-3 mg/3 ml Soln] 3 ml INHALATION RT-QID each Continue Mirabegron [Myrbetriq] 50 mg PO DAILY Aspirin [Adult Low Dose Aspirin EC] 81 mg PO DAILY Budesonide [Pulmicort] 0.5 mg INHALATION RT-BID Arformoterol Tartrate 15 mcg INHALATION RT-BID Escitalopram [Lexapro] 10 mg PO DAILY Albuterol Inhaler [Ventolin Hfa Inhaler] 2 puff INHALATION RT-Q6H PRN PRN Reason: Shortness Of Breath Discontinued Simvastatin [Zocor] 20 mg PO HS ALPRAZolam [Xanax] 0.25 mg PO DAILY PRN PRN Reason: Anxiety Solifenacin Succinate 10 mg PO DAILY Discharge Medication List Aspirin [Adult Low Dose Aspirin EC] 81 mg PO DAILY 11/08/17 [History] Mirabegron [Myrbetriq] 50 mg PO DAILY 11/08/17 [History] Albuterol Inhaler [Ventolin Hfa Inhaler] 2 puff INHALATION RT-Q6H PRN 06/28/24 [History] Arformoterol Tartrate 15 mcg INHALATION RT-BID 06/28/24 [History] Budesonide [Pulmicort] 0.5 mg INHALATION RT-BID 06/28/24 [History] Escitalopram [Lexapro] 10 mg PO DAILY 06/28/24 [History] Atorvastatin [Lipitor] 10 mg PO HS tab 07/09/24 [Rx] Calcium Carbonate [Tums] 1,000 mg PO QID PRN tab 07/09/24 [Rx] Cefdinir [Omnicef] 300 mg PO BID #6 cap 07/09/24 [Rx] Cyanocobalamin [Vitamin B-12] 1,000 mcg PO DAILY tab 07/09/24 [Rx] Folic Acid 1 mg PO DAILY tab 07/09/24 [Rx] Ipratropium-Albuterol Nebulize [Duoneb 0.5 mg-3 mg/3 ml Soln] 3 ml INHALATION RT-QID each 07/09/24 [Rx] Nystatin 100,000 Unit/gm Powd [Mycostatin Powder] 1 applic TOPICAL BID each 07/09/24 [Rx] Tamsulosin [Flomax] 0.4 mg PO AC-BID cap 07/09/24 [Rx] guaiFENesin [Mucinex] 600 mg PO TID #1 tab 07/09/24 [Rx] risperiDONE [RisperDAL] 0.125 mg PO DAILY PRN tab 07/09/24 [Rx] risperiDONE [RisperDAL] 1.5 mg PO HS tab 07/09/24 [Rx] Follow up Appointment(s)/Referral(s): Elli Zaidi DO [Primary Care Provider] - 1-2 days ([facility] please call for follow-up appointment.) Bishop Rodriguez MD [Medical Doctor] - 1 Week (Office is not answering at time of discharge. Please call appointment for Probable dementia.)
[2024-07-09 17:07] VITALS: PULSE 76
== END 2024-07-09 18:31 | DRG 884 ==
LOC: EC 16:20 → 1SOBS 20:38 → 4SSUR 20:59 → OBSVTOIN 07-04 12:05
PROVIDERS: ADMIT Hospitalist; ATTEND Hospitalist
DX: F03.B4 Unspecified dementia, moderate, with anxiety (principal); J18.9 Pneumonia, unspecified organism; B37.0 Candidal stomatitis; J44.0 Chronic obstructive pulmonary disease with (acute) lower respiratory infection; J96.11 Chronic respiratory failure with hypoxia; R45.851 Suicidal ideations; F05 Delirium due to known physiological condition; Z66 Do not resuscitate; F03.B2 Unspecified dementia, moderate, with psychotic disturbance; F03.B3 Unspecified dementia, moderate, with mood disturbance; G93.0 Cerebral cysts; F32.A Depression, unspecified; I10 Essential (primary) hypertension; D50.9 Iron deficiency anemia, unspecified; E78.00 Pure hypercholesterolemia, unspecified; R32 Unspecified urinary incontinence; Z79.51 Long term (current) use of inhaled steroids; Z79.82 Long term (current) use of aspirin; Z79.899 Other long term (current) drug therapy; Z85.038 Personal history of other malignant neoplasm of large intestine; Z87.891 Personal history of nicotine dependence; Z90.710 Acquired absence of both cervix and uterus; Z80.0 Family history of malignant neoplasm of digestive organs; Z82.49 Family history of ischemic heart disease and other diseases of the circulatory system
CPT/HCPCS: 36415; 70450; 70551; 71045; 71046; 80048; 80053; 81003; 82140; 82607; 82746; 83735; 83880; 84145; 84443; 85025; 86780; 87636; 93005; 94640; 94760; 95816; 96360; 96361; 99285